=== PATIENT | male | born 1990 | race Caucasian/White ===

== ENCOUNTER 2019-01-10 14:12 | Inpatient (IN) ==
[2019-01-10] MEDS ORDERED: KETOROLAC 30 MG/ML VIAL IV STA (14:55)
[2019-01-10] MEDS ORDERED: SODIUM CHLORIDE 0.9% 1000ML 1,000 ML IV SCH (15:00)
--- NOTE | 2019-01-10 15:13 | Emergency Department Note ---
History of Present Illness General Chief complaint: Illness Stated complaint: BODY ACHES,HEADACHE,RIB PAIN Time Seen by Provider: 01/10/19 14:49 History of Present Illness Maximum Pain Intensity: 5 This is a 28-year-old male with a significant past medical history for that of liver transplantation and on Prograf. He was doing well up until 9 AM this morning when he began with head pressure, diffuse body aches, transition to a headache as well as right upper quadrant/right-sided rib/chest pain. He denies any close contacts, nausea, vomiting, diarrhea. He is short of breath and the pain is worse with a deep breath. He denies any other medical problems or other previous pertinent surgeries. No recent falls or trauma. His last dose of Prograf was at 8 AM. He had Tylenol earlier today. Home Medications Home Medications Medication Instructions Recorded Confirmed Type tacrolimus [Prograf] 2 mg PO Q12H 01/10/19 01/10/19 History Allergies Allergy/AdvReac Type Severity Reaction Status Date / Time albuterol Allergy Mild HIVES Verified 01/10/19 15:30 Past Med/Surg History Medical History Hx of liver transplant Per Dr. 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 He has had mild chronic rejection as late at 2008. At that time, per Dr. 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 Tang' s pediatric GI follow up. 02/09/13 admission for acute liver failure insufficiency, sudden onset with fever, fatigue: 02/10/13 liver bx showed Acute cholangitis 02/13/13 cholangiogram Imaging demonstrated a severe stricture at the biliary /bowel anastomotic site. There was moderate to severe biliary ducts dilatation on the cholangiogram. The anastomotic stenosis was negotiated and an internal external biliary drain was placed in appropriate position 02/20/13 cholangiogram IMAGING FINDINGS: Initial images from the existing biliary catheter demonstrated the catheter with the pigtail loop in satisfactory position. Cholangiogram demonstrated mild biliary ductal dilatation with contrast flow noted in the bowel. A new 8 Swiss biliary catheter was placed and the pigtail loop was appropriately formed in the bowel loop and the catheter sideholes were appropriately placed proximal to the biliary obstruction for adequate drainage. Mid 03-01, saw Dr. Lindo in clinic today, the patient had the biliary tube capped for 2 weeks with no symptoms. He was seen by transplant surgery on 03-11-13, got admitted to [facility] from 03-13-13 to 03-19-13 for disseminated varicella. He underwent CHOLANGIOGRAM BALLOON DILATATION AND CONVERSION OF EXT BILIARY DRAINAGE TO I/E BILIARY CATHETER on 03-24 by IR. He is taking prograf 2mg in AM and 3 mg in PM. Pt had cholangiogram on 04-22-13 that showed PERSISTENT MODERATEY SEVERE CHOLEDOCHO-ENTERIC ANASTOMOTIC STRICTURE. UPSIZED EXISTING 10-FR BILIARY DRAIN TO 12-FR INTERNAL EXTERNAL BILIARY DRAIN--> TUBE LEFT CAPPED Pt was scheduled for I/E biliary catheter exchange and upsizing to 14 Fr on 08-27-13. Last time Rt biliary catheter was changed on 10-21-13, there was a brisk flow of contrast through the catheter. Finally, pt's I/E biliary catheter was pulled out on 12-19-13. Review of labs show that T.bili is down to 2.6, FK levels (05-26-14): 4.2, Cr increased to 1.6 on tacrolimus 2 mg qam, 3 mg q pm. 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) Immunosuppressive therapy (Chronic 02/09/13) Liver transplant rejection (Resolved 02/09/13) Surgical History History of tonsillectomy and adenoidectomy History of tympanoplasty Family History Other No family history of disorders Social History marital status: Single Current Living Situation: Family Other Information That Helps Us Care for You: No Feels Safe at Home: Yes Safety Concerns: Feels Safe At This Time Smoking Status: Never smoker Do You Dip or Chew Tobacco: No Second Hand Exposure: No Tobacco Cessation Education Requested by Patient: No Hx Alcohol Use: No Hx Substance Use: No Beliefs That Will Affect Care: None Preferred Language: Ukrainian Communication Ability: Effective Agitator Operator Required: No Review of Systems A total of 10 systems reviewed and were otherwise negative Physical Exam Vital Signs Vital Signs - 24 hr 01/10/19 14:16 01/10/19 15:05 01/10/19 16:22 Temperature 39.3 C H 37.8 C H Temperature Source Oral Oral Sepsis Recent Fever Within 48 Hours Yes Sepsis New/Unexplained Change in Mental Status No Pulse Rate 144 H 115 H Pulse Rate [Apical] 114 H Pulse Rate [Finger] Pulse Rhythm Regular Pulse Rhythm [Apical] Regular Respiratory Rate 18 18 20 Respiratory Effort / Characteristics Non-Labored Spontaneous Respiratory Depth Normal Normal Respiratory Pattern Blood Pressure 139/89 Blood Pressure [Left Arm] 168/86 H Blood Pressure [Right Arm] Blood Pressure Mean 105 Blood Pressure Mean [Left Arm] 113 Blood Pressure Mean [Right Arm] Blood Pressure Position Sitting Blood Pressure Position [Right Arm] Pulse Oximetry 98 98 97 Oxygen Delivery Method Room Air Room Air Room Air 01/10/19 18:00 01/10/19 19:26 01/10/19 20:13 Temperature 37.3 C Temperature Source Oral Sepsis Recent Fever Within 48 Hours Sepsis New/Unexplained Change in Mental Status Pulse Rate 97 H Pulse Rate [Apical] 106 H 103 H Pulse Rate [Finger] Pulse Rhythm Pulse Rhythm [Apical] Regular Respiratory Rate 18 18 20 Respiratory Effort / Characteristics Non-Labored Non-Labored Spontaneous Respiratory Depth Normal Normal Respiratory Pattern Regular Regular Blood Pressure 125/96 Blood Pressure [Left Arm] 143/92 H Blood Pressure [Right Arm] 148/106 H Blood Pressure Mean Blood Pressure Mean [Left Arm] 109 Blood Pressure Mean [Right Arm] 120 Blood Pressure Position Blood Pressure Position [Right Arm] Lying Pulse Oximetry 97 97 100 Oxygen Delivery Method Room Air Room Air Room Air 01/10/19 20:30 01/10/19 23:13 Temperature 37.0 C Temperature Source Oral Sepsis Recent Fever Within 48 Hours Sepsis New/Unexplained Change in Mental Status Pulse Rate 108 H Pulse Rate [Apical] Pulse Rate [Finger] 102 H Pulse Rhythm Pulse Rhythm [Apical] Respiratory Rate 18 Respiratory Effort / Characteristics Respiratory Depth Normal Respiratory Pattern Blood Pressure Blood Pressure [Left Arm] Blood Pressure [Right Arm] 149/98 H Blood Pressure Mean Blood Pressure Mean [Left Arm] Blood Pressure Mean [Right Arm] 115 Blood Pressure Position Blood Pressure Position [Right Arm] Sitting Pulse Oximetry 97 Oxygen Delivery Method Room Air VITAL SIGNS - Vital signs and nursing notes were reviewed. Tachycardic, febrile. GENERAL - 28-year-old male appearign his stated age who is in no acute distress but does appear to be ill. Communicates well with provider and answers questions appropriately. SKIN - Without rashes. No meningeal or petechial rash. Questionable jaundiced appearing. HEAD - NC/AT. EYES - PERRL with EOMI bilaterally. Sclera anicteric. EARS - No deformities of external structures noted on gross examination bilaterally. NOSE - Midline and without cyanosis. No epistaxis or purulent drainage noted. MOUTH/OROPHARYNX - Without perioral cyanosis. NECK - Neck with FROM. Supple to palpation. No lymphadenopathy noted. No nuchal rigidity. LUNGS - Chest wall symmetric without accessory muscle use, intercostals retractions, or central cyanosis. Normal vesicular breath sounds CTA B/L. No wheezes, rales, or rhonchi appreciated. CARDIAC - RRR with S1/S2. No murmur, rubs, or gallops appreciated. There is reproducible right sided rib tenderness/right flank tenderness. ABDOMEN - Abdominal contour normal without pulsations or visible masses. BS normoactive all four quadrants. No tenderness, palpable masses, hepatosplenomegaly, or ascites noted. EXTREMITIES - No clubbing or peripheral cyanosis. No pretibial edema present. +3 /5 radial, posterior tibial, and dorsalis pedis pulses palpated throughout. +5/ 5 strength noted in UE/LE bilaterally. NEUROLOGIC - Cranial nerves II through XII grossly intact. Sensory intact to light touch throughout. PSYCH - A&Ox3 and cooperates fully with examiner. Pt is very pleasant and interacts well with examiner. Course Administered Medications Sodium Chloride (Nss) 500 mls @ 125 mls/hr IV .Q4H TRENT Stop: 02/09/19 19:14 Last Infusion: 01/10/19 21:20 Dose: 125 mls/hr Infusion: 01/10/19 20:50 Dose: 0 mls/hr Admin: 01/10/19 20:48 Dose: 125 mls/hr Ceftriaxone Sodium 1,000 mg/ (Dextrose) 50 mls @ 100 mls/hr IV Q24H [facility]; Protocol Stop: 01/12/19 20:29 Last Infusion: 01/10/19 21:20 Dose: 0 mls/hr Admin: 01/10/19 20:48 Dose: 100 mls/hr Tacrolimus (Prograf) 2 mg PO Q12H [facility] Stop: 02/09/19 20:29 Last Admin: 01/10/19 20:23 Dose: 2 mg Discontinued Medications Sodium Chloride (Nss 1000ml) 1,000 mls @ 999 mls/hr IV .Q1H1M TRENT Stop: 01/10/19 16:00 Last Infusion: 01/10/19 16:45 Dose: 0 mls/hr Admin: 01/10/19 15:40 Dose: 999 mls/hr Magnesium Sulfate/Dextrose (Magnesium Sulfate / D5w) 1 gm in 100 mls @ 100 mls/ hr IV Q1H TRENT Stop: 01/10/19 20:59 Last Infusion: 01/10/19 23:47 Dose: 0 mls/hr Admin: 01/10/19 22:20 Dose: 100 mls/hr Infusion: 01/10/19 22:20 Dose: 100 mls/hr Admin: 01/10/19 21:27 Dose: 100 mls/hr Ioversol (Optiray 320 125ml) 120 ml IV ONCE PRN PRN Reason: Interaction Checking Stop: 01/14/19 16:56 Last Admin: 01/10/19 16:58 Dose: 120 ml Ketorolac Tromethamine (Toradol) 30 mg IV NOW STA Stop: 01/10/19 14:56 Last Admin: 01/10/19 15:40 Dose: 30 mg Morphine Sulfate (Morphine Sulfate) 4 mg IV NOW STA Stop: 01/10/19 16:10 Last Admin: 01/10/19 16:21 Dose: 4 mg Medical Decision Making Laboratory Data Result diagrams: 01/10/19 15:35 01/10/19 15:35 Lab Results 01/10/19 01/10/19 01/10/19 Range/Units 15:08 15:08 15:35 WBC 12.61 H (4.8-10.8) K/uL RBC 5.26 (4.7-6.1) M/uL Hgb 15.2 (14.0-18.0) g/dL Hct 41.2 L (42-52) % MCV 78.3 L (80-100) fL MCH 28.9 (25-34) pg MCHC 36.9 H (32-36) g/dL RDW Std Deviation 38.7 (36.4-46.3) fL RDW Coeff of Emre 13.8 (11.5-14.5) % Plt Count 119 L (130-400) K/uL MPV 10.3 (7.4-10.4) fL Immature Gran % (Auto) 0.2 % Neut % (Auto) 90.9 % Lymph % (Auto) 2.6 % Lynn % (Auto) 6.2 % Eos % (Auto) 0.1 % Baso % (Auto) 0.0 % Immature Gran # (Auto) 0.03 H (0.00-0.02) K/uL Neut # (Auto) 11.46 H (1.4-6.5) K/uL Lymph # (Auto) 0.33 L (1.2-3.4) K/uL Lynn # (Auto) 0.78 H (0.11-0.59) K/uL Eos # (Auto) 0.01 (0-0.5) K/uL Baso # (Auto) 0.00 (0-0.2) K/uL PT (9.0-12.0) Seconds INR (0.9-1.1) APTT (21.0-31.0) Seconds PTT Ratio Sodium (136-145) mmol/L Potassium (3.5-5.1) mmol/L Chloride (98-107) mmol/L Carbon Dioxide (21-32) mmol/L Anion Gap (3-11) BUN (7-18) mg/dl Creatinine (0.6-1.4) mg/dl Est Cr Clr Drug Dosing ml/min Est GFR ( Amer) Est GFR (Non-Af Amer) BUN/Creatinine Ratio (10-20) Glucose (70-99) mg/dl Lactate (0.4-2.0) mmol/L Calcium (8.5-10.1) mg/dl Magnesium (1.8-2.4) mg/dl Total Bilirubin (0.2-1) mg/dl Direct Bilirubin (0-0.2) mg/dl AST (15-37) U/L ALT (12-78) U/L Alkaline Phosphatase (45-117) U/L Troponin I (0-0.045) ng/ml Total Protein (6.4-8.2) gm/dl Albumin (3.4-5.0) gm/dl Globulin (2.5-4.0) gm/dl Albumin/Globulin Ratio (0.9-2) Lipase (73-393) U/L Procalcitonin (0-0.5) ng/ml Urine Color Urine Appearance (Clear) Urine pH (4.5-7.5) Ur Specific [place] (1.000-1.030) Urine Protein (Negative) Urine Glucose (UA) (Negative) Urine Ketones (Negative) Urine Blood (Negative) Urine Nitrite (Negative) Urine Bilirubin (Negative) Urine Urobilinogen (Negative) Ur Leukocyte Esterase (Negative) Urine WBC (Auto) (0-5) /hpf Urine RBC (Auto) (0-4) /hpf U Hyaline Cast (Auto) (0-5) /lpf U Epithel Cells (Auto) (0-5) /lpf Urine Bacteria (Auto) (Negative) Lyme Disease IgG Ab (Negative) Lyme Disease IgM Ab (Negative) Monoscreen (Negative) Influenza Type A Ag Neg for Influ A (Neg) Influenza Type A (PCR) Neg for Influ A (Neg) Influenza Type B Ag Neg for Influ B (Neg) Influenza Type B (PCR) Neg for Influ B (Neg) 01/10/19 01/10/19 01/10/19 Range/Units 15:35 15:35 15:35 WBC (4.8-10.8) K/uL RBC (4.7-6.1) M/uL Hgb (14.0-18.0) g/dL Hct (42-52) % MCV (80-100) fL MCH (25-34) pg MCHC (32-36) g/dL RDW Std Deviation (36.4-46.3) fL RDW Coeff of Emre (11.5-14.5) % Plt Count (130-400) K/uL MPV (7.4-10.4) fL Immature Gran % (Auto) % Neut % (Auto) % Lymph % (Auto) % Lynn % (Auto) % Eos % (Auto) % Baso % (Auto) % Immature Gran # (Auto) (0.00-0.02) K/uL Neut # (Auto) (1.4-6.5) K/uL Lymph # (Auto) (1.2-3.4) K/uL Lynn # (Auto) (0.11-0.59) K/uL Eos # (Auto) (0-0.5) K/uL Baso # (Auto) (0-0.2) K/uL PT 12.2 H (9.0-12.0) Seconds INR 1.2 H (0.9-1.1) APTT 27.5 (21.0-31.0) Seconds PTT Ratio 1.0 Sodium 134 L (136-145) mmol/L Potassium 3.5 (3.5-5.1) mmol/L Chloride 101 (98-107) mmol/L Carbon Dioxide 26 (21-32) mmol/L Anion Gap 7.0 (3-11) BUN 16 (7-18) mg/dl Creatinine 1.47 H (0.6-1.4) mg/dl Est Cr Clr Drug Dosing 90.1 ml/min Est GFR ( Amer) 74.2 Est GFR (Non-Af Amer) 64.0 BUN/Creatinine Ratio 11.0 (10-20) Glucose 104 H (70-99) mg/dl Lactate 1.1 (0.4-2.0) mmol/L Calcium 9.0 (8.5-10.1) mg/dl Magnesium 1.4 L (1.8-2.4) mg/dl Total Bilirubin 5.8 H (0.2-1) mg/dl Direct Bilirubin 0.5 H (0-0.2) mg/dl AST 44 H (15-37) U/L ALT 82 H (12-78) U/L Alkaline Phosphatase 117 (45-117) U/L Troponin I < 0.015 (0-0.045) ng/ml Total Protein 8.1 (6.4-8.2) gm/dl Albumin 4.2 (3.4-5.0) gm/dl Globulin 3.9 (2.5-4.0) gm/dl Albumin/Globulin Ratio 1.1 (0.9-2) Lipase 101 (73-393) U/L Procalcitonin (0-0.5) ng/ml Urine Color Urine Appearance (Clear) Urine pH (4.5-7.5) Ur Specific [place] (1.000-1.030) Urine Protein (Negative) Urine Glucose (UA) (Negative) Urine Ketones (Negative) Urine Blood (Negative) Urine Nitrite (Negative) Urine Bilirubin (Negative) Urine Urobilinogen (Negative) Ur Leukocyte Esterase (Negative) Urine WBC (Auto) (0-5) /hpf Urine RBC (Auto) (0-4) /hpf U Hyaline Cast (Auto) (0-5) /lpf U Epithel Cells (Auto) (0-5) /lpf Urine Bacteria (Auto) (Negative) Lyme Disease IgG Ab (Negative) Lyme Disease IgM Ab (Negative) Monoscreen (Negative) Influenza Type A Ag (Neg) Influenza Type A (PCR) (Neg) Influenza Type B Ag (Neg) Influenza Type B (PCR) (Neg) 01/10/19 01/10/19 01/10/19 Range/Units 15:35 19:35 20:32 WBC (4.8-10.8) K/uL RBC (4.7-6.1) M/uL Hgb (14.0-18.0) g/dL Hct (42-52) % MCV (80-100) fL MCH (25-34) pg MCHC (32-36) g/dL RDW Std Deviation (36.4-46.3) fL RDW Coeff of Emre (11.5-14.5) % Plt Count (130-400) K/uL MPV (7.4-10.4) fL Immature Gran % (Auto) % Neut % (Auto) % Lymph % (Auto) % Lynn % (Auto) % Eos % (Auto) % Baso % (Auto) % Immature Gran # (Auto) (0.00-0.02) K/uL Neut # (Auto) (1.4-6.5) K/uL Lymph # (Auto) (1.2-3.4) K/uL Lynn # (Auto) (0.11-0.59) K/uL Eos # (Auto) (0-0.5) K/uL Baso # (Auto) (0-0.2) K/uL PT (9.0-12.0) Seconds INR (0.9-1.1) APTT (21.0-31.0) Seconds PTT Ratio Sodium (136-145) mmol/L Potassium (3.5-5.1) mmol/L Chloride (98-107) mmol/L Carbon Dioxide (21-32) mmol/L Anion Gap (3-11) BUN (7-18) mg/dl Creatinine (0.6-1.4) mg/dl Est Cr Clr Drug Dosing ml/min Est GFR ( Amer) Est GFR (Non-Af Amer) BUN/Creatinine Ratio (10-20) Glucose (70-99) mg/dl Lactate (0.4-2.0) mmol/L Calcium (8.5-10.1) mg/dl Magnesium (1.8-2.4) mg/dl Total Bilirubin (0.2-1) mg/dl Direct Bilirubin (0-0.2) mg/dl AST (15-37) U/L ALT (12-78) U/L Alkaline Phosphatase (45-117) U/L Troponin I (0-0.045) ng/ml Total Protein (6.4-8.2) gm/dl Albumin (3.4-5.0) gm/dl Globulin (2.5-4.0) gm/dl Albumin/Globulin Ratio (0.9-2) Lipase (73-393) U/L Procalcitonin 3.79 H (0-0.5) ng/ml Urine Color Yellow Urine Appearance Clear (Clear) Urine pH 5.5 (4.5-7.5) Ur Specific [place] 1.038 H (1.000-1.030) Urine Protein Negative (Negative) Urine Glucose (UA) Negative (Negative) Urine Ketones Negative (Negative) Urine Blood Trace H (Negative) Urine Nitrite Negative (Negative) Urine Bilirubin Negative (Negative) Urine Urobilinogen Positive H (Negative) Ur Leukocyte Esterase Negative (Negative) Urine WBC (Auto) 0 (0-5) /hpf Urine RBC (Auto) 0-4 (0-4) /hpf U Hyaline Cast (Auto) 0 (0-5) /lpf U Epithel Cells (Auto) 0-5 (0-5) /lpf Urine Bacteria (Auto) Negative (Negative) Lyme Disease IgG Ab Positive H (Negative) Lyme Disease IgM Ab Negative (Negative) Monoscreen Negative (Negative) Influenza Type A Ag (Neg) Influenza Type A (PCR) (Neg) Influenza Type B Ag (Neg) Influenza Type B (PCR) (Neg) Imaging Data Radiologist's Impression: XR chest 1V portable HISTORY: 28 years-old Male fever, R sided chest pain fever with acute right- sided chest pain COMPARISON: Chest radiograph 03/26/2013 TECHNIQUE: Portable AP view of the chest FINDINGS: Cardiomediastinal and hilar silhouettes are within normal limits. There is no pneumothorax, pleural effusion, focal airspace consolidation or overt pulmonary edema. Bones of the chest appear grossly intact. IMPRESSION: No acute process. The above report was generated using voice recognition software. It may contain grammatical, syntax or spelling errors. Electronically signed by: Javi Hodge M.D. 01/10/2019 3:[address] angio chest PE protocol CLINICAL HISTORY: 28 years-old Male presenting with right chest pain worse with inspiration, febrile. TECHNIQUE: Multidetector CT angiography of the chest was performed after administration of intravenous contrast. 3-D volumetric and/or maximum intensity projection (MIP) images were subsequently reconstructed for review. IV contrast : 120 mL of Optiray 320. One or more dose lowering techniques were used consistent with the principles of ALARA (as low as reasonably achievable), including automatic exposure control, mA or kV adjustment to individual patient size, and/or use of iterative reconstruction. COMPARISON: Chest x-ray from earlier today. CT DOSE (mGy.cm): The estimated cumulative dose is 1218.84. FINDINGS: Inspector Cold Working topogram: Unremarkable. Pulmonary vasculature: The study is suboptimal for the assessment of the pulmonary vascular tree secondary to timing of the contrast bolus and respiratory motion artifact. No filling defect within the pulmonary arteries to suggest embolus. Main pulmonary artery is not enlarged. No flattening of the interventricular septum. No intracardiac filling defect. No reflux of contrast into the hepatic veins. Remaining chest: Soft tissues: Normal thyroid and thoracic inlet. No axillary, supraclavicular, mediastinal, or hilar lymphadenopathy. Prominent pericardial lymph node measuring 8 mm in the short axis (series 4 image 17). Normal aorta. Normal heart size. Trace bilateral pleural effusions. No pericardial effusion. Fat- containing right Bochdalek hernia. Pneumobilia. This was present in 2012. Lungs and airways: No pneumothorax. Central airways patent. No focal infiltrate or nodule. Pulmonary arteries are not enlarged relative to adjacent bronchi. No interlobular septal thickening. Musculoskeletal: Suggestion of increased sclerosis of the vertebral bodies. Mild height loss of the mid thoracic vertebral bodies. IMPRESSION: 1. No evidence of pulmonary embolus. No acute intrathoracic pathology. 2. Bilateral trace pleural effusions. 3. Mid thoracic vertebral body height loss combined with possible abnormal sclerosis of the vertebral bodies. This may suggest underlying renal osteodystrophy. Electronically signed by: Hernando Stallings M.D. 01/10/2019 5:[address] abd pelvis IV con only CLINICAL HISTORY: 28 years-old Male presenting with R chest pain, worse with inspiration. Febrile, history liver transplant. TECHNIQUE: Multidetector CT of the abdomen and pelvis was performed after the administration of intravenous contrast. IV contrast: 120 mL of Optiray 320. One or more dose lowering techniques were used consistent with the principles of ALARA (as low as reasonably achievable), including automatic exposure control, mA or kV adjustment to individual patient size, and/or use of iterative reconstruction. COMPARISON: 03/13/2013. CT DOSE (mGy.cm): The estimated cumulative dose is 1218.84 mGy.cm. FINDINGS: Inspector Cold Working topogram: Unremarkable. Lung bases: Normal heart size. Trace bilateral pleural effusions. These are similar to prior. No pericardial effusion. Bochdalek hernia on the right containing fat. No focal infiltrate or nodule at the lung bases. Liver: Reportedly the patient is status post liver transplant. The orthotopic liver has a micronodular contour. No focal lesion. Patent hepatic vasculature. Biliary: Pneumobilia again present secondary to the hepaticojejunostomy. Mild to moderate biliary ductal dilatation in segment 8 and 5 slightly progressed from prior exam. Gallbladder surgically absent. Pancreas: Moderate parenchymal atrophy. Spleen: Enlarged measuring nearly 16 cm in maximal sagittal dimension. Adrenal glands: Normal. Kidneys and ureters: Focal hypodensity at the right upper pole may represent a cyst versus scarring. Small cyst also noted in the left kidney area kidneys otherwise normal in appearance. No nephrolithiasis or hydronephrosis. Ureters nondistended. Bladder: Circumferential bladder wall thickening. Pelvic organs: Prostate and seminal vesicles normal. Bowel: Mild stool burden throughout normal caliber colon. The appendix is mildly prominent with a diameter of nearly 8 mm. The appearance is similar to prior exam. No periappendiceal fat infiltration or wall thickening. No bowel obstruction. Patent enteroenteric anastomosis in the mid abdomen. A hepaticojejunostomy is present. No pathologic distention of the biliary limb. Peritoneal cavity: No free fluid or intraperitoneal gas. Lymph nodes: Few subcentimeter prominent mesenteric lymph nodes, possibly reactive. Vasculature: Aorta and IVC patent and normal in caliber. The splenic vein is engorged. There is tortuosity of splenic vessels. No other gross evidence of varices. Abdominal wall: Normal. Musculoskeletal: Suggestion of mild diffuse sclerosis of the osseous structures. IMPRESSION: 1. Micronodular contour of the liver could suggest underlying fibrosis/ cirrhosis. Reportedly the patient is status post liver transplant. Patent hepatic vasculature. 2. Stable to slightly progressed biliary ductal dilatation in segment 8 and 5 likely relates biliary injury/necrosis in the immediate perioperative setting and chronic sequelae. 3. Portal hypertension with splenomegaly. 4. Circumferential bladder wall thickening could suggest cystitis. Correlate with urinalysis. 5. Questionable diffuse osseous sclerosis. Correlate for possible underlying osteodystrophy. Electronically signed by: Hernando Stallings M.D. 01/10/2019 5:16 PM MDM Narrative Patient was seen and evaluated as above in room C1. Review was performed of nursing notes and vital signs. After obtaining a thorough history and physical examination the above work up was performed. He presents to us today tachycardic, and with a fever. He does appear to be ill but is nontoxic on exam. IV access was established. He was ordered fluids, as well as Toradol for pain. He was reevaluated with persistence and given morphine. There is leukocytosis of 12.61 without emergent anemia noted. Creatinine of 1.47. Total bilirubin 5.8, with direct bilirubin of 0.5. Mild elevation of AST and ALT. Troponin negative. Lactic is normal. Blood cultures pending. Urinalysis reveals positive urobilinogen but no evidence of infection. Chest x- ray normal. CAT scan was then obtained given his persistent pain in the right ribs which is exacerbated with a deep breath. No PE. Also abdomen pelvis were ordered. No direct finding which would correlate with his presentation today. Although there certainly are additional findings which will need further addressed. I do believe that further evaluation in the inpatient setting is warranted for the fever and presentation. Case also discussed with the attending physician, and subsequently the hospitalist. At this time given that no source has been found do believe that we can wait to add empiric antibiotics pending evaluation by the hospitalist. Please refer to further documentation regarding his stay. Additionally, I did discuss whether or not to perform lumbar puncture with the patient, family at bedside and the attending physician , at this time through shared decision making with the patient we will refrain. In the evaluation and treatment of this patient the following differential diagnoses were entertained: Sepsis, cellulitis, influenza, Lyme disease, transplant rejection, UTI, pericarditis, PE, pneumonia, among others. Impression & Plan Fever, Hyperbilirubinemia, Rib pain on right side, Headache Discharge Plan Visit Data *Final* Discharge Date/Time: 01/10/19 19:26 Chief Complaint: Illness Stated Complaint: BODY ACHES,HEADACHE,RIB PAIN ED Provider: Jesus Horner ED Midlevel Provider: Max Singletary Discharge Problem: Fever, Hyperbilirubinemia, Rib pain on right side, Headache Patient Disposition: Admitted As Inpatient Condition: Good Discharge Instructions Interventions: ED Discharge Assessment Last Done: 01/10/19 19:26
[2019-01-10 15:55] LABS: Eosinophils # (auto) 0.01 K/uL (0-0.5); Eosinophils % (auto) 0.1 %; Hematocrit (blood only) 41.2 % (42-52); Hemoglobin 15.2 g/dL (14.0-18.0); Immature Granulocytes # (auto) 0.03 K/uL (0.00-0.02); Immature Granulocytes % (auto) 0.2 %; Lymphocytes # (auto) 0.33 K/uL (1.2-3.4); Lymphocytes % (auto) 2.6 %; Mean Corpuscular Hgb Conc 36.9 g/dL (32-36); Mean Corpuscular Volume 78.3 fL (80-100); Mean Platelet Volume 10.3 fL (7.4-10.4); Monocytes # (auto) 0.78 K/uL (0.11-0.59); Monocytes % (auto) 6.2 %; Neutrophils # (auto) 11.46 K/uL (1.4-6.5); Neutrophils % (auto) 90.9 %; Platelet Count 119 K/uL (130-400); RDW Coefficient of Variation 13.8 % (11.5-14.5); RDW Standard Deviation 38.7 fL (36.4-46.3); Red Blood Count 5.26 M/uL (4.7-6.1); White Blood Count 12.61 K/uL (4.8-10.8)
--- NOTE | 2019-01-10 15:57 | XRay Report ---
XR chest 1V portable HISTORY: 28 years-old Male fever, R sided chest pain fever with acute right-sided chest pain COMPARISON: Chest radiograph 03/26/2013 TECHNIQUE: Portable AP view of the chest FINDINGS: Cardiomediastinal and hilar silhouettes are within normal limits. There is no pneumothorax, pleural e ffusion, focal airspace consolidation or overt pulmonary edema. Bones of the chest appear grossly int act. IMPRESSION: No acute process. The above report was generated using voice recognition software. It may contain grammatical, syntax o r spelling errors. Electronically signed by: Javi Hodge M.D. 01/10/2019 3:55 PM
[2019-01-10 16:07] LABS: INR 1.2 (0.9-1.1); Partial Thromboplastin Time 27.5 Seconds (21.0-31.0); Prothrombin Time 12.2 Seconds (9.0-12.0)
[2019-01-10] MEDS ORDERED: MoRPHine SULFATE 4 MG/ML 1 ML CARP\\VIAL IV STA (16:09)
[2019-01-10 16:24] LABS: Alanine Aminotransferase 82 U/L (12-78); Albumin Level 4.2 gm/dl (3.4-5.0); Aspartate Aminotransferase 44 U/L (15-37); Bilirubin Direct 0.5 mg/dl (0-0.2); Blood Urea Nitrogen 16 mg/dl (7-18); Carbon Dioxide 26 mmol/L (21-32); Chloride 101 mmol/L (98-107); Creatinine Clr Calc Pharmacy 90.1 ml/min; Est GFR (African American) 74.2; Glucose 104 mg/dl (70-99); Magnesium 1.4 mg/dl (1.8-2.4); Potassium 3.5 mmol/L (3.5-5.1); Sodium 134 mmol/L (136-145)
[2019-01-10 16:44] LABS: Albumin Globulin Ratio 1.1 (0.9-2); Alkaline Phosphatase 117 U/L (45-117); Bilirubin,Total 5.8 mg/dl (0.2-1); Globulin 3.9 gm/dl (2.5-4.0); Total Protein 8.1 gm/dl (6.4-8.2); Troponin I < 0.015 ng/ml (0-0.045)
[2019-01-10] MEDS ORDERED: OPTIRAY 320 125ml IV PRN (16:57)
--- NOTE | 2019-01-10 17:07 | CT Scan Report ---
CT angio chest PE protocol CLINICAL HISTORY: 28 years-old Male presenting with right chest pain worse with inspiration, febrile. TECHNIQUE: Multidetector CT angiography of the chest was performed after administration of intravenou s contrast. 3-D volumetric and/or maximum intensity projection (MIP) images were subsequently reconst ructed for review. IV contrast: 120 mL of Optiray 320. One or more dose lowering techniques were used consistent with the principles of ALARA (as low as reasonably achievable), including automatic expos ure control, mA or kV adjustment to individual patient size, and/or use of iterative reconstruction. COMPARISON: Chest x-ray from earlier today. CT DOSE (mGy.cm): The estimated cumulative dose is 1218.84. FINDINGS: [place] topogram: Unremarkable. Pulmonary vasculature: The study is suboptimal for the assessment of the pulmonary vascular tree secondary to timing of the contrast bolus and respiratory motion artifact. No filling defect within the pulmonary arteries to garcia ggest embolus. Main pulmonary artery is not enlarged. No flattening of the interventricular septum. N o intracardiac filling defect. No reflux of contrast into the hepatic veins. Remaining chest: Soft tissues: Normal thyroid and thoracic inlet. No axillary, supraclavicular, mediastinal, or hilar lymphadenopathy. Prominent pericardial lymph node measuring 8 mm in the short axis (series 4 image 17 ). Normal aorta. Normal heart size. Trace bilateral pleural effusions. No pericardial effusion. Fat-c ontaining right Bochdalek hernia. Pneumobilia. This was present in 2013. Lungs and airways: No pneumothorax. Central airways patent. No focal infiltrate or nodule. Pulmonary arteries are not enlarged relative to adjacent bronchi. No interlobular septal thickening. Musculoskeletal: Suggestion of increased sclerosis of the vertebral bodies. Mild height loss of the m id thoracic vertebral bodies. IMPRESSION: 1. No evidence of pulmonary embolus. No acute intrathoracic pathology. 2. Bilateral trace pleural effusions. 3. Mid thoracic vertebral body height loss combined with possible abnormal sclerosis of the vertebra l bodies. This may suggest underlying renal osteodystrophy. Electronically signed by: Hernando Stallings M.D. 01/10/2019 5:05 PM
--- NOTE | 2019-01-10 17:18 | CT Scan Report ---
CT abd pelvis IV con only CLINICAL HISTORY: 28 years-old Male presenting with R chest pain, worse with inspiration. Febrile, hi story liver transplant. TECHNIQUE: Multidetector CT of the abdomen and pelvis was performed after the administration of intra venous contrast. IV contrast: 120 mL of Optiray 320. One or more dose lowering techniques were used c onsistent with the principles of ALARA (as low as reasonably achievable), including automatic exposur e control, mA or kV adjustment to individual patient size, and/or use of iterative reconstruction. COMPARISON: 03/13/2013. CT DOSE (mGy.cm): The estimated cumulative dose is 1218.84 mGy.cm. FINDINGS: Protective Service Specialist topogram: Unremarkable. Lung bases: Normal heart size. Trace bilateral pleural effusions. These are similar to prior. No darcie cardial effusion. Bochdalek hernia on the right containing fat. No focal infiltrate or nodule at the lung bases. Liver: Reportedly the patient is status post liver transplant. The orthotopic liver has a micronodula r contour. No focal lesion. Patent hepatic vasculature. Biliary: Pneumobilia again present secondary to the hepaticojejunostomy. Mild to moderate biliary joellen palma dilatation in segment 8 and 5 slightly progressed from prior exam. Gallbladder surgically absent. Pancreas: Moderate parenchymal atrophy. Spleen: Enlarged measuring nearly 16 cm in maximal sagittal dimension. Adrenal glands: Normal. Kidneys and ureters: Focal hypodensity at the right upper pole may represent a cyst versus scarring. Small cyst also noted in the left kidney area kidneys otherwise normal in appearance. No nephrolithia sis or hydronephrosis. Ureters nondistended. Bladder: Circumferential bladder wall thickening. Pelvic organs: Prostate and seminal vesicles normal. Bowel: Mild stool burden throughout normal caliber colon. The appendix is mildly prominent with a luis alfredo meter of nearly 8 mm. The appearance is similar to prior exam. No periappendiceal fat infiltration or wall thickening. No bowel obstruction. Patent enteroenteric anastomosis in the mid abdomen. A hepati cojejunostomy is present. No pathologic distention of the biliary limb. Peritoneal cavity: No free fluid or intraperitoneal gas. Lymph nodes: Few subcentimeter prominent mesenteric lymph nodes, possibly reactive. Vasculature: Aorta and IVC patent and normal in caliber. The splenic vein is engorged. There is tortu osity of splenic vessels. No other gross evidence of varices. Abdominal wall: Normal. Musculoskeletal: Suggestion of mild diffuse sclerosis of the osseous structures. IMPRESSION: 1. Micronodular contour of the liver could suggest underlying fibrosis/cirrhosis. Reportedly the pat ient is status post liver transplant. Patent hepatic vasculature. 2. Stable to slightly progressed biliary ductal dilatation in segment 8 and 5 likely relates biliary injury/necrosis in the immediate perioperative setting and chronic sequelae. 3. Portal hypertension with splenomegaly. 4. Circumferential bladder wall thickening could suggest cystitis. Correlate with urinalysis. 5. Questionable diffuse osseous sclerosis. Correlate for possible underlying osteodystrophy. Electronically signed by: Hernando Stallings M.D. 01/10/2019 5:16 PM
--- NOTE | 2019-01-10 19:20 | History & Physical Report ---
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 Sx started approx 9am. Developed body aches, myalgias, sweats, feverish, headache, right sided chest pain. Pt met SIRS critera on admission febrile 39.3, tachycardic at 115, WBC 12.6k other notable abnormalities Na 134, Cr 1.47, PLT 119, INR 1.2, Tbili 5.8, Direct 0.5, AST 44, ALT 82, Mag 1.4 He received 1L IVF in ED No IV antibiotics given Source of infection: Unknown, CXR negative, UA and blood cultures pending, flu negative, ?viral syndrome Pt last bilirubin was done in 2014 and was elevated at 2.6 but lft wnl (Pt allograft liver tested + for [place] syndrome) which would cause notable indirect bilirubin elevation -admit to telemetry -continue IVF 125cc/hr -Give 1g rocephin x 1 now -check viral serologies, lyme titer, influenza pcr -await blood and urine cultures -repeat cbc, cmp in a.m. 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 Micronodular contour of the liver could suggest underlying fibrosis/ cirrhosis. Reportedly the patient is status post liver transplant. Patent hepatic vasculature. 2. Stable to slightly progressed biliary ductal dilatation in segment 8 and 5 likely relates biliary injury/necrosis in the immediate perioperative setting and chronic sequelae. 3. Portal hypertension with splenomegaly. 4. Circumferential bladder wall thickening could suggest cystitis. Correlate with urinalysis. 5. Questionable diffuse osseous sclerosis. Correlate for possible underlying osteodystrophy. -notable lab abnormalities include thrombocytopenia (? if chronic vs acute inflammatory resp), elevated bili/indirect bili -monitor lft if continue to worsen would recommend GI involvement (3) Immunocompromised state: -on prograf, check prograf level (4) Hypomagnesemia: -Mag sulfate x 2 ordered -repeat mag in a.m. (5) HTN (hypertension): -had been on labetalol but currently not taking -will need to monitor blood pressure accordingly (6) [id number]-[id number] deficiency: (7) DVT prophylaxis: -encourage ambulation Disposition: d/c to home when able Follow up: PCP Dr. Zavala upon discharge; also patient has not followed up with Hepatology since 2014 it will be imperative a follow up is made. He use to see Dr. Ariza in [place] and it is recommended he follow up with new provider in [place]. Patient was seen in collaboration with Dr. Villagran, please see addendum Starting 01/11/19 pt will be followed by Dr. Gallegos History of Present Illness Chief Complaint: Fever, acute illness x 1 day. 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 Sx started approx 9am. Developed body aches, myalgias, sweats, feverish, headache, right sided chest pain. Sx developed abruptly. R chest wall discomfort was non radiating, located R lateral chest wall, worse with inspiration, nothing made better. Appetite is normal. He denies chills, dizziness, lightheaded, sob, palpitations, n/v/d, abdominal pain, dysuria, hematuria, increased urg/freq with urination. Mother is at bedside. States no sick contacts, "we don't let him leave the house much." No recent travel or insect bites. While in ED pt received IVF and chest discomfort resolved with IV toradol. According to SEAN Singletary in ED right chest wall discomfort was lateral and reproducible, again relieved with toradol. Allergies Allergy/AdvReac Type Severity Reaction Status Date / Time albuterol Allergy Mild HIVES Verified 01/10/19 15:30 Home Medications Home Medications Medication Instructions Recorded Confirmed Type tacrolimus [Prograf] 2 mg PO Q12H 01/10/19 01/10/19 History Past Med/Surg History Medical History Hx of liver transplant Per Dr. Ariza note from 05/13/2015: "He is status post a OLT at [facility] in [place] x2 (1992 for A1AT and 1995 for chronic rejection). He has had mild chronic rejection as late at 2008. At that time, per Dr. 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 Tang' s pediatric GI follow up. 02/09/13 admission for acute liver failure insufficiency, sudden onset with fever, fatigue: 02/10/13 liver bx showed Acute cholangitis 02/13/13 cholangiogram Imaging demonstrated a severe stricture at the biliary /bowel anastomotic site. There was moderate to severe biliary ducts dilatation on the cholangiogram. The anastomotic stenosis was negotiated and an internal external biliary drain was placed in appropriate position 02/20/13 cholangiogram IMAGING FINDINGS: Initial images from the existing biliary catheter demonstrated the catheter with the pigtail loop in satisfactory position. Cholangiogram demonstrated mild biliary ductal dilatation with contrast flow noted in the bowel. A new 8 Tajik biliary catheter was placed and the pigtail loop was appropriately formed in the bowel loop and the catheter sideholes were appropriately placed proximal to the biliary obstruction for adequate drainage. Mid 03-01, saw Dr. Lindo in clinic today, the patient had the biliary tube capped for 2 weeks with no symptoms. He was seen by transplant surgery on 03-11-13, [place] [facility] [place] for disseminated varicella. He underwent CHOLANGIOGRAM BALLOON DILATATION AND CONVERSION OF EXT BILIARY DRAINAGE TO I/E BILIARY CATHETER on 03-24 by IR. He is taking prograf 2mg in AM and 3 mg in PM. Pt had cholangiogram on 04-22-13 that showed PERSISTENT MODERATEY SEVERE CHOLEDOCHO-ENTERIC ANASTOMOTIC STRICTURE. UPSIZED EXISTING 10-FR BILIARY DRAIN TO 12-FR INTERNAL EXTERNAL BILIARY DRAIN--> TUBE LEFT CAPPED Pt was scheduled for I/E biliary catheter exchange and upsizing to 14 Fr on 08-27-13. Last time Rt biliary catheter was changed on 10-21-13, there was a brisk flow of contrast through the catheter. Finally, pt's I/E biliary catheter was pulled out on 12-19-13. Review of labs show that T.bili is down to 2.6, FK levels (05-26-14): 4.2, Cr increased to 1.6 on tacrolimus 2 mg qam, 3 mg q pm. Immunocompromised state History of gout (Chronic) [id number] deficiency (Resolved 02/09/13) Immunosuppressive therapy (Chronic 02/09/13) Liver transplant rejection (Resolved 02/09/13) Surgical History History of tonsillectomy and adenoidectomy History of tympanoplasty Family History Other No family history of disorders Social History marital status: Single Current Living Situation: Family Feels Safe at Home: Yes Smoking Status: Never smoker Hx Alcohol Use: No Hx Substance Use: No Preferred Language: Bengali Review of Systems All systems reviewed & are unremarkable except as noted in HPI & below Physical Exam 2 Vital Signs (Past 24 Hours): Last Vital Signs Temp 37.8 C H 01/10/19 16:22 Pulse 106 H 01/10/19 18:00 Resp 18 01/10/19 18:00 BP 143/92 H 01/10/19 18:00 Pulse Ox 97 01/10/19 18:00 Physical Exam: Gen: WD/WN, M, Pale, ill appearing, NAD, sitting up in bed, pleasant, conversing easily Head: Normocephalic, Atraumatic Eyes: Sclera normal, no conjunctival injection, PERRLA, EOMI ENT: Gross hearing intact, normal pharynx, mucous membranes moist Neck: supple, no adenopathy, No JVD, no bruit, Resp: Clear to auscultation b/l, no wheeze, rales, rhonchi. Normal insp/exp effort, no accessory muscle use CV: tachycardic rate, regular rhythm, no murmur, rub, gallop, or ectopy Abd: +BS x 4, soft, nontender, nondistended Musculoskeletal: moves extremities active rom x 4, strength intact, good news production assistant strength Extremities: No edema bilaterally Skin: warm, moist, no rash, negative turgor, cap refill < 2sec Neuro: Alert and oriented x 3, speech normal, good mood/affect, cran nerve 2-12 intact grossly : deferred Results & Data Laboratory Results Short CBC 01/10/19 Range/Units 15:35 WBC 12.61 H (4.8-10.8) K/uL Hgb 15.2 (14.0-18.0) g/dL Hct 41.2 L (42-52) % Plt Count 119 L (130-400) K/uL BMP 01/10/19 15:35 Sodium 134 L Potassium 3.5 Chloride 101 Carbon Dioxide 26 BUN 16 Creatinine 1.47 H Glucose 104 H Calcium 9.0 Cardiac Enzymes 01/10/19 Range/Units 15:35 Troponin I < 0.015 (0-0.045) ng/ml Liver Function 01/10/19 Range/Units 15:35 Total Bilirubin 5.8 H (0.2-1) mg/dl Direct Bilirubin 0.5 H (0-0.2) mg/dl AST 44 H (15-37) U/L ALT 82 H (12-78) U/L Alkaline Phosphatase 117 (45-117) U/L Albumin 4.2 (3.4-5.0) gm/dl Diagnostic Findings Chest CTA: IMPRESSION: 1. No evidence of pulmonary embolus. No acute intrathoracic pathology. 2. Bilateral trace pleural effusions. 3. Mid thoracic vertebral body height loss combined with possible abnormal sclerosis of the vertebral bodies. This may suggest underlying renal osteodystrophy. Abd/Pelvis CT: IMPRESSION: 1. Micronodular contour of the liver could suggest underlying fibrosis/ cirrhosis. Reportedly the patient is status post liver transplant. Patent hepatic vasculature. 2. Stable to slightly progressed biliary ductal dilatation in segment 8 and 5 likely relates biliary injury/necrosis in the immediate perioperative setting and chronic sequelae. 3. Portal hypertension with splenomegaly. 4. Circumferential bladder wall thickening could suggest cystitis. Correlate with urinalysis. 5. Questionable diffuse osseous sclerosis. Correlate for possible underlying osteodystrophy. CXR: IMPRESSION: No acute process. ECG Rate (beats per minute): 113 Rhythm: sinus tachycardia Code Status & VTE Plan Code Status Full Code VTE Prophylaxis Plan VTE Prophylaxis will be ordered: No Reason for no VTE drug order: Treatment not indicated Reason for no VTE mechanical prophylaxis: Treatment not indicated Supervising Physician Co-Signing Physician Notes Patient is a 28-year-old male with history of liver transplant X2 secondary to rejection and other problems presents with history of fever, weakness, body aches, transient headache, episode of right-sided pleuritic chest pain. Denies any recent travel or sick contact. Patient meets sirs criteria but no obvious source of infection is identified. Imaging studies suggest possible cystitis but patient denies any urinary symptoms and UA not suggestive of UTI. Differential: viral etiology, possible cystitis, ? Graft rejection, Bacteremia. Flu PCR screen is pending. On exam patient is moderately built and nourished , no apparent distress, lungs are clear to auscultation, S1-S2,+ tachycardia, abdomen soft nontender, alert awake oriented, no neurological focal deficits, no neck rigidity, no pedal edema. Patient will be started on IV fluids, empirically ceftriaxone initiated. Wait for influenza PCR screen. Blood cultures obtained. Monitor LFTs. Check viral serologies. Lyme screen negative. Normal lactate levels. Negative mono screen. Check blood peripheral smear. Consider infectious disease consult if clinically deteriorates. Obtain prograf levels. Given history of liver transplant consider discussing with transplant center if clinically required. I personally reviewed the record. Patient is interviewed and examined at bedside. Patient's care is coordinated with Esther Yoon PA-C. Please refer to the documentation above for details of patient's presentation and for discussion of other issues. _ (1) HTN (hypertension) Hypertension type: unspecified Qualified Code(s): I10 - Essential (primary) hypertension
[2019-01-10] MEDS ORDERED: ACETAMINOPHEN 325 MG TAB PO PRN (19:59)
[2019-01-10] MEDS ORDERED: ONDANSETRON INJ 2 MG/ML 2 ML VIAL IV PRN (19:59)
[2019-01-10] MEDS ORDERED: MAGNESIUM HYDROXIDE SUSP 30 ML UDC PO PRN (19:59)
[2019-01-10] MEDS ORDERED: POLYETHYLENE (MIRALAX) 17 GM PACK PO PRN (19:59)
[2019-01-10] MEDS ORDERED: ALUMINUM/MAGNESIUM SUSP 30 ML UDC PO PRN (19:59)
[2019-01-10 20:18] LABS: Appearance Urine Clear (Clear); Bacteria Urine Automated Negative (Negative); Bilirubin Urine Negative (Negative); Cast Urine Automated 0 /lpf (0-5); Color Urine Yellow; Epithelial Cell Urine Auto 0-5 /lpf (0-5); Glucose Urine UA Negative (Negative); Ketones Urine Negative (Negative); Leukocyte Esterase Urine Negative (Negative); Nitrite Urine Negative (Negative); Protein Urine Negative (Negative); Specific Gravity Urine 1.038 (1.000-1.030); Urobilinogen Urine Positive (Negative); WBC Urine Automated 0 /hpf (0-5); pH Urine 5.5 (4.5-7.5)
[2019-01-10] MEDS: TACROLIMUS 1 MG CAP PO SCH (20:23)
[2019-01-10 20:24] LABS: Lyme Ab IgM w/WB Rflx Negative (Negative)
[2019-01-10] MEDS ORDERED: cefTRIAXone SODIUM 1,000 MG in DEXTROSE 5% 50 ML IV SCH (20:30)
[2019-01-10 20:32] LABS: Lyme Ab IgG w/WB Rflx Positive (Negative)
[2019-01-10] MEDS: SODIUM CHLORIDE 0.9% 500 ML IV SCH (20:48)
[2019-01-10 21:16] LABS: Influenza A virus by PCR Neg for Influ A (Neg); Influenza B virus by PCR Neg for Influ B (Neg)
[2019-01-10] MEDS: MAGNESIUM SULFATE / D5W 1 GM/100 ML BAG IV SCH ×2 (21:27→22:20)
[2019-01-11] MEDS: SODIUM CHLORIDE 0.9% 500 ML IV SCH (01:24)
[2019-01-11] MEDS: SODIUM CHLORIDE 0.9% 1000ML 1,000 ML IV SCH ×2 (05:27→10:58)
[2019-01-11 06:21] LABS: Basophils # (auto) 0.01 K/uL (0-0.2); Basophils % (auto) 0.1 %; Eosinophils # (auto) 0.06 K/uL (0-0.5); Eosinophils % (auto) 0.6 %; Hematocrit (blood only) 36.2 % (42-52); Hemoglobin 13.3 g/dL (14.0-18.0); Immature Granulocytes # (auto) 0.02 K/uL (0.00-0.02); Immature Granulocytes % (auto) 0.2 %; Lymphocytes # (auto) 1.44 K/uL (1.2-3.4); Lymphocytes % (auto) 14.5 %; Mean Corpuscular Hgb Conc 36.7 g/dL (32-36); Mean Corpuscular Volume 79.6 fL (80-100); Mean Platelet Volume 10.4 fL (7.4-10.4); Monocytes # (auto) 1.45 K/uL (0.11-0.59); Monocytes % (auto) 14.6 %; Neutrophils # (auto) 6.95 K/uL (1.4-6.5); Platelet Count 107 K/uL (130-400); RDW Coefficient of Variation 14.1 % (11.5-14.5); RDW Standard Deviation 40.1 fL (36.4-46.3); Red Blood Count 4.55 M/uL (4.7-6.1); White Blood Count 9.93 K/uL (4.8-10.8)
[2019-01-11 07:04] LABS: Albumin Level 3.4 gm/dl (3.4-5.0); BUN Creatinine Ratio 13.5 (10-20); Calcium 8.2 mg/dl (8.5-10.1); Creatinine Clr Calc Pharmacy 82.2 ml/min; Est GFR (African American) 68.5; Est GFR (Non-African American) 59.1; Magnesium 2.5 mg/dl (1.8-2.4); Potassium 3.5 mmol/L (3.5-5.1)
[2019-01-11 07:11] LABS: Bilirubin,Total 6.2 mg/dl (0.2-1); Globulin 3.4 gm/dl (2.5-4.0); Total Protein 6.8 gm/dl (6.4-8.2)
[2019-01-11] MEDS: TACROLIMUS 1 MG CAP PO SCH (08:37)
--- NOTE | 2019-01-11 15:03 | Discharge Summary ---
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 Sx started approx 9am. Developed body aches, myalgias, sweats, feverish, headache, right sided chest pain. Sx developed abruptly. R chest wall discomfort was non radiating, located R lateral chest wall, worse with inspiration, nothing made better. Appetite is normal. He denies chills, dizziness, lightheaded, sob, palpitations, n/v/d, abdominal pain, dysuria, hematuria, increased urg/freq with urination. Mother is at bedside. States no sick contacts, "we don't let him leave the house much." No recent travel or insect bites. While in ED pt received IVF and chest discomfort resolved with IV toradol. According to SEAN Singletary in ED right chest wall discomfort was lateral and reproducible, again relieved with toradol. Principal Diagnosis Fever chills/possible viral etiology/status post liver transplant/on immunosuppressant Discharge Exam GENERAL: No sign of distress, HEENT: icteric sclera , pink-purple bilateral equal reactive to light extraocular muscle intact Normal oral mucosa, neck: No JVD, no thyromegaly, trachea midline Lungs: Clear to auscultate, no wheeze or rales Cardiovascular: Regular S1 and S2, no murmur or gallop, no JVD, no lower extremity edema Abdomen: Soft, nontender, bowel sounds active, no hepatosplenomegaly Extremities: No rash or deformity, normal joint, Neuro: No focal neurological deficit, no dysarthria, no facial droop Psych: Alert awake oriented x3: Euthymic Skin: No rash LYMPH NODES: No cervical lymphadenopathy Discharge Data Allergies Allergy/AdvReac Type Severity Reaction Status Date / Time albuterol Allergy Mild HIVES Verified 01/10/19 15:30 Consultations 01/10/19 18:24 ED Decision to Admit Stat Ordered Studies 01/10/19 16:31 CT abd pelvis IV con only Stat CT angio chest PE protocol Stat Hospital Course (1) SIRS (systemic inflammatory response syndrome): Symptom has resolved completely, Afebrile, denies of any headache, no nausea vomiting no shortness of breath No complaint of body ache, no chest pain denies of any discomfort Heart rate stable, leukocytosis has resolved Patient is very eager to be discharged home 01/10/2019 This is a 28 year old male with significant pmh of Liver transplant x 2 secondary to rejection, chronic immunosuppression, alpha 1 antitrypsin def, HTN , gout who presents to [facility] secondary to fever, malaise, weakness, right sided chest pain x 1 day. Sx started approx 9am. Developed body aches, myalgias, sweats, feverish, headache, right sided chest pain. Pt met SIRS critera on admission febrile 39.3, tachycardic at 115, WBC 12.6k other notable abnormalities Na 134, Cr 1.47, PLT 119, INR 1.2, Tbili 5.8, Direct 0.5, AST 44, ALT 82, Mag 1.4 Source of infection: Unknown, CXR negative, flu negative, possible viral etiology : clinical symptom resolved after 24 hrs of IV hydration , supportive care CT chest with contrast shows no evidence of PE Serology: IgG positive, Lyme IgG M negative Western blot pending Discussed with ID Dr. Kay Isolated IgG positive could be false positive versus remote exposure to tick bites Active infection highly unlikely Patient will be discharged home with 7 days of p.o. doxycycline( pt given IV Rocephin on admission ) he will follow with family physician, for confirmatory test, Western blot result (2) Acute renal failure superimposed on stage 3 chronic kidney disease: baseline CKD with Cr 1.4-1.5 presented with worsening cr /acute renal failure due to Poor PO intake / dehydration renal function improved with IV hydration out pt follow up for lab work : BMP in a week pt is counselled to avoid NSAID's (3) Hx of liver transplant: -on prograf -hx of liver failure secondary to alpha-1 antitrypsin complicated by acute liver transplant rejection requiring repeat transplantation -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 Micronodular contour of the liver could suggest underlying fibrosis/ cirrhosis. Reportedly the patient is status post liver transplant. Patent hepatic vasculature. 2. Stable to slightly progressed biliary ductal dilatation in segment 8 and 5 likely relates biliary injury/necrosis in the immediate perioperative setting and chronic sequelae. 3. Portal hypertension with splenomegaly. 4. Circumferential bladder wall thickening could suggest cystitis. Correlate with urinalysis. 5. Questionable diffuse osseous sclerosis. Correlate for possible underlying osteodystrophy. -notable lab abnormalities include thrombocytopenia (? if chronic vs acute inflammatory resp), elevated bili/indirect bili -monitor lft if continue to worsen would recommend GI involvement (4) Immunocompromised state: -on prograf, Prograf level ordered, reference lab, result pending (5) Hypomagnesemia: -Corrected (6) HTN (hypertension): -BP elevated SBP 160-150 /DBP 90-100 pt was supposed to take Labetalol 200 mg BID has not been taking it will resume at a lower dose 100 mg BID follow up with family physician for further management (7) [id number] deficiency: (8) DVT prophylaxis: -encourage ambulation Disposition: Will be discharged home today Follow up: Follow-up with only physician Dr. Baron in a week need to establish continued follow-up care with radiological technologist,/will ask Dr. Baron's office will arrange Total Time Total Time Spent Total Time Spent (In Minutes): Approximate 35 minutes Total Time Includes: Discharge Planning and Medication Reconciliation Discharge Plan Discharge Items Patient Disposition: Home - Self-Care Reason For Visit: SIRS Discharge Diagnosis: FEVER /CHILLS /POSSIBLE VIRAL ILLNESS HX OF LIVER TRANSPLANT ON IMMUNOSUPPRESIVE THERAPY Condition: Good Discharge Goals: Decrease discomfort and Diagnostic testing Activity: Resume your previous activity Non-emergency contact: Primary Care Provider Call non-emergency contact if: you have any medication questions Follow-up/Referrals: Deondre Baron MD [Primary Care Provider] - Elmer Angeles M.D. [Hospitalist] - Diet: Regular Other Ambulatory Orders: Basic Metabolic Panel (Routine) Timeframe: 1 Week Location: Determined by Patient Ordered By: Shelly Hickey Provider Instructions: NEED TO FOLLOW UP WITH INDUSTRIAL RELATIONS ANALYST DR ELMER ANGELES FOR CONTINUED CARE PLEASE GET REFERRAL FROM DR [facility] FOLLOW UP WITH DR BARON IN A WEEK , OFFICE WILL CALL YOU WITH APPOINTMENT BLOOD WORK : BASIC METABOLIC PANEL IN A WEEK/AT CLINIC VISIT DO NOT TAKE ALEVE, MOTRIN , ADVIL, IBUPROPHEN , NAPROXEN WILL CAUSE FURTHER DAMAGE TO YOUR KIDNEYS PLEASE DRINK PLENTY OF FLUID ONE OF YOU LAB TEST IS POSITIVE FOR LYME -SUGGESTIVE OF REMOTE EXPOSURE CONFIRMATORY TEST RESULTS ARE STILL PENDING WILL BE SENT TO DR BARON TO REVIEW WHEN AVAILABLE COMPLETE ANTIBIOTIC COURSE PLEASE CALL YOUR DOCTOR OR RETURN TO ER WITH ANY RECURRENCE OF SYMPTOM -FEVER / CHILLS /HEADACHE /BODY ACHE Prescriptions: New doxycycline hyclate 100 mg capsule 100 mg PO BID 7 Days Qty: 14 RF: 0 labetalol 100 mg tablet 100 mg PO BID 30 Days Qty: 60 RF: 0 Continue tacrolimus [Prograf] 1 mg Capsule 2 mg PO Q12H RF: 0 Stand-Alone Forms: [facility] Discharge Orders: Discharge Order (Routine); Ordered 01/11/19 Ordered By: Shelly Gallegos Admission Data Admit Date/Time: 01/10/19 18:53 Attending Provider: Shelly Gallegos Admit Provider: Jayson Villagran Primary Care Provider: Deondre Baron Other Providers: Jayson Villagran Service: Telemetry Other Interventions: Discharge Summary Assessment (RN) Last Done: 01/11/19 14:43
[2019-01-11] MEDS ORDERED: LABETALOL HCL 100 MG TAB PO ONE (15:30)
--- NOTE | 2019-01-11 17:42 | Hospitalist Progress Note ---
Date of Service January 11, 2019 Subjective Patient was discharged this afternoon, Received call from micro lab: Both of the blood cultures bottle: Sample drawn on 01/10/2019 Growing gram-positive cocci: Sensitivity isolation pending Discussed with ID Dr. Mc Patient needs to be treated with broad-spectrum IV antibiotics right away Called patient home Spoke with Mr. Rodney quick he and his cell Updated regarding positive blood culture/need to return to hospital for IV antibiotics Admissions is called already for medical surgical bed Patient will be coming as direct admit, does not need to go to the ER(vitals were stable during discharge earlier today) Patient is agreeable to come tonight Called patient's mother Marsha Capellan Updated regarding the positive blood culture, and importance for Rodney to return back to hospital for IV antibiotics Without adequate and timely treatment infection can lead to sepsis, , especially in his immunocompromised status Patient and patient's mother both verbalized understanding Will be coming to [facility] soon Gave my cell phone number to patient and patient's mother: 2 let me know when they are on their way, I will be able to update them regarding the room number if available Plan of CARE: Gram-positive bacteremia: in a immunocompromise pt Patient will be admitted to medical surgical floor as a direct admit/admission updated already Accepting physician: Shelly Gallegos Patient will be started with broad-spectrum antibiotic IV Zosyn, vancomycin Repeat blood cultures will be obtained . Blood work CBC, basic metabolic panel, liver function test, lactic acid pro calcitonin Infectious disease: Dr. Kay will be consulted, case already discussed with Dr. Jesusita Gallegos MD Physical Exam 2 Vital Signs (Past 24 Hours): Last Vital Signs Temp 36.1 C L 01/11/19 15:02 Pulse 79 01/11/19 15:02 Resp 18 01/11/19 15:02 BP 146/116 H 01/11/19 15:02 Pulse Ox 98 01/11/19 15:02
[2019-01-14 14:17] LABS: CMV IgM Antibody <30.00 Au/mL; Epstein Barr Virus Early Ag Ab >150.00 U/ML
[2019-01-14 17:42] LABS: 18KDIGG Band NONREACTIVE (NONREACTIVE); 23KDIGG Band NONREACTIVE (NONREACTIVE); 23KDIGM Band NONREACTIVE (NONREACTIVE); 28KDIGG Band NONREACTIVE (NONREACTIVE); 30KDIGG Band NONREACTIVE (NONREACTIVE); 39KDIGG Band NONREACTIVE (NONREACTIVE); 39KDIGM Band NONREACTIVE (NONREACTIVE); 41KDIGG Band REACTIVE (NONREACTIVE); 41KDIGM Band NONREACTIVE (NONREACTIVE); 45KDIGG Band REACTIVE (NONREACTIVE); 58KDIGG Band REACTIVE (NONREACTIVE); 66KDIGG Band REACTIVE (NONREACTIVE); 93KDIGG Band NONREACTIVE (NONREACTIVE); Lyme Antibodies, WB IgG NEGATIVE (NEGATIVE); Lyme Antibodies, WB IgM NEGATIVE (NEGATIVE)
== END 2019-01-11 16:40 | disposition home or self-care (01) | DRG 683 ==
LOC: ED 14:12 → 2E 18:53

== ENCOUNTER 2019-01-11 18:18 | Inpatient (IN) ==
[2019-01-11] MEDS ORDERED: VANCOMYCIN CONSULT ACTIVE PRN (19:14)
[2019-01-11] MEDS ORDERED: PIPERACILL/TAZOBAC CONSULT ACTIVE PRN (19:14)
[2019-01-11] MEDS ORDERED: PIPERACILLIN/TAZOBACTAM 3.375 GM in DEXTROSE 5% 100 ML IV SCH (19:15)
--- NOTE | 2019-01-11 19:19 | History & Physical Report ---
Date of Service January 11, 2019 Assessment & Plan (1) Gram-positive cocci bacteremia: Blood cultures X2 Gram positive cocci 01/10/19 iV Abx with Rocephin /Vanco IVF repeat Blood culture repeat Labs : CBC , LFT , BMP , Lactic acid , Pro calcitonin ID eval requested case d/w Dr Mc Transthoracic ECHO will need MALCOLM if persistent bacteremia while on IV Abx at present pt is comfortable , afebrile denies of any chest pain or SOB cont to monitor Present on Admission?: Yes (2) Acute renal failure superimposed on stage 3 chronic kidney disease: cont IVF follow PRP Avoid contrast studies if possible no NSAID's Present on Admission?: Yes (3) HTN (hypertension): ordered Labetalol PO pt has not been taking his meds for some tome (4) Hx of liver transplant: on Tacrolimus -continued normal LFT with elevated bilirubin CT abdomen /pelvis -comments biliary dilatation USG of liver GI eval requested repeat labs in AM Present on Admission?: Yes (5) Immunocompromised state: s/p renal transplant X2 due to alpha 1 antitrypsin deficiency on Tacrolimus FULL CODE DVT PROPHYLAXIS low risk scd and teds ambulate DIPOSITION : expected to be discharged home when medically stable Pt's parents present at bedside -updated History of Present Illness Chief Complaint: 28-year-old male history of alpha 1 anti-trypsin deficiency, status post liver transplant x2, CKD stage III, hypertensionwas [facility] afternoon: Patient was admitted yesterday 01/10/2019 with complaint of fever chills headache , generalized body ache for 3-4 hours, On admission patient was febrile, tachycardic, had mild leukocytosis, UA was negative, chest x-ray had no infiltrate CT abdomen pelvis did not show any evidence of active pathology This morning patient was afebrile, had normal white count, normal LFTs, with elevated bilirubin~6(bilirubin was 5 on admission yesterday) Patient lab work/serology was positive for Lyme IgGLyme IgM negative, Western blot was pending Influenza negative Patient requested to be discharged home since early in the morning, stating he feels well After discussing with infectious disease Dr. Mc regarding the Lyme serology it was thought possible false positive versus prior exposure, patient's presenting symptoms does not correlate with active Lyme disease Patient was discharged home, with close follow-up with family physician and gastroenterology Patient left hospital relies at 3:30 PM Received call from lab around 5 PM: Patient's 2 sets of blood culture drawn on on arrival to ER: Growing gram-positive cocci Patient was called at home: Asked to return back to hospital, will need IV antibiotic treatment admission called : Patient was directly admitted to room 455 ID evaluation requested: Case discussed with Dr. Mc: Patient will be started with IV antibiotic Vanco and Rocephin Repeat blood cultures ordered We will order transthoracic echo , if repeat blood culture continues to be positive positive for bacteria Will need transesophageal echo for evaluation of endocarditis Primary Care Provider: Deondre Zavala MD Allergies Allergy/AdvReac Type Severity Reaction Status Date / Time albuterol Allergy Mild HIVES Verified 01/10/19 15:30 Home Medications Home Medications Medication Instructions Recorded Confirmed Type tacrolimus [Prograf] 2 mg PO Q12H 01/10/19 01/10/19 History doxycycline hyclate 100 mg PO BID 7 Days #14 cap 01/11/19 Rx labetalol 100 mg PO BID 30 Days #60 tab 01/11/19 Rx Past Med/Surg History Family History Other No family history of disorders Social History marital status: Single Current Living Situation: Family Feels Safe at Home: Yes Smoking Status: Never smoker Second Hand Exposure: No Hx Alcohol Use: No Hx Substance Use: No Beliefs That Will Affect Care: None Preferred Language: Turkish Physical Exam 2 Vital Signs (Past 24 Hours): GENERAL: No sign of distress, HEENT: mildy icteric sclera , pink-purple bilateral equal reactive to light extraocular muscle intact Normal oral mucosa, neck: No JVD, no thyromegaly, trachea midline Lungs: Clear to auscultate, no wheeze or rales Cardiovascular: Regular S1 and S2, no murmur or gallop, no JVD, no lower extremity edema Abdomen: Soft, nontender, bowel sounds active, no hepatosplenomegaly Extremities: No rash or deformity, normal joint, Neuro: No focal neurological deficit, no dysarthria, no facial droop Psych: Alert awake oriented x3: Euthymic Skin: No rash LYMPH NODES: No cervical lymphadenopathy Results & Data Diagnostic Findings CT ABDOMEN /PELVIS : 01/10/19 : IMPRESSION: 1. Micronodular contour of the liver could suggest underlying fibrosis/ cirrhosis. Reportedly the patient is status post liver transplant. Patent hepatic vasculature. 2. Stable to slightly progressed biliary ductal dilatation in segment 8 and 5 likely relates biliary injury/necrosis in the immediate perioperative setting and chronic sequelae. 3. Portal hypertension with splenomegaly. 4. Circumferential bladder wall thickening could suggest cystitis. Correlate with urinalysis. 5. Questionable diffuse osseous sclerosis. Correlate for possible underlying osteodystrophy. _ (1) Acute renal failure superimposed on stage 3 chronic kidney disease Acute renal failure type: unspecified Qualified Code(s): N17.9 - Acute kidney failure, unspecified; N18.3 - Chronic kidney disease, stage 3 (moderate) (2) HTN (hypertension) Hypertension type: unspecified Qualified Code(s): I10 - Essential (primary) hypertension
[2019-01-11] MEDS ORDERED: PATIENT'S HEIGHT AND/OR WEIGHT NEEDED SCH (19:45)
[2019-01-11 20:50] LABS: Eosinophils # (auto) 0.03 K/uL (0-0.5); Eosinophils % (auto) 0.4 %; Hematocrit (blood only) 38.4 % (42-52); Hemoglobin 13.9 g/dL (14.0-18.0); Immature Granulocytes # (auto) 0.01 K/uL (0.00-0.02); Immature Granulocytes % (auto) 0.1 %; Lymphocytes # (auto) 0.66 K/uL (1.2-3.4); Mean Platelet Volume 10.5 fL (7.4-10.4); Monocytes # (auto) 0.56 K/uL (0.11-0.59); Monocytes % (auto) 7.6 %; Neutrophils # (auto) 6.11 K/uL (1.4-6.5); Neutrophils % (auto) 82.9 %; Platelet Count 104 K/uL (130-400); RDW Coefficient of Variation 14.1 % (11.5-14.5); White Blood Count 7.37 K/uL (4.8-10.8)
[2019-01-11 20:52] LABS: Mean Corpuscular Hgb Conc 36.2 g/dL (32-36)
[2019-01-11] MEDS ORDERED: VANCOMYCIN HCL 1,000 MG in SODIUM CHLORIDE 0.9% 250 ML IV SCH (21:00)
[2019-01-11] MEDS ORDERED: VANCOMYCIN HCL 2,500 MG in SODIUM CHLORIDE 0.9% 500 ML IV ONE (21:00)
[2019-01-11 21:07] LABS: Albumin Level 3.8 gm/dl (3.4-5.0); BUN Creatinine Ratio 15.5 (10-20); Bilirubin Direct 0.4 mg/dl (0-0.2); Calcium 8.8 mg/dl (8.5-10.1); Est GFR (African American) 83.7; Est GFR (Non-African American) 72.2; Potassium 3.6 mmol/L (3.5-5.1)
[2019-01-11] MEDS ORDERED: ACETAMINOPHEN 325 MG TAB PO PRN (21:14)
[2019-01-11] MEDS ORDERED: ONDANSETRON INJ 2 MG/ML 2 ML VIAL IV PRN (21:14)
[2019-01-11 21:36] LABS: Albumin Globulin Ratio 0.9 (0.9-2); Bilirubin,Total 3.4 mg/dl (0.2-1); Globulin 4.1 gm/dl (2.5-4.0); Total Protein 7.9 gm/dl (6.4-8.2)
[2019-01-11] MEDS: NORMOSOL-R 1,000 ML IV SCH (21:46)
[2019-01-11] MEDS: LABETALOL HCL 100 MG TAB PO SCH (21:50)
[2019-01-11] MEDS: TACROLIMUS 1 MG CAP PO SCH (21:51)
[2019-01-12] MEDS: cefTRIAXone SODIUM 2,000 MG in DEXTROSE 5% 50 ML IV SCH (00:23)
[2019-01-12] MEDS: NORMOSOL-R 1,000 ML IV SCH ×2 (06:34→14:52)
--- NOTE | 2019-01-12 06:35 | Ultrasound Report ---
US liver CLINICAL HISTORY: 28 years-old Male presenting with elevated bilirubin/sp liver transplant . TECHNIQUE: Real-time grayscale and limited color Doppler ultrasound imaging of the abdomen limited to the right upper quadrant was performed. COMPARISON: CT from 01/10/2019. FINDINGS: Pancreas: Largely obscured due to overlying bowel gas. Liver: Normal echogenicity though there may be a mildly coarsened echotexture. The liver measures 17. 4 cm in maximal sagittal dimension. No sonographic evidence of hepatic mass. Main portal vein patent with normal directional flow. Biliary: Intrahepatic biliary ductal dilatation as evident on CT. Hyperechogenicity and shadowing wit hin the bile ducts consistent with pneumobilia. Common bile duct measures up to 9 mm in diameter. Gallbladder: Surgically absent. Right kidney: Normal in appearance without evidence of hydronephrosis. Ascites: None. Other: None. IMPRESSION: 1. Mildly coarsened liver parenchyma, nonspecific. 2. Intrahepatic ductal or ductal dilatation and pneumobilia as evident on CT. 3. Patent portal vein. Electronically signed by: Hernando Stallings M.D. 01/12/2019 6:33 AM
[2019-01-12] MEDS: TACROLIMUS 1 MG CAP PO SCH ×2 (07:25→21:04)
[2019-01-12] MEDS: LABETALOL HCL 100 MG TAB PO SCH ×2 (07:25→21:03)
[2019-01-12] MEDS ORDERED: VANCOMYCIN HCL 1,500 MG in SODIUM CHLORIDE 0.9% 500 ML IV SCH (09:00)
[2019-01-12 09:38] LABS: Creatinine Clr Calc Pharmacy 114.1 ml/min
--- NOTE | 2019-01-12 09:44 | History & Physical Report ---
Date of Service January 12, 2019 History of Present Illness Chief Complaint: Post liver transplant Primary Care Provider: Deondre Zavala MD 28 yo male with a history of reported a1at, s/p cadaveric liver transplant (not sure where/when) on prograf admitted 2 days ago (01/10/19) with malaise. Workup showed gram + cocci in blood cultures. He was noted to have an elevate bilirubin. Abd cherrie now shows coarsened liver, cbd of 9 mm in the setting of prior cholecystectomy. No complaints at this time of fevers, chills, belly pain, jaundice, vomiting. He wants to go home he says. Allergies Allergy/AdvReac Type Severity Reaction Status Date / Time albuterol Allergy Mild HIVES Verified 01/10/19 15:30 Home Medications Home Medications Medication Instructions Recorded Confirmed Type tacrolimus [Prograf] 2 mg PO Q12H 01/10/19 01/11/19 History doxycycline hyclate 100 mg PO BID 7 Days #14 cap 01/11/19 01/11/19 Rx labetalol 100 mg PO BID 30 Days #60 tab 01/11/19 01/11/19 Rx Past Med/Surg History Family History Other No family history of disorders Social History marital status: Single Current Living Situation: Family Other Information That Helps Us Care for You: No Feels Safe at Home: Yes Safety Concerns: Feels Safe At This Time Smoking Status: Never smoker Do You Dip or Chew Tobacco: No Second Hand Exposure: No Tobacco Cessation Education Requested by Patient: No Hx Alcohol Use: No Hx Substance Use: No Beliefs That Will Affect Care: None Preferred Language: Cypriot Communication Ability: Effective [employer] Required: No Review of Systems All systems reviewed & are unremarkable except as noted in HPI & below Physical Exam 2 Vital Signs (Past 24 Hours): Last Vital Signs Temp 36.9 C 01/12/19 08:00 Pulse 90 01/12/19 08:00 Resp 20 01/12/19 08:00 BP 144/92 H 01/12/19 08:00 Pulse Ox 97 01/12/19 08:00 Physical Exam: NAD Eyes: PERRL, conjunctivae normal, anicteric sclerae Respiratory: normal respiratory effort, lungs clear to auscultation Cardiovascular: RRR, no murmur, no edema Gastrointestinal (Abdomen): Liver transplant abdomen Results & Data Laboratory Results Reviewed Abdominal ultrasound reviewed Supervising Physician Co-Signing Physician Notes 28 yo male with a history of a1at s/p liver transplant on prograf. Admitted 2 days ago with malaise, found to have a gram + cocci bacteremia on treatment. Abd cherrie showing ? cirrhosis of the transplant liver, cbd of 9 mm in the setting of cholecystectomy. bilirubin down trending. Bili elevation could have been from infection if truly cirrhotic. Would check prograf level. Ok to follow him as an outpatient at [place]. Once bacteremia is improved, ok from a GI standpoint to [place] home on same prograf dosing if prograf level within normal limits (ideally 8-10 with normal kidney function, 5-8 if impaired renal function)
[2019-01-12 12:00] LABS: Hematocrit (blood only) 34.3 % (42-52); Hemoglobin 12.1 g/dL (14.0-18.0); Mean Corpuscular Hgb Conc 35.3 g/dL (32-36); Mean Corpuscular Volume 80.1 fL (80-100); RDW Coefficient of Variation 14.3 % (11.5-14.5); RDW Standard Deviation 41.4 fL (36.4-46.3); Red Blood Count 4.28 M/uL (4.7-6.1); White Blood Count 3.88 K/uL (4.8-10.8)
--- NOTE | 2019-01-12 12:18 | Hospitalist Progress Note ---
Date of Service January 12, 2019 Assessment & Plan (1) Gram-positive cocci bacteremia: Blood cultures X2 Gram positive cocci 01/10/19 iV Abx with Rocephin /Vanco repeat Blood culture ordered 01/11/2019 Report pending Lactic acid level was elevated on admission, normalized with IV fluid Pro-calcitonin remains elevated ID eval requested Appreciate input, continue broad-spectrum antibiotic until culture report available Ordered transthoracic ECHO -for evaluation of possible endocarditis will need MALCOLM if persistent bacteremia while on IV Abx (2) Acute renal failure superimposed on stage 3 chronic kidney disease: Resolved, creatinine at baseline She has normal appetite, IV fluids discontinued follow PRP Avoid contrast studies if possible no NSAID's (3) HTN (hypertension): Continue labetalol 100 mg p.o. twice daily (4) Hx of liver transplant: on Tacrolimus -continued normal LFT with elevated bilirubin CT abdomen /pelvis -comments biliary dilatation USG of liver IMPRESSION: 1. Mildly coarsened liver parenchyma, nonspecific. 2. Intrahepatic ductal or ductal dilatation and pneumobilia as evident on CT. 3. Patent portal vein. GI eval requested - Appreciate input, [place] will need outpatient follow-up with gastroenterology (5) Immunocompromised state: s/p renal transplant X2 due to alpha 1 antitrypsin deficiency on Tacrolimus FULL CODE DVT PROPHYLAXIS low risk scd and teds ambulate DIPOSITION : expected to be discharged home when medically stable Pt's parents present at bedside -updated Subjective Feels fine, , no shortness of breath, no nausea vomiting, no abdominal pain or discomfort Appetite fair No fever or chills Bleeding independently in room Physical Exam 2 Vital Signs (Past 24 Hours): Last Vital Signs Temp 36.9 C 01/12/19 08:00 Pulse 90 01/12/19 08:00 Resp 20 01/12/19 08:00 BP 144/92 H 01/12/19 08:00 Pulse Ox 97 01/12/19 08:00 Physical Exam: GENERAL: No sign of distress, HEENT: Sclera nonicteric, pink-purple bilateral equal reactive to light extraocular muscle intact Normal oral mucosa, neck: No JVD, no thyromegaly, trachea midline Lungs: Clear to auscultate, no wheeze or rales Cardiovascular: Regular S1 and S2, no murmur or gallop, no JVD, no lower extremity edema Abdomen: Soft, nontender, bowel sounds active, no hepatosplenomegaly Extremities: No rash or deformity, normal joint, Neuro: No focal neurological deficit, no dysarthria, no facial droop Psych: Alert awake oriented x3: Euthymic Skin: No rash LYMPH NODES: No cervical lymphadenopathy Eyes: PERRL, conjunctivae normal, anicteric sclerae Respiratory: normal respiratory effort, lungs clear to auscultation Cardiovascular: RRR, no murmur, no edema _ (1) Acute renal failure superimposed on stage 3 chronic kidney disease Acute renal failure type: unspecified Qualified Code(s): N17.9 - Acute kidney failure, unspecified; N18.3 - Chronic kidney disease, stage 3 (moderate) (2) HTN (hypertension) Hypertension type: unspecified Qualified Code(s): I10 - Essential (primary) hypertension
[2019-01-12 12:20] LABS: Mean Platelet Volume 10.2 fL (7.4-10.4); Platelet Count 88 K/uL (130-400)
[2019-01-12 12:21] LABS: Platelet Estimate Decreased (Normal)
[2019-01-12 12:32] LABS: Albumin Level 3.2 gm/dl (3.4-5.0); Bilirubin Direct 0.4 mg/dl (0-0.2); Bilirubin,Total 1.8 mg/dl (0.2-1); Total Protein 6.9 gm/dl (6.4-8.2)
--- NOTE | 2019-01-12 13:59 | Infectious Disease Consult ---
Date of Consultation January 12, 2019 Assessment & Plan (1) Streptococcal bacteremia: 28-year-old male status post liver transplant on immunosuppressive therapy now with streptococcal bacteremia. Patient appears to have responded clinically to first dose of ceftriaxone. Will need to evaluate for possibility of endocarditis and echocardiogram has been ordered. Will continue patient on ceftriaxone, vancomycin has been discontinued. Will likely need a course of IV antibiotics at home, with length to be determined after above workup available. Await follow-up blood cultures to ensure clearance of bacteremia. Will follow. History of Present Illness Reason for Consultation: Gram-positive bacteremia Attending Physician: Gonzalez Swann MD History of Present Illness 28-year-old male with history of liver transplant x2 on immunosuppressive therapy who was in usual state of health until several days ago when he noted onset of fever, chills, and generalized myalgias and arthralgias, headache and right-sided chest pain. He was admitted to the hospital briefly, given 1 dose of ceftriaxone and was discharged home after resolution of fever and other symptoms. Screening Lyme serology was positive for IgG antibodies, negative IgM , but discussed this with hospitalist and treatment was deferred until Western blot assay available. Yesterday, blood cultures became positive for gram- positive cocci and patient was called and returned for readmission. He has been started as discussed on vancomycin and ceftriaxone. Blood cultures are still pending, but Gram stain consistent with streptococcal species and growth appears most consistent with a viridans strep. Follow-up blood cultures are pending. Patient continues to feel well and is afebrile. White count is normal. Allergies Allergy/AdvReac Type Severity Reaction Status Date / Time albuterol Allergy Mild HIVES Verified 01/10/19 15:30 Home Medications Home Medications Medication Instructions Recorded Confirmed Type tacrolimus [Prograf] 2 mg PO Q12H 01/10/19 01/11/19 History doxycycline hyclate 100 mg PO BID 7 Days #14 cap 01/11/19 01/11/19 Rx labetalol 100 mg PO BID 30 Days #60 tab 01/11/19 01/11/19 Rx Patient History Medical History Hx of liver transplant Per Dr. 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 He has had mild chronic rejection as late at 2008. At that time, per Dr. 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 Tang' s pediatric GI follow up. 02/09/13 admission for acute liver failure insufficiency, sudden onset with fever, fatigue: 02/10/13 liver bx showed Acute cholangitis 02/13/13 cholangiogram Imaging demonstrated a severe stricture at the biliary /bowel anastomotic site. There was moderate to severe biliary ducts dilatation on the cholangiogram. The anastomotic stenosis was negotiated and an internal external biliary drain was placed in appropriate position 02/20/13 cholangiogram IMAGING FINDINGS: Initial images from the existing biliary catheter demonstrated the catheter with the pigtail loop in satisfactory position. Cholangiogram demonstrated mild biliary ductal dilatation with contrast flow noted in the bowel. A new 8 Iranian biliary catheter was placed and the pigtail loop was appropriately formed in the bowel loop and the catheter sideholes were appropriately placed proximal to the biliary obstruction for adequate drainage. Mid 03-01, saw Dr. Lindo in clinic today, the patient had the biliary tube capped for 2 weeks with no symptoms. He was seen by transplant surgery on 03-11-13, got admitted to [facility] from 03-13-13 to 03-19-13 for disseminated varicella. He underwent CHOLANGIOGRAM BALLOON DILATATION AND CONVERSION OF EXT BILIARY DRAINAGE TO I/E BILIARY CATHETER on 03-24 by IR. He is taking prograf 2mg in AM and 3 mg in PM. Pt had cholangiogram on 04-22-13 that showed PERSISTENT MODERATEY SEVERE CHOLEDOCHO-ENTERIC ANASTOMOTIC STRICTURE. UPSIZED EXISTING 10-FR BILIARY DRAIN TO 12-FR INTERNAL EXTERNAL BILIARY DRAIN--> TUBE LEFT CAPPED Pt was scheduled for I/E biliary catheter exchange and upsizing to 14 Fr on 08-27-13. Last time Rt biliary catheter was changed on 10-21-13, there was a brisk flow of contrast through the catheter. Finally, pt's I/E biliary catheter was pulled out on 12-19-13. Review of labs show that T.bili is down to 2.6, FK levels (05-26-14): 4.2, Cr increased to 1.6 on tacrolimus 2 mg qam, 3 mg q pm. Immunocompromised state History of gout (Chronic) [id number] deficiency (Resolved 02/09/13) Immunosuppressive therapy (Chronic 02/09/13) Liver transplant rejection (Resolved 02/09/13) Surgical History History of tonsillectomy and adenoidectomy History of tympanoplasty Family History Other No family history of disorders Social History marital status: Single Current Living Situation: Family Other Information That Helps Us Care for You: No Feels Safe at Home: Yes Safety Concerns: Feels Safe At This Time Smoking Status: Never smoker Do You Dip or Chew Tobacco: No Second Hand Exposure: No Tobacco Cessation Education Requested by Patient: No Hx Alcohol Use: No Hx Substance Use: No Beliefs That Will Affect Care: None Preferred Language: Croatian Communication Ability: Effective Bee Rancher Required: No Review of Systems All systems were reviewed and are negative except as per HPI Physical Exam 2 Vital Signs (Past 24 Hours): Last Vital Signs Temp 36.9 C 01/12/19 08:00 Pulse 90 01/12/19 08:00 Resp 20 01/12/19 08:00 BP 144/92 H 01/12/19 08:00 Pulse Ox 97 01/12/19 08:00 Constitutional: WD/WN, vitals as above comfortable; no acute distress Eyes: PERRL, conjunctivae normal, anicteric sclerae ENMT: external ear and nose normal, oropharynx normal Neck: trachea midline, no thyromegaly neck nontender Respiratory: normal respiratory effort, lungs clear to auscultation normal percussion; does not use accessory muscles Cardiovascular: Rate/Rhythm: regular rate and regular rhythm Heart Sounds: normal S1 and normal S2; no gallop, no murmur and no cardiac rub Vessels: normal peripheral pulses; no JVD Gastrointestinal (Abdomen): normal bowel sounds, soft, nontender, no hepatosplenomegaly Musculoskeletal: no cyanosis or clubbing, extremities motor strength 5/5 Spine: thoracic spine normal to inspection and lumbar spine normal to inspection ; no cervical spinal tenderness Skin: no rashes, warm and dry normal turgor; no lesions Neurologic: patellar DTR's 2+ bilat, sensation intact no focal motor deficits Psychiatric: A+Ox3, euthymic affect Orientation: cooperative Lymphatic: no cervical or axillary lymphadenopathy no inguinal lymphadenopathy Results & Data Laboratory Results Short CBC 01/11/19 01/12/19 Range/Units 20:28 11:44 WBC 7.37 3.88 L (4.8-10.8) K/uL Hgb 13.9 L 12.1 L (14.0-18.0) g/dL Hct 38.4 L 34.3 L (42-52) % Plt Count 104 L 88 L (130-400) K/uL BMP 01/11/19 01/12/19 20:21 08:59 Sodium 140 Potassium 3.6 Chloride 109 H Carbon Dioxide 24 BUN 21 H Creatinine 1.33 1.13 Glucose 136 H Calcium 8.8 Liver Function 01/11/19 01/12/19 Range/Units 20:21 11:44 Total Bilirubin 3.4 H 1.8 H (0.2-1) mg/dl Direct Bilirubin 0.4 H 0.4 H (0-0.2) mg/dl AST 23 14 L (15-37) U/L ALT 64 44 (12-78) U/L Alkaline Phosphatase 111 89 (45-117) U/L Albumin 3.8 3.2 L (3.4-5.0) gm/dl Diagnostic Findings Name: GUNNER MCCOY Acct: [id number] [place]: [place] : 1990 [facility] [place] Age: 28 Sex: M Dis Date: Loc: ICU Medical [address] [place] [address]/Bed: [facility] Spec: [id number] Collected: 01/10/19-1520 Received: 01/10/19-[address]: Max Singletary, PA-C Copy To: Jesus Horner , Deondre Miller MD(JETT) Source: Blood OV Order: Ordered: Blood Culture Comments: Comment Default is separate sites, same time Procedure Result Verified Site Blood Culture Preliminary 01/12/19-1026 Organism 1 Gram positive cocci Sens Sensitivities to Follow Phoned positive Blood Culture Gram Stain report to DR GONZALEZ SWANN on 01/11/19 at 1722 [place] [id number]. [place] [id number]. cc: ~ US liver CLINICAL HISTORY: 28 years-old Male presenting with elevated bilirubin/sp liver transplant . TECHNIQUE: Real-time grayscale and limited color Doppler ultrasound imaging of the abdomen limited to the right upper quadrant was performed. COMPARISON: CT from 01/10/2019. FINDINGS: Pancreas: Largely obscured due to overlying bowel gas. Liver: Normal echogenicity though there may be a mildly coarsened echotexture. The liver measures 17.4 cm in maximal sagittal dimension. No sonographic evidence of hepatic mass. Main portal vein patent with normal directional flow. Biliary: Intrahepatic biliary ductal dilatation as evident on CT. Hyperechogenicity and shadowing within the bile ducts consistent with pneumobilia. Common bile duct measures up to 9 mm in diameter. Gallbladder: Surgically absent. Right kidney: Normal in appearance without evidence of hydronephrosis. Ascites: None. Other: None. IMPRESSION: 1. Mildly coarsened liver parenchyma, nonspecific. 2. Intrahepatic ductal or ductal dilatation and pneumobilia as evident on CT. 3. Patent portal vein. Electronically signed by: Hernando Stallings M.D. 01/12/2019 6:33 AM Dictated: 01/12/19 0631 Transcribed: 01/12/19 0631
[2019-01-13] MEDS: cefTRIAXone SODIUM 2,000 MG in DEXTROSE 5% 50 ML IV SCH ×2 (00:21→23:07)
[2019-01-13 06:38] LABS: Albumin Level 3.5 gm/dl (3.4-5.0); BUN Creatinine Ratio 8.2 (10-20); Bilirubin Direct 0.3 mg/dl (0-0.2); Calcium 8.2 mg/dl (8.5-10.1); Creatinine Clr Calc Pharmacy 98.5 ml/min; Est GFR (African American) 85.3; Est GFR (Non-African American) 73.6; Potassium 3.3 mmol/L (3.5-5.1)
[2019-01-13 06:42] LABS: Albumin Globulin Ratio 0.9 (0.9-2); Bilirubin,Total 1.5 mg/dl (0.2-1); Total Protein 7.5 gm/dl (6.4-8.2)
[2019-01-13 07:35] LABS: Hematocrit (blood only) 35.9 % (42-52); Hemoglobin 12.9 g/dL (14.0-18.0); Mean Corpuscular Hgb Conc 35.9 g/dL (32-36); Mean Corpuscular Volume 79.1 fL (80-100); Mean Platelet Volume 10.7 fL (7.4-10.4); Platelet Count 103 K/uL (130-400); Red Blood Count 4.54 M/uL (4.7-6.1); White Blood Count 3.09 K/uL (4.8-10.8)
[2019-01-13] MEDS: LABETALOL HCL 100 MG TAB PO SCH ×2 (08:45→20:31)
[2019-01-13] MEDS: TACROLIMUS 1 MG CAP PO SCH ×2 (08:45→20:30)
[2019-01-13] MEDS ORDERED: POTASSIUM CHLORIDE 10 MEQ TABCR PO STA (10:37)
--- NOTE | 2019-01-13 12:34 | Gastroenterology Progress Note ---
Date of Service January 13, 2019 I have seen and examined the paient on 01/13/19 - agree with further plan of care as already documented by Kyle. Assessment & Plan (1) Streptococcal bacteremia: Apreciate ID management of bacteremia. Will await tacrolimus level result. Present on Admission?: Yes (2) Hx of liver transplant: F/u with hepatology. Our office will call to offer him an appt here in [place] hepatology clinic. Present on Admission?: Yes Subjective Mr. Rodney Aguirre is a 28 yr old male S/P liver transplant for alpha-1 antitrypsin deficiency on prograf who presented to the ED on 01/10 for fever, aches. Blood cultures positive for gram (-) cocci. Tx with ceftriaxone, vanco. WBC 12->3.8-> 3 today. T bili 1.8 yesterday. Pt feeling well. Ambulating in room. Conversational. fatigue, Aches have resolved. Tells me discharge is awaking arrangements for IV antibiotics at home. Physical Exam 2 Vital Signs (Past 24 Hours): Last Vital Signs Temp 36.7 C 01/13/19 08:07 Pulse 83 01/13/19 08:07 Resp 16 01/13/19 08:07 BP 150/93 H 01/13/19 08:07 Pulse Ox 97 01/13/19 08:07 Constitutional: WD/WN, vitals as above well developed and well nourished; no acute distress Eyes: PERRL, conjunctivae normal, anicteric sclerae ENMT: external ear and nose normal, oropharynx normal Neck: trachea midline, no thyromegaly Respiratory: normal respiratory effort, lungs clear to auscultation Cardiovascular: RRR, no murmur, no edema Gastrointestinal (Abdomen): normal bowel sounds, soft, nontender, no hepatosplenomegaly Skin: no rashes, warm and dry Neurologic: PERRL, EOMI, accommodation nl, no face palsy, no dysarthria Psychiatric: A+Ox3, euthymic affect Lymphatic: no cervical or axillary lymphadenopathy Results & Data Laboratory Results WBC 3., K 3.3, BUN 11, Cr 1.1. tacrolimus level pendingpending Diagnostic Findings Mildly coarsened liver parenchyma, nonspecific. 2. Intrahepatic ductal or ductal dilatation and pneumobilia as evident on CT. 3. Patent portal vein
--- NOTE | 2019-01-13 16:20 | Hospitalist Progress Note ---
Date of Service January 13, 2019 Assessment & Plan (1) Gram-positive cocci bacteremia: Blood cultures X2 Gram positive cocci 01/10/19 Alpha viridens streptococcus Abx adjusted to Rocephin only repeat Blood culture 01/11/2019: no grwoth ID eval requested Ordered transthoracic ECHO -for evaluation of possible endocarditis will need MALCOLM if persistent bacteremia while on IV Abx given positive blood culture , if there is no evidence of endocarditis may need 10-14 days of IV abx from the date of negative blood culture will D/w Dr Mc (2) Acute renal failure superimposed on stage 3 chronic kidney disease: Resolved, creatinine at baseline has normal appetite, IV fluids discontinued follow PRP Avoid contrast studies if possible no NSAID's (3) HTN (hypertension): BP remains elevated pt had been non complaint with BP meds in past was prescribed Labetalol 200 mg BID stopped taking for months initially started on labetalol 100 mg p.o. twice daily SBP remains elevated 150 BP meds titrated to 200 mg BID pt is counselled for medication compliance (4) Hx of liver transplant: on Tacrolimus -continued bilirubin level improved ( elevated level was possible due to acute illess/ dehydration _ normal LFt CT abdomen /pelvis -comments biliary dilatation USG of liver IMPRESSION: 1. Mildly coarsened liver parenchyma, nonspecific. 2. Intrahepatic ductal or ductal dilatation and pneumobilia as evident on CT. 3. Patent portal vein. GI eval requested - Appreciate input, no furthter test needed will need outpatient follow-up with gastroenterology (5) Immunocompromised state: s/p renal transplant X2 due to alpha 1 antitrypsin deficiency on Tacrolimus FULL CODE DVT PROPHYLAXIS low risk scd and teds ambulate DIPOSITION : expected to be discharged home when medically stable Subjective feel fine since admission no fever or chills no headache no abdominal pain or nausea Physical Exam 2 Vital Signs (Past 24 Hours): Last Vital Signs Temp 36.8 C 01/13/19 16:09 Pulse 85 01/13/19 16:09 Resp 18 01/13/19 16:09 BP 157/96 H 01/13/19 16:09 Pulse Ox 97 01/13/19 16:09 Eyes: PERRL, conjunctivae normal, anicteric sclerae Respiratory: normal respiratory effort, lungs clear to auscultation Cardiovascular: RRR, no murmur, no edema _ (1) Acute renal failure superimposed on stage 3 chronic kidney disease Acute renal failure type: unspecified Qualified Code(s): N17.9 - Acute kidney failure, unspecified; N18.3 - Chronic kidney disease, stage 3 (moderate) (2) HTN (hypertension) Hypertension type: unspecified Qualified Code(s): I10 - Essential (primary) hypertension
[2019-01-13] MEDS ORDERED: LABETALOL HCL 100 MG TAB PO ONE (17:21)
[2019-01-14 07:54] LABS: Hematocrit (blood only) 37.1 % (42-52); Mean Corpuscular Volume 79.3 fL (80-100); Mean Platelet Volume 10.8 fL (7.4-10.4); Nucleated RBC # (auto) 0.02 K/uL (0-0); Nucleated RBC % (auto) 0.4 %; Platelet Count 131 K/uL (130-400); RDW Coefficient of Variation 13.9 % (11.5-14.5); RDW Standard Deviation 39.8 fL (36.4-46.3); Red Blood Count 4.68 M/uL (4.7-6.1); White Blood Count 4.52 K/uL (4.8-10.8)
[2019-01-14] MEDS: TACROLIMUS 1 MG CAP PO SCH ×2 (08:22→20:40)
[2019-01-14] MEDS: LABETALOL HCL 100 MG TAB PO SCH ×2 (08:22→20:40)
[2019-01-14 08:26] LABS: Albumin Level 3.5 gm/dl (3.4-5.0); BUN Creatinine Ratio 8.9 (10-20); Bilirubin Direct 0.2 mg/dl (0-0.2); Calcium 8.6 mg/dl (8.5-10.1); Creatinine Clr Calc Pharmacy 113.1 ml/min; Est GFR (African American) 100.9; Potassium 3.4 mmol/L (3.5-5.1)
[2019-01-14 08:28] LABS: Albumin Globulin Ratio 0.9 (0.9-2); Bilirubin,Total 1.5 mg/dl (0.2-1); Globulin 3.8 gm/dl (2.5-4.0); Total Protein 7.3 gm/dl (6.4-8.2)
[2019-01-14] MEDS ORDERED: POTASSIUM CHLORIDE 20 MEQ TABCR PO STA (11:14)
[2019-01-14] MEDS ORDERED: AMLODIPINE BESYLATE 5 MG TAB PO ONE (16:26)
--- NOTE | 2019-01-14 16:27 | Infectious Disease Progress Nt ---
Date of Service January 14, 2019 Assessment & Plan (1) Streptococcal bacteremia: Patient with streptococcal bacteremia of unclear source, no evidence of endocarditis, follow-up blood cultures negative to be continued on ceftriaxone, recommend 10-day course as long as follow-up cultures remain negative. Subjective Patient seen in follow-up for streptococcal bacteremia. Patient feels well, offers no new complaints. Currently afebrile, white count normal, follow-up blood cultures are negative to date. Echocardiogram reportedly negative. Review of Systems All systems reviewed & are unremarkable except as noted in HPI & below Physical Exam Vital Signs (Past 24 Hours): Last Vital Signs Temp 36.7 C 01/14/19 15:14 Pulse 90 01/14/19 15:14 Resp 18 01/14/19 15:14 BP 160/112 H 01/14/19 15:17 Pulse Ox 98 01/14/19 15:14 Constitutional: WD/WN, vitals as above comfortable; no acute distress Eyes: PERRL, conjunctivae normal, anicteric sclerae ENMT: external ear and nose normal, oropharynx normal Neck: trachea midline, no thyromegaly neck nontender Respiratory: normal respiratory effort, lungs clear to auscultation normal percussion; no respiratory distress Cardiovascular: Rate/Rhythm: regular rate and regular rhythm Heart Sounds: normal S1 and normal S2; no gallop, no murmur and no cardiac rub Gastrointestinal (Abdomen): normal bowel sounds, soft, nontender, no hepatosplenomegaly Musculoskeletal: no cyanosis or clubbing, extremities motor strength 5/5 No spinal tenderness, no joint swelling or erythema Skin: no rashes, warm and dry no lesions Neurologic: moves all extremities and awake; no focal motor deficits Motor/Sensory: no sensory deficit Psychiatric: A+Ox3, euthymic affect Lymphatic: no cervical or axillary lymphadenopathy no inguinal lymphadenopathy Results & Data Laboratory Results Short CBC 01/14/19 Range/Units 07:16 WBC 4.52 L (4.8-10.8) K/uL Hgb 13.0 L (14.0-18.0) g/dL Hct 37.1 L (42-52) % Plt Count 131 (130-400) K/uL BMP 01/14/19 07:16 Sodium 139 Potassium 3.4 L Chloride 108 H Carbon Dioxide 24 BUN 10 Creatinine 1.14 Glucose 100 H Calcium 8.6 Liver Function 01/14/19 Range/Units 07:16 Total Bilirubin 1.5 H (0.2-1) mg/dl Direct Bilirubin 0.2 (0-0.2) mg/dl AST 21 (15-37) U/L ALT 48 (12-78) U/L Alkaline Phosphatase 111 (45-117) U/L Albumin 3.5 (3.4-5.0) gm/dl Diagnostic Findings Microbiology 01/11/19 20:28 Blood Blood Culture - Preliminary No growth to date. 01/11/19 20:04 Blood Blood Culture - Preliminary No growth to date.
[2019-01-14] MEDS: cefTRIAXone SODIUM 2,000 MG in DEXTROSE 5% 50 ML IV SCH (16:29)
--- NOTE | 2019-01-14 18:04 | Hospitalist Progress Note ---
Date of Service January 14, 2019 Assessment & Plan (1) Gram-positive cocci bacteremia: Blood cultures X2 Gram positive cocci on 01/10/19 Alpha viridens streptococcus -pansensitive Abx adjusted to IV Rocephin 2 g daily repeat Blood culture 01/11/2019: no grwoth ID eval requested appreciate input Ordered transthoracic ECHO shows no evidence of endocarditis/valvular vegetation Patient will need total 10 days of IV Rocephin treatment: On day 02/26 treatment already Will be discharged with ultrasound-guided peripheral line (provides IV access for at least 2 weeks) Patient will get IV Rocephin tomorrow a.m., will be discharged with rest 5 days of IV antibiotic Appreciate input from case management, Home health, IV antibiotic: Rocephin arranged for tomorrow Patient will have a repeat blood culture drawn in a week (2) Acute renal failure superimposed on stage 3 chronic kidney disease: Resolved, creatinine at baseline has normal appetite, IV fluids discontinued follow PRP Avoid contrast studies if possible no NSAID's (3) HTN (hypertension): BP remains elevated pt had been non complaint with BP meds in past was prescribed Labetalol 200 mg BID stopped taking for months initially started on labetalol 100 mg p.o. twice daily SBP remains elevated 150 BP meds titrated to 200 mg BID Added Norvasc 2.5 mg daily: Prescription sent to pharmacy pt is counselled for medication compliance Patient will continue to follow-up with family physician in office for further adjustment of BP meds and blood pressure monitoring (4) Hx of liver transplant: on Tacrolimus -continued bilirubin level improved ( elevated level was possible due to acute illess/dehydration _ normal LFt CT abdomen /pelvis -comments biliary dilatation USG of liver IMPRESSION: 1. Mildly coarsened liver parenchyma, nonspecific. 2. Intrahepatic ductal or ductal dilatation and pneumobilia as evident on CT. 3. Patent portal vein. GI eval requested - Appreciate input, no furthter test needed will need outpatient follow-up with gastroenterology (5) Immunocompromised state: s/p renal transplant X2 due to alpha 1 antitrypsin deficiency on Tacrolimus FULL CODE DVT PROPHYLAXIS low risk scd and teds ambulate DIPOSITION : Plan for discharge home tomorrow Subjective Offers no complaint complaint, no fever or chills, no headache Echo shows no evidence of endocarditis Discussed with ID Dr. Kay: Patient will need total 10 days of IV antibiotics wi th Rocephin Physical Exam Vital Signs (Past 24 Hours): Last Vital Signs Temp 36.7 C 01/14/19 15:14 Pulse 90 01/14/19 15:14 Resp 18 01/14/19 15:14 BP 160/112 H 01/14/19 15:17 Pulse Ox 98 01/14/19 15:14 Constitutional: WD/WN, vitals as above well developed; no acute distress Eyes: PERRL, conjunctivae normal, anicteric sclerae ENMT: external ear and nose normal, oropharynx normal Neck: trachea midline, no thyromegaly Respiratory: normal respiratory effort, lungs clear to auscultation Cardiovascular: RRR, no murmur, no edema Gastrointestinal (Abdomen): normal bowel sounds, soft, nontender, no hepatosplenomegaly Musculoskeletal: no cyanosis or clubbing, extremities motor strength 5/5 Skin: no rashes, warm and dry Neurologic: PERRL, EOMI, accommodation nl, no face palsy, no dysarthria Psychiatric: A+Ox3, euthymic affect Lymphatic: no cervical or axillary lymphadenopathy (1) Acute renal failure superimposed on stage 3 chronic kidney disease Acute renal failure type: unspecified Qualified Code(s): N17.9 - Acute kidney failure, unspecified; N18.3 - Chronic kidney disease, stage 3 (moderate) (2) HTN (hypertension) Hypertension type: unspecified Qualified Code(s): I10 - Essential (primary) hypertension
[2019-01-15 07:11] VITALS: TEMP 98.2; O2SAT 97
[2019-01-15] MEDS: LABETALOL HCL 100 MG TAB PO SCH (08:24)
[2019-01-15] MEDS: TACROLIMUS 1 MG CAP PO SCH (08:25)
[2019-01-15] MEDS ORDERED: ALUMINUM/MAGNESIUM SUSP 30 ML UDC PO STA (08:27)
[2019-01-15] MEDS ORDERED: MAGNESIUM HYDROXIDE SUSP 30 ML UDC ONE (08:30)
[2019-01-15] MEDS ORDERED: AMLODIPINE BESYLATE 5 MG TAB PO SCH (09:00)
[2019-01-15] MEDS ORDERED: cefTRIAXone SODIUM 2,000 MG in DEXTROSE 5% 50 ML IV SCH (09:00)
[2019-01-15 09:40] VITALS: BP 156/99; PULSE 78
--- NOTE | 2019-01-16 10:54 | Discharge Summary ---
Date of Service January 16, 2019 Admission HPI Per Admitting Provider 28 yo male with a history of reported a1at, s/p cadaveric liver transplant (not sure where/when) on prograf admitted 2 days ago (01/10/19) with malaise. Workup showed gram + cocci in blood cultures. He was noted to have an elevate bilirubin. Abd cherrie now shows coarsened liver, cbd of 9 mm in the setting of prior cholecystectomy. No complaints at this time of fevers, chills, belly pain, jaundice, vomiting. He wants to go home he says. Principal Diagnosis GRAM POSITIVE BACTEREMIA Discharge Exam Constitutional WD/WN, vitals as above well developed; no acute distress Eyes PERRL, conjunctivae normal, anicteric sclerae ENMT external ear and nose normal, oropharynx normal Neck trachea midline, no thyromegaly Respiratory normal respiratory effort, lungs clear to auscultation Cardiovascular RRR, no murmur, no edema Gastrointestinal (Abdomen) normal bowel sounds, soft, nontender, no hepatosplenomegaly Musculoskeletal no cyanosis or clubbing, extremities motor strength 5/5 Skin no rashes, warm and dry Neurologic PERRL, EOMI, accommodation nl, no face palsy, no dysarthria Psychiatric A+Ox3, euthymic affect Lymphatic no cervical or axillary lymphadenopathy Discharge Data Allergies Allergy/AdvReac Type Severity Reaction Status Date / Time albuterol Allergy Mild HIVES Verified 01/10/19 15:30 Consultations 01/11/19 21:14 Consult Gastroenterology Routine Consult Infectious Diseases Routine Ordered Studies 01/12/19 07:00 US liver Routine Hospital Course (1) Gram-positive cocci bacteremia: Blood cultures X2 Gram positive cocci on 01/10/19 Alpha viridens streptococcus -pansensitive Abx adjusted to IV Rocephin 2 g daily repeat Blood culture 01/11/2019: no grwoth ID eval requested appreciate input Ordered transthoracic ECHO shows no evidence of endocarditis/valvular vegetation Patient will need total 10 days of IV Rocephin treatment: On day 02/26 treatment already Will be discharged with ultrasound-guided peripheral line (provides IV access for at least 2 weeks) Patient recieved IV Rocephin today a.m. 03/28 will be discharged home with rest 5 days of IV antibiotic Appreciate input from case management, Patient will have a repeat blood culture drawn in a week (2) Acute renal failure superimposed on stage 3 chronic kidney disease: Resolved, creatinine at baseline has normal appetite, IV fluids discontinued Avoid contrast studies if possible no NSAID's (3) HTN (hypertension): BP improved after medication adjustment BP meds titrated to 200 mg BID Added Norvasc 2.5 mg daily: Prescription sent to pharmacy pt is counselled for medication compliance Patient will continue to follow-up with family physician in office for further adjustment of BP meds and blood pressure monitoring (4) Hx of liver transplant: on Tacrolimus -continued bilirubin level improved ( elevated level was possible due to acute illess/dehydration _ normal LFt CT abdomen /pelvis -comments biliary dilatation USG of liver IMPRESSION: 1. Mildly coarsened liver parenchyma, nonspecific. 2. Intrahepatic ductal or ductal dilatation and pneumobilia as evident on CT. 3. Patent portal vein. GI eval requested - Appreciate input, no furthter test needed will need outpatient follow-up with gastroenterology (5) Immunocompromised state: s/p renal transplant X2 due to alpha 1 antitrypsin deficiency on Tacrolimus FULL CODE DVT PROPHYLAXIS low risk scd and teds ambulate DIPOSITION : stable to be discharged home today Total Time Total Time Spent Total Time Spent (In Minutes): approx 35 mins Discharge Plan Discharge Items Patient Disposition: Home - Home Health Services Reason For Visit: GRAM POSITIVE BECTEREMIA Discharge Diagnosis: GRAM POSITIVE BACTEREMIA Discharge Goals: Decrease discomfort Activity: Resume your previous activity Non-emergency contact: Primary Care Provider Call non-emergency contact if: you have any medication questions Follow-up/Referrals: Jone Gusman [Physician] - 01/17/19 10:15 am (HOSPITAL FOLLOW UP WITH DR JONE BARON'S SCHEDULE IS FULL ) Diet: Regular Other Ambulatory Orders: Blood Culture (Routine) Timeframe: 1 Week Location: Determined by Patient Ordered By: Shelly Miller Provider Instructions: IT IS VERY IMPORTANT FOR YOU TO TAKE MEDICINE DIRECTED YOU HAVE UNCONTROLLED HIGH BLOOD PRESSURE PLEASE TAKE BLOOD PRESSURE MEDS : 1.LABETALOL 200 MG ( 1 TABLET ) TWICE DAILY 2.NORVASC 2.5 MG DAILY FOLLOW UP WITH DR BARON FOR BLOOD PRESSURE MONITORING COMPLETE COURSE OF ANTIBIOTIC REPEAT BLOOD CULTURE IN [address] BARON OR COME TO ER IF YOUR FEVER , BODY ACHES , HEADACHE RETURNS Prescriptions: New labetalol 100 mg Tablet 200 mg PO BID 30 Days Qty: 120 RF: 3 amlodipine [Norvasc] 2.5 mg tablet 2.5 mg PO DAILY 30 Days Qty: 30 RF: 3 ceftriaxone 2 gram recon soln 2 gm IV DAILY 5 Days Qty: 5 RF: 0 Continued tacrolimus [Prograf] 1 mg Capsule 2 mg PO Q12H RF: 0 Discontinued doxycycline hyclate 100 mg capsule 100 mg PO BID 7 Days Qty: 14 RF: 0 labetalol 100 mg tablet 100 mg PO BID 30 Days Qty: 60 RF: 0 Stand-Alone Forms: [facility] Discharge Orders: Discharge Order (Routine); Ordered 01/15/19 Ordered By: Shelly Gallegos Admission Data Admit Date/Time: 01/11/19 19:31 Attending Provider: Shelly Gallegos Admit Provider: Shelly Gallegos Primary Care Provider: Deondre Baron Other Providers: Kyle Miranda ; Nasim Gordillo ; Brittny Vidales ; Paolo Hdz ; Brenden Rasmussen ; Frances Villaseñor ; Viry Merida ; Jesus Moy ; Jose Morales ; Enedina Argueta ; Marisel Atwood ; Lilli Lund ; Hannah Ariza ; Lisandra Murillo ; Berlin Mc Service: Medical Other Interventions: Discharge Summary Assessment (RN) Last Done: 01/15/19 09:39 DC Date/Time DO NOT enter until pt leaves facility: 01/15/19 10:06
== END 2019-01-15 10:06 | disposition home health service (06) | DRG 872 ==
LOC: 4W 19:31
DX: Z94.4 Liver transplant status; N18.3 Chronic kidney disease, stage 3 (moderate); D84.9 Immunodeficiency, unspecified; Z90.49 Acquired absence of other specified parts of digestive tract; N17.9 Acute kidney failure, unspecified; R78.81 Bacteremia; I12.9 Hypertensive chronic kidney disease with stage 1 through stage 4 chronic kidney disease, or unspecified chronic kidney disease; E88.01 Alpha-1-antitrypsin deficiency; B96.89 Other specified bacterial agents as the cause of diseases classified elsewhere

== ENCOUNTER 2021-01-05 19:34 | Inpatient (IN) ==
--- OUTSIDE RECORDS SUMMARY | 2021-01-05 19:36 | External Medical Summary | Continuity of Care Document ---
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 Martínez Mc Start: 16-Jan-2019 Quantity: 90 Refills: 3 cefTRIAXone Sodium 2 GM Injection Soluti on Reconstituted; Infuse 2g daily via ultrasound guided peripheral line through 01/25/19 or until f/u with Martínez Donis Start: 16-Jan-2019 Quantity: 2 Refills: 0 Labetalol HCl - 200 MG Oral Tablet; TAKE 1 TABLET TWIC E DAILY. Martínez Mc Start: 16-Jan-2019 Quantity: 60 Refills: 11 Tacrolimus 1 MG Oral Capsule; TAKE 2 CAPSULES TWICE DAILY Martínez Stewart Start: 16-Jan-2019 Refills: 0 Procedures History of liver transplantation Status: Completed History of Tonsillectomy Status: Complet ed History of tympanoplasty Status: Complet ed Immunizations Immunizations not documented Plan of Treatment Planned Observations Planned Goals not documented Results No Known Results Results not documented Encounters Appointment; Berlin Mc M.D. 22-Jan-2019 14:00 Encounter Diagnosis: Problem not documented Appointment; Berlin Mc M.D. 18-Feb-2019 15:30 Encounter Diagnosis: Problem not documented
--- OUTSIDE RECORDS SUMMARY | 2021-01-05 19:36 | External Medical Summary | Continuity of Care Document ---
:1990 Author Name Carlos Soliz Address Unavailable Unavailable , Care Team Providers Name Role Phone Jesusita Soliz, T. 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 Martínez Mc Start: 16-Jan-2019 Quantity: 90 Refills: 3 Labetalol HCl - 200 MG Oral Tablet; [...]
[2021-01-05] MEDS ORDERED: CEFEPIME 2,000 MG/20 ML VIAL IV STA (19:52)
[2021-01-05] MEDS ORDERED: DAPTOmycin 475 MG in SYRINGE 0 ML IV ONE (19:52)
[2021-01-05] MEDS ORDERED: ACETAMINOPHEN 1000 MG/100 ML IV IV STA (19:55)
[2021-01-05] MEDS ORDERED: IBUPROFEN 600 MG TAB PO STA (19:55)
[2021-01-05] MEDS ORDERED: ONDANSETRON INJ 2 MG/ML 2 ML VIAL IV STA (19:57)
[2021-01-05] MEDS ORDERED: MoRPHine SULFATE 2 MG/ML CARP IV PRN (19:57)
--- NOTE | 2021-01-05 19:57 | Emergency Department Note ---
Impression & Plan Sepsis, History of liver transplant, Immunocompromised, Tachycardia, Body aches, DEBORAH (acute kidney injury), Hepatic abscess ED Provider Note NAME: GUNNER MCCOY JR AGE: 30 SEX: M : 1990 ARRIVES VIA: Walk-In INFORMANT: [Patient] ED PROVIDER(S): [Scot Hernandez MD] CHIEF COMPLAINT: Fever HISTORY OF PRESENT ILLNESS: The patient is a 30-year-old male presents to the ED with flulike symptoms that started 2 days ago. Patient states that he initially had a stuffy nose and sore throat and a mild headache. Things progressed to chills, all over body aches, all over body pain. He has had vomiting. Patient has diffuse abdominal pain. Patient rates all his pain as severe. Patient did try some Tylenol 12 hours ago without relief. There have been no Covid exposures, no sick contacts. Patient does have a history of liver transplant and is immunocompromised. He has a history of sepsis a few years ago. REVIEW OF SYSTEMS: See HPI for pertinent positives and negatives. A total of ten systems were reviewed and were otherwise negative. PMHx/PSHx: See Below SOCIAL HISTORY: See Below. PHYSICAL EXAM: GENERAL: Patient is in moderate distress from pain. HEENT: No acute trauma, normocephalic atraumatic, mucous membranes moist, no nasal congestion, no scleral icterus. No throat erythema or exudate. NECK: No stridor, no adenopathy, no meningismus, trachea is midline. LUNGS: No respiratory distress, no obvious wheeze, no increased respiratory rate or accessory muscle use. HEART: Tachycardic, regular rhythm, equal radial pulses bilaterally. ABDOMEN: Soft, diffusely moderately tender although he seems mostly tender in the upper abdomen, bowel sounds positive, no hernias, no peritonitis. EXTREMITIES: No cyanosis or edema, full range of motion of all the joints without pain or difficulty, no signs for acute trauma. NEUROLOGIC: Oriented x 3, no acute motor or sensory deficits, no focal weakness. SKIN: No rash, no jaundice, no diaphoresis. DIFFERENTIAL DIAGNOSIS: Sepsis, UTI, pneumonia, metabolic abnormality, COVID-19, influenza, liver failure, liver rejection, electrolyte abnormalities, cardiac sources, cellu litis, UTI, bacteremia, intracerebral event, toxicologic etiology, neurologic event, as well as other pathologies. EMERGENCY DEPARTMENT COURSE/PROCEDURES: ECG: Indication was tachycardia. The ECG shows a sinus tachycardia with a rate of 151. The QTc is 519. There is no ST elevation, no PVCs. There is some diffuse nonspecific ST change. Continuous Cardiac Monitoring: An order was placed for continuous cardiac monitoring. The monitor shows a rate of 115 with sinus tachycardia. Critical Care Note: I have personally spent 52 minutes of critical care time in the direct management of this patient. This includes bedside care, interpretation of diagnostic studies, and testing, discussion with consultants, patient, and family members, and other required patient management activities. This 52 minutes is in excess of all separately billable procedures. MEDICAL DECISION MAKING: There is no leukocytosis or worrisome anemia. There is a normal platelet count. No coagulopathy. There was evidence for some acute kidney injury with a creatinine of 1.61. No significant electrolyte abnormality requiring correction. Lactic acid level was not elevated making severe sepsis less likely. Bilirubin was elevated at 3.1, he has had some liver enzyme elevations before although, today's value is higher than the most recent testing. Ammonia level was not elevated. Procalcitonin level was elevated consistent with a bacterial infection. ECG showed a sinus tachycardia, no acute ischemia. Cardiac enzyme testing x1 is not consistent with acute cardiac injury. Chest x- ray did not show pneumonia or free air. Influenza, RSV and Covid testing returned negative. Abdominal and pelvis CT shows a potential hepatic abscess, there was persistent pneumobilia. The patient was aggressively managed. He appeared quite ill. He met criteria for sepsis. He is immunocompromised. He has been septic in the past. The patient received IV Tylenol for his fever. He was given IV cefepime and IV daptomycin as antibiotic coverage. He received oral ibuprofen for fever. He received IV morphine for pain, IV Zofran for nausea, he received 2 L of IV saline. The patient's heart rate has improved, he seems more comfortable. He is being hospitalized. I spoke to the patient and case management. The on-call hospitalist was consulted. I did speak to the transplant physician at [facility] in [place]. The patient is not in need of emergent transfer. He can be treated here and then once improving, can be sent to their facility for IR drainage of his abscess. I relayed this information to the on-call hospitalist. 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 Ariza note from 05/13/2015: "He is status post a OLT at [facility] in [place] x2 (1992 for A1AT and 1995 for chronic rejection). He has had mild chronic rejection as late at 2008. At that time, per Dr. 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 Tang's pediatric GI follow up. 02/09/13 admission for acute liver failure insufficiency, sudden onset with fever, fatigue: 02/10/13 liver bx showed Acute cholangitis 02/13/13 cholangiogram Imaging demonstrated a severe stricture at the biliary /bowel anastomotic site. There was moderate to severe biliary ducts dilatation on the cholangiogram. The anastomotic stenosis was negotiated and an internal external biliary drain was placed in appropriate position 02/20/13 cholangiogram IMAGING FINDINGS: Initial images from the existing biliary catheter demonstrated the catheter with the pigtail loop in satisfactory position. Cholangiogram demonstrated mild biliary ductal dilatation with contrast flow noted in the bowel. A new 8 [place] biliary catheter was placed and the pigtail loop was appropriately formed in the bowel loop and the catheter sideholes were appropriately placed proximal to the biliary obstruction for adequate drainage. Mid 03-01, saw Dr. Lindo in clinic today, the patient had the biliary tube capped for 2 weeks with no symptoms. He was seen by transplant surgery on 03-11-13, got admitted to [facility] from 03-13-13 to 03-19-13 for disseminated varicella. He underwent CHOLANGIOGRAM BALLOON DILATATION AND CONVERSION OF EXT BILIARY DRAINAGE TO I/E BILIARY CATHETER on 03-24-13 by IR. He is taking prograf 2mg in AM and 3 mg in PM. Pt had cholangiogram on 04-22-13 that showed PERSISTENT MODERATEY SEVERE CHOLEDOCHO-ENTERIC ANASTOMOTIC STRICTURE. UPSIZED EXISTING 10-FR BILIARY DRAIN TO 12-FR INTERNAL EXTERNAL BILIARY DRAIN--> TUBE LEFT CAPPED Pt was scheduled for I/E biliary catheter exchange and upsizing to 14 Fr on 08-27-13. Last time Rt biliary catheter was changed on 10-21-13, there was a brisk flow of contrast through the catheter. Finally, pt's I/E biliary catheter was pulled out on 12-19-13. Review of labs show that T.bili is down to 2.6, FK levels (05-26-14): 4.2, Cr increased to 1.6 on tacrolimus 2 mg qam, 3 mg q pm. 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) Surgical History (Updated 01/05/21 @ 22:01 by Scot Hernandez MD) History of tonsillectomy and adenoidectomy History of tympanoplasty Family History Other No family history of disorders Social History Smoking Status: Never smoker Second Hand Exposure: No; Hx Alcohol Use: No Hx Substance Use: No Preferred Language: Cambodian Communication Ability: Effective Mattress Maker Required: No Beliefs That Will Affect Care: None marital status: Single Current Living Situation: Parent Other Information That Helps Us Care for You: No Feels Safe at Home: Yes Safety Concerns: Feels Safe At This Time Assistive Devices: Glasses Allergies Allergies Allergy/AdvReac Type Severity Reaction Status Date / Time albuterol Allergy Mild HIVES Verified 01/05/21 20:39 Home Meds Home Medications Medication Instructions Recorded Confirmed tacrolimus [Prograf] 1 mg PO USEASDIRECTD 01/10/19 01/05/21 acetaminophen [Tylenol Extra 500 - 1,000 mg PO Q6H PRN 01/05/21 01/05/21 Strength] ibuprofen 400 mg PO Q6H PRN 01/05/21 01/05/21 Results & Data (ED) Vital Signs Vital Signs - 24 hr 01/05/21 19:36 01/05/21 19:52 01/05/21 20:00 Temperature 38.6 C H Temperature Source Temporal Artery Scan Pulse Rate 151 H 153 H Pulse Rate from SpO2 Sensor Respiratory Rate 20 22 24 Respiratory Effort / Characteristics Non-Labored Spontaneous Respiratory Depth Normal Respiratory Pattern Regular Blood Pressure 157/80 H Blood Pressure Mean 105 Blood Pressure Position Sitting Pulse Oximetry 100 Oxygen Delivery Method Room Air Sepsis Recent Fever Within 48 Hours Yes Sepsis New/Unexplained Change in Mental Status No Sepsis Action Taken by Nursing No Action Required 01/05/21 20:15 01/05/21 20:16 01/05/21 20:30 Temperature Temperature Source Pulse Rate 138 H 138 H 132 H Pulse Rate from SpO2 Sensor 138 H 132 H Respiratory Rate 21 20 Respiratory Effort / Characteristics Respiratory Depth Respiratory Pattern Blood Pressure Blood Pressure Mean Blood Pressure Position Pulse Oximetry 99 100 98 Oxygen Delivery Method Room Air Sepsis Recent Fever Within 48 Hours Sepsis New/Unexplained Change in Mental Status Sepsis Action Taken by Nursing 01/05/21 20:32 01/05/21 20:39 01/05/21 20:45 Temperature Temperature Source Pulse Rate 130 H 127 H Pulse Rate from SpO2 Sensor 132 H 127 H Respiratory Rate 20 20 18 Respiratory Effort / Characteristics Non-Labored Spontaneous Respiratory Depth Respiratory Pattern Blood Pressure 149/104 H Blood Pressure Mean 119 Blood Pressure Position Pulse Oximetry 99 98 97 Oxygen Delivery Method Room Air Sepsis Recent Fever Within 48 Hours Sepsis New/Unexplained Change in Mental Status Sepsis Action Taken by Nursing 01/05/21 21:00 01/05/21 21:01 01/05/21 21:15 Temperature Temperature Source Pulse Rate 123 H 122 H 117 H Pulse Rate from SpO2 Sensor 124 H 122 H 117 H Respiratory Rate 19 23 15 Respiratory Effort / Characteristics Respiratory Depth Respiratory Pattern Blood Pressure 141/82 H Blood Pressure Mean 101 Blood Pressure Position Pulse Oximetry 95 96 97 Oxygen Delivery Method Sepsis Recent Fever Within 48 Hours Sepsis New/Unexplained Change in Mental Status Sepsis Action Taken by Nursing 01/05/21 21:30 01/05/21 21:31 01/05/21 21:49 Temperature Temperature Source Pulse Rate 114 H 115 H Pulse Rate from SpO2 Sensor 114 H 115 H 110 H Respiratory Rate 17 14 Respiratory Effort / Characteristics Respiratory Depth Respiratory Pattern Blood Pressure 134/81 Blood Pressure Mean 98 Blood Pressure Position Pulse Oximetry 96 96 96 Oxygen Delivery Method Sepsis Recent Fever Within 48 Hours Sepsis New/Unexplained Change in Mental Status Sepsis Action Taken by Nursing 01/05/21 21:58 01/05/21 22:00 01/05/21 22:01 Temperature 38.2 C H Temperature Source Oral Pulse Rate Pulse Rate from SpO2 Sensor 103 H 105 H Respiratory Rate Respiratory Effort / Characteristics Respiratory Depth Respiratory Pattern Blood Pressure 132/74 Blood Pressure Mean 93 Blood Pressure Position Pulse Oximetry 96 97 Oxygen Delivery Method Sepsis Recent Fever Within 48 Hours Sepsis New/Unexplained Change in Mental Status Sepsis Action Taken by Nursing 01/05/21 22:15 Temperature Temperature Source Pulse Rate Pulse Rate from SpO2 Sensor 103 H Respiratory Rate Respiratory Effort / Characteristics Respiratory Depth Respiratory Pattern Blood Pressure Blood Pressure Mean Blood Pressure Position Pulse Oximetry 97 Oxygen Delivery Method Sepsis Recent Fever Within 48 Hours Sepsis New/Unexplained Change in Mental Status Sepsis Action Taken by Correction Medications Current Medication List: was personally reviewed by me Laboratory Data Attestation: I reviewed the patient's lab results. Result diagrams: 01/05/21 20:07 01/05/21 20:07 Lab Results 01/05/21 01/05/21 01/05/21 Range/Units 20:05 20:05 20:07 WBC 8.30 (4.8-10.8) K/uL RBC 4.74 (4.7-6.1) M/uL Hgb 13.9 L (14.0-18.0) g/dL Hct 37.7 L (42-52) % MCV 79.5 L (80-100) fL MCH 29.3 (25-34) pg MCHC 36.9 H (32-36) g/dL RDW Std Deviation 39.7 (36.4-46.3) fL RDW Coeff of Emre 13.6 (11.5-14.5) % Plt Count 159 (130-400) K/uL MPV 11.5 H (7.4-10.4) fL Immature Gran % (Auto) 0.2 % Neut % (Auto) 89.7 % Lymph % (Auto) 4.3 % [facility] % (Auto) 5.7 % Eos % (Auto) 0.1 % Baso % (Auto) 0.0 % Neut # (Auto) 7.44 H (1.4-6.5) K/uL Lymph # (Auto) 0.36 L (1.2-3.4) K/uL [facility] # (Auto) 0.47 (0.11-0.59) K/uL Eos # (Auto) 0.01 (0-0.5) K/uL Baso # (Auto) 0.00 (0-0.2) K/uL Immature Gran # (Auto) 0.02 (0.00-0.02) K/uL PT (9.0-12.0) Seconds INR (0.9-1.1) APTT (21.0-31.0) Seconds PTT Ratio Sodium (136-145) mmol/L Potassium (3.5-5.1) mmol/L Chloride (98-107) mmol/L Carbon Dioxide (21-32) mmol/L Anion Gap (3-11) BUN (7-18) mg/dl Creatinine (0.6-1.4) mg/dl Est Cr Clr Drug Dosing ml/min Est GFR ( Amer) Est GFR (Non-Af Amer) BUN/Creatinine Ratio (10-20) Glucose (70-99) mg/dl Lactate (0.4-2.0) mmol/L Calcium (8.5-10.1) mg/dl Magnesium (1.8-2.4) mg/dl Total Bilirubin (0.2-1) mg/dl AST (15-37) U/L ALT (12-78) U/L Alkaline Phosphatase (45-117) U/L Ammonia (11-32) umol/L Troponin I (0-0.045) ng/ml Total Protein (6.4-8.2) gm/dl Albumin (3.4-5.0) gm/dl Globulin (2.5-4.0) gm/dl Albumin/Globulin Ratio (0.9-2) Procalcitonin (0-0.5) ng/ml COVID-19 Eval Order CovFluRsv at [facility] SARS-CoV-2 (PCR) NEGATIVE (Negative) Influenza Type A (PCR) Negative (Neg) Influenza Type B (PCR) Negative (Neg) RSV (RT-PCR) Negative (Neg) 01/05/21 01/05/21 01/05/21 Range/Units 20:07 20:07 20:07 WBC (4.8-10.8) K/uL RBC (4.7-6.1) M/uL Hgb (14.0-18.0) g/dL Hct (42-52) % MCV (80-100) fL MCH (25-34) pg MCHC (32-36) g/dL RDW Std Deviation (36.4-46.3) fL RDW Coeff of Emre (11.5-14.5) % Plt Count (130-400) K/uL MPV (7.4-10.4) fL Immature Gran % (Auto) % Neut % (Auto) % Lymph % (Auto) % [facility] % (Auto) % Eos % (Auto) % Baso % (Auto) % Neut # (Auto) (1.4-6.5) K/uL Lymph # (Auto) (1.2-3.4) K/uL [facility] # (Auto) (0.11-0.59) K/uL Eos # (Auto) (0-0.5) K/uL Baso # (Auto) (0-0.2) K/uL Immature Gran # (Auto) (0.00-0.02) K/uL PT 10.4 (9.0-12.0) Seconds INR 1.0 (0.9-1.1) APTT 24.4 (21.0-31.0) Seconds PTT Ratio 0.9 Sodium 133 L (136-145) mmol/L Potassium 3.6 (3.5-5.1) mmol/L Chloride 98 (98-107) mmol/L Carbon Dioxide 27 (21-32) mmol/L Anion Gap 8.0 (3-11) BUN 29 H (7-18) mg/dl Creatinine 1.61 H (0.6-1.4) mg/dl Est Cr Clr Drug Dosing 91.5 ml/min Est GFR ( Amer) 65.5 Est GFR (Non-Af Amer) 56.5 BUN/Creatinine Ratio 18.2 (10-20) Glucose 121 H (70-99) mg/dl Lactate (0.4-2.0) mmol/L Calcium 10.0 (8.5-10.1) mg/dl Magnesium 2.1 (1.8-2.4) mg/dl Total Bilirubin 3.1 H (0.2-1) mg/dl AST 26 (15-37) U/L ALT 69 (12-78) U/L Alkaline Phosphatase 156 H (45-117) U/L Ammonia (11-32) umol/L Troponin I < 0.015 (0-0.045) ng/ml Total Protein 8.9 H (6.4-8.2) gm/dl Albumin 3.5 (3.4-5.0) gm/dl Globulin 5.4 H (2.5-4.0) gm/dl Albumin/Globulin Ratio 0.6 L (0.9-2) Procalcitonin 7.55 H (0-0.5) ng/ml COVID-19 Eval Order SARS-CoV-2 (PCR) (Negative) Influenza Type A (PCR) (Neg) Influenza Type B (PCR) (Neg) RSV (RT-PCR) (Neg) 01/05/21 01/05/21 Range/Units 20:07 20:25 WBC (4.8-10.8) K/uL RBC (4.7-6.1) M/uL Hgb (14.0-18.0) g/dL Hct (42-52) % MCV (80-100) fL MCH (25-34) pg MCHC (32-36) g/dL RDW Std Deviation (36.4-46.3) fL RDW Coeff of Emre (11.5-14.5) % Plt Count (130-400) K/uL MPV (7.4-10.4) fL Immature Gran % (Auto) % Neut % (Auto) % Lymph % (Auto) % [facility] % (Auto) % Eos % (Auto) % Baso % (Auto) % Neut # (Auto) (1.4-6.5) K/uL Lymph # (Auto) (1.2-3.4) K/uL [facility] # (Auto) (0.11-0.59) K/uL Eos # (Auto) (0-0.5) K/uL Baso # (Auto) (0-0.2) K/uL Immature Gran # (Auto) (0.00-0.02) K/uL PT (9.0-12.0) Seconds INR (0.9-1.1) APTT (21.0-31.0) Seconds PTT Ratio Sodium (136-145) mmol/L Potassium (3.5-5.1) mmol/L Chloride (98-107) mmol/L Carbon Dioxide (21-32) mmol/L Anion Gap (3-11) BUN (7-18) mg/dl Creatinine (0.6-1.4) mg/dl Est Cr Clr Drug Dosing ml/min Est GFR ( Amer) Est GFR (Non-Af Amer) BUN/Creatinine Ratio (10-20) Glucose (70-99) mg/dl Lactate 1.6 (0.4-2.0) mmol/L Calcium (8.5-10.1) mg/dl Magnesium (1.8-2.4) mg/dl Total Bilirubin (0.2-1) mg/dl AST (15-37) U/L ALT (12-78) U/L Alkaline Phosphatase (45-117) U/L Ammonia < 10.0 L (11-32) umol/L Troponin I (0-0.045) ng/ml Total Protein (6.4-8.2) gm/dl Albumin (3.4-5.0) gm/dl Globulin (2.5-4.0) gm/dl Albumin/Globulin Ratio (0.9-2) Procalcitonin (0-0.5) ng/ml COVID-19 Eval Order SARS-CoV-2 (PCR) (Negative) Influenza Type A (PCR) (Neg) Influenza Type B (PCR) (Neg) RSV (RT-PCR) (Neg) Administered Medications Morphine Sulfate (Morphine Sulfate 2 Mg/Ml Carp) 2 mg IV Q15M PRN PRN Reason: Pain Stop: 01/19/21 19:56 Last Admin: 01/05/21 20:22 Dose: 2 mg Documented by: [id number] Discontinued Medications Acetaminophen (Acetaminophen 1000 Mg/100 Ml Iv) 1,000 mg IV NOW STA Stop: 01/05/21 19:56 Last Admin: 01/05/21 20:29 Dose: 1,000 mg Documented by: [id number] Sodium Chloride (Nss 1000ml) 1,000 mls @ 999 mls/hr IV .Q1H1M TRENT Stop: 01/05/21 21:00 Last Admin: 01/05/21 21:24 Dose: 999 mls/hr Documented by: [id number] Cefepime HCl (Maxipime) 2,000 mg in 20 mls @ 5 mls/min IV NOW STA; Protocol Stop: 01/05/21 19:55 Last Admin: 01/05/21 20:25 Dose: 5 mls/min Documented by: [id number] Daptomycin 475 mg/ Syringe 9.5 mls @ 4.75 mls/min IV NOW ONE; Protocol Stop: 01/05/21 19:53 Last Admin: 01/05/21 20:40 Dose: 4.75 mls/min Documented by: [id number] Sodium Chloride (Nss 1000ml) 1,000 mls @ 999 mls/hr IV .Q1H1M ONE Stop: 01/05/21 21:10 Last Infusion: 01/05/21 21:24 Dose: 0 mls/hr Documented by: [id number] Admin: 01/05/21 20:21 Dose: 999 mls/hr Documented by: [id number] Ibuprofen (Ibuprofen 600 Mg Tab) 600 mg PO NOW STA Stop: 01/05/21 19:56 Last Admin: 01/05/21 20:29 Dose: 600 mg Documented by: [id number] Ioversol (Ioversol 100ml) 93 ml IV ONCE ONE Stop: 01/05/21 21:42 Last Admin: 01/05/21 21:42 Dose: 93 ml Documented by: [id number] Ondansetron HCl (Ondansetron Inj 2 Mg/Ml 2 Ml Vial) 4 mg IV NOW STA Stop: 01/05/21 19:58 Last Admin: 01/05/21 20:32 Dose: 4 mg Documented by: [id number] Imaging Data Attestation: I personally reviewed and interpreted this imaging study as follows: My Impression: Chest x-ray: There is no pneumonia, CHF or free air. No significant mediastinal widening. Radiologist's Impression: Abdominal and pelvis CT with IV contrast: There is persistent pneumobilia and biliary dilatation. There is a new 3.9 x 3.4 x 3.1 complex hypodense collection in the posterior right hepatic lobe likely represe nting an abscess. Splenomegaly was noted. There was perisplenic varices consistent with portal hypertension. There is persistent mild periportal lymphadenopathy. Postsurgical changes noted. No appendicitis. No diverticulitis. Mild bilateral fat-containing inguinal hernias. Discharge Plan Visit Data Chief Complaint: Fever Stated Complaint: body aches, fever ED Provider: Scot Hernandez Discharge Problem: Sepsis, History of liver transplant, Immunocompromised, Tachycardia, Body aches, DEBORAH (acute kidney injury), Hepatic abscess Patient Disposition: Admitted As Inpatient Condition: Serious Discharge Instructions Interventions: ED Discharge Assessment Last Done: 01/05/21 22:49 Discharge Problem: Sepsis Qualifiers: Sepsis type: sepsis due to unspecified organism Sepsis acute organ dysfunction status: with acute organ dysfunction Severe sepsis acute organ dysfunction type: acute renal failure Acute renal failure type: unspecified Severe sepsis shock status: without septic shock Qualified Code(s): A41.9 - Sepsis, unspecified organism
[2021-01-05] MEDS ORDERED: SODIUM CHLORIDE 0.9% 1000ML 1,000 ML IV SCH (20:00)
[2021-01-05] MEDS ORDERED: SODIUM CHLORIDE 0.9% 1000ML 1,000 ML IV ONE (20:10)
[2021-01-05 20:16] LABS: Eosinophils # (auto) 0.01 K/uL (0-0.5); Eosinophils % (auto) 0.1 %; Hematocrit (blood only) 37.7 % (42-52); Hemoglobin 13.9 g/dL (14.0-18.0); Immature Granulocytes # (auto) 0.02 K/uL (0.00-0.02); Immature Granulocytes % (auto) 0.2 %; Lymphocytes # (auto) 0.36 K/uL (1.2-3.4); Lymphocytes % (auto) 4.3 %; Mean Corpuscular Hemoglobin 29.3 pg (25-34); Mean Corpuscular Hgb Conc 36.9 g/dL (32-36); Mean Corpuscular Volume 79.5 fL (80-100); Mean Platelet Volume 11.5 fL (7.4-10.4); Monocytes # (auto) 0.47 K/uL (0.11-0.59); Monocytes % (auto) 5.7 %; Neutrophils # (auto) 7.44 K/uL (1.4-6.5); Neutrophils % (auto) 89.7 %; Platelet Count 159 K/uL (130-400); RDW Coefficient of Variation 13.6 % (11.5-14.5); RDW Standard Deviation 39.7 fL (36.4-46.3); Red Blood Count 4.74 M/uL (4.7-6.1)
[2021-01-05 20:26] LABS: Partial Thromboplastin Ratio 0.9; Partial Thromboplastin Time 24.4 Seconds (21.0-31.0); Prothrombin Time 10.4 Seconds (9.0-12.0)
[2021-01-05 20:33] LABS: Alanine Aminotransferase 69 U/L (12-78); Albumin Level 3.5 gm/dl (3.4-5.0); Aspartate Aminotransferase 26 U/L (15-37); BUN Creatinine Ratio 18.2 (10-20); Blood Urea Nitrogen 29 mg/dl (7-18); Carbon Dioxide 27 mmol/L (21-32); Chloride 98 mmol/L (98-107); Creatinine Clr Calc Pharmacy 91.5 ml/min; Est GFR (African American) 65.5; Est GFR (Non-African American) 56.5; Glucose 121 mg/dl (70-99); Magnesium 2.1 mg/dl (1.8-2.4); Potassium 3.6 mmol/L (3.5-5.1); Sodium 133 mmol/L (136-145)
[2021-01-05 20:37] LABS: Albumin Globulin Ratio 0.6 (0.9-2); Alkaline Phosphatase 156 U/L (45-117); Bilirubin,Total 3.1 mg/dl (0.2-1); Globulin 5.4 gm/dl (2.5-4.0); Total Protein 8.9 gm/dl (6.4-8.2); Troponin I < 0.015 ng/ml (0-0.045)
[2021-01-05 20:53] LABS: Influenza A virus by PCR Negative (Neg); Influenza B virus by PCR Negative (Neg); RSV by PCR Negative (Neg); SARS CoV2 RNA(COVID-19) InHosp NEGATIVE (Negative)
[2021-01-05] MEDS ORDERED: OPTIRAY 320 100ml IV ONE (21:41)
[2021-01-05] MEDS ORDERED: ONDANSETRON INJ 2 MG/ML 2 ML VIAL IV PRN (23:15)
[2021-01-05] MEDS ORDERED: NITROGLYCERIN SL 0.4 MG/TAB TAB SL PRN (23:15)
[2021-01-05] MEDS ORDERED: ACETAMINOPHEN 325 MG TAB PO PRN (23:15)
[2021-01-05] MEDS ORDERED: CEFEPIME CONSULT ACTIVE PRN (23:32)
[2021-01-05] MEDS: SODIUM CHLORIDE 0.9% 1000ML 1,000 ML IV SCH (23:46)
--- NOTE | 2021-01-06 00:06 | History and Physical Report ---
DATE OF ADMISSION: 01/05/2021 CHIEF COMPLAINT: Sepsis. HISTORY OF PRESENT ILLNESS: A 30-year-old male with past medical history significant for s/p Liver transplant,history of cholangitis with transplant of the liver, biliary anastomotic stenosis, history of disseminated varicella, gout, hypertension, but no longer on medications. Presents with fever going on since last Sunday night. He says maximum temperature 102 degrees. He is having body aches, headache, neck pain and fevers. Denies any cough, no shortness of breath, no runny nose, no sore throat, no loss of sense of smell or taste. Lives with mom. No COVID exposure. Denies any blurred vision, no double vision, no earache, no runny nose. He says he was nauseous and vomiting and appetite is down, no abdominal pain, no chest pain, no shortness of breath, no diarrhea or constipation, no blood in stool or black stools. Urine is dark because he seems to be dehydrated. Denies any hematuria or burning micturition. No rash, no swelling in the legs. ALLERGIES: ALBUTEROL, PROVENTIL. PAST MEDICAL HISTORY: As mentioned above. PAST SURGICAL HISTORY: Transhepatic biliary drainage, circumcision, cholangiography, IR drainage, liver biopsy, liver transplant, tonsillectomy. MEDICATIONS: Prograf 1 mg in the a.m. and 2 mg in the p.m. FAMILY HISTORY: Significant for maternal grandmother has hypertension, has thyroid disorder. SOCIAL HISTORY: Single. No smoking. No alcohol use. No drug use. REVIEW OF SYSTEMS: As per HPI. Rest of the review of systems negative. PHYSICAL EXAMINATION: GENERAL: The patient is of moderate build. The patient is not in acute distress. VITAL SIGNS: Temperature 38.2; pulse when he came in was in 150s, currently 94; blood pressure 139/83; oxygen 94% on room air. HEENT: Pupils equal, round, and reactive to light. Oral mucosa moist. NECK: No JVD, no neck masses. Supple, no neck stiffness. CARDIOVASCULAR: S1, S2 heard. Tachycardia. No murmurs. RESPIRATORY SYSTEM: Normal AP diameter. No accessory muscle use. No wheezing, no crackles. ABDOMEN: Soft, bowel sounds present, nontender. No distention. CENTRAL NERVOUS SYSTEM: Cranial nerves II-XII grossly intact. Nonfocal. EXTREMITIES: No edema, no erythema. LABORATORY DATA: WBC 8.3, hemoglobin 13.9, hematocrit 37.7, platelets 159. PT 10.4, INR 1, APTT 24.4. Sodium 133, potassium 3.6, chloride 98, bicarbonate 27, BUN 29, creatinine 1.6, serum glucose 121, lactate 1.6, calcium 10, magnesium 2.1, total bilirubin 3.1, AST 26, ALT 16, alkaline phosphatase 156. Ammonia less than 10. Troponin I less than 0.015. Procalcitonin 7.5. SARS-CoV-2 PCR negative. Influenza A and B PCR negative. RSV PCR negative. EKG: Sinus tachycardia at a rate of 151, no significant change was found. IMAGING DATA: Chest x-ray, no acute findings. CT of abdomen and pelvis, preliminary report is showing persistent intrahepatic biliary dilatation with pneumobilia, a new 3.9 x 3.4 x 3.7 cm complex, hypodense collection in the posterior right hepatic lobe, likely hepatic abscess, splenomegaly .Persistent darcie-splenic varices indicating portal hypertension, persistent mild periportal lymphadenopathy, cholecystectomy as before. No evidence of acute appendicitis, mild colonic diverticulosis. No CT evidence for diverticulitis. Mild bilateral fat-containing inguinal hernias. ASSESSMENT AND PLAN: A 30-year-old male with history of liver transplant, who comes with sepsis. 1. Sepsis: History of bacteremia in the past. COVID is negative, flu PCR negative. Preliminary report in the CAT scan is showing possible hepatic abscess. ER talked to the transplant center, Dr. Brandt and was advised to keep the patient in the hospital overnight and stabilize him and transfer him tomorrow for IR. ER gave him daptomycin and Cefepime, which will be continue. Continue IV fluids at 125 mL per hour. Follow the repeat labs in the a.m. Monitor closely in tele floor. 2. History of liver transplant, on Prograf. Follow up with hepatology. 3. History of hypertension, currently not taking any medications.Will monitor. 4. History of gout, currently not taking any medications. 5. Deep vein thrombosis prophylaxis, sequential compression devices for now, Lovenox. DISPOSITION: Closely monitor in tele floor. Level 1 full code. MTDD
[2021-01-06 06:16] LABS: Eosinophils # (auto) 0.01 K/uL (0-0.5); Eosinophils % (auto) 0.2 %; Hematocrit (blood only) 32.7 % (42-52); Hemoglobin 11.6 g/dL (14.0-18.0); Immature Granulocytes # (auto) 0.01 K/uL (0.00-0.02); Immature Granulocytes % (auto) 0.2 %; Lymphocytes # (auto) 0.63 K/uL (1.2-3.4); Lymphocytes % (auto) 9.6 %; Mean Corpuscular Hemoglobin 28.4 pg (25-34); Mean Corpuscular Hgb Conc 35.5 g/dL (32-36); Mean Corpuscular Volume 80.1 fL (80-100); Mean Platelet Volume 11.5 fL (7.4-10.4); Monocytes # (auto) 0.47 K/uL (0.11-0.59); Monocytes % (auto) 7.2 %; Neutrophils # (auto) 5.44 K/uL (1.4-6.5); Neutrophils % (auto) 82.8 %; Platelet Count 104 K/uL (130-400); RDW Coefficient of Variation 13.9 % (11.5-14.5); RDW Standard Deviation 41.1 fL (36.4-46.3); Red Blood Count 4.08 M/uL (4.7-6.1); White Blood Count 6.56 K/uL (4.8-10.8)
[2021-01-06] MEDS ORDERED: PIPERACILL/TAZOBAC CONSULT ACTIVE PRN (06:18)
[2021-01-06] MEDS: SODIUM CHLORIDE 0.9% 1000ML 1,000 ML IV SCH ×2 (06:27→13:29)
[2021-01-06] MEDS ORDERED: PIPERACILLIN/TAZOBACTAM 3.375 GM in DEXTROSE 5% 100 ML IV ONE (06:30)
[2021-01-06 06:44] LABS: Calcium 8.8 mg/dl (8.5-10.1); Creatinine Clr Calc Pharmacy 93.4 ml/min; Est GFR (African American) 77.6; Est GFR (Non-African American) 66.9; Potassium 3.6 mmol/L (3.5-5.1)
[2021-01-06 06:50] LABS: Estimated Average Glucose 85 mg/dl; Hemoglobin A1C 4.6 % (4.5-5.6)
[2021-01-06 06:58] LABS: Appearance Urine Clear (Clear); Bacteria Urine Automated Negative (Negative); Bilirubin Urine Negative (Negative); Blood Urine Negative (Negative); Color Urine Dark Yellow; Glucose Urine UA Negative (Negative); Ketones Urine Trace (Negative); Leukocyte Esterase Urine Negative (Negative); Nitrite Urine Negative (Negative); Protein Urine 1+ (Negative); Specific Gravity Urine 1.037 (1.000-1.030); Urobilinogen Urine Negative (Negative)
--- NOTE | 2021-01-06 08:00 | XRay Report ---
XR chest 1V portable CLINICAL HISTORY: SEPSIS COMPARISON STUDY: The 2018 FINDINGS: The cardiac and mediastinal contours are normal. There is no evidence of focal pulmonary co nsolidation. There is no evidence of failure. No pleural effusions are visualized.[ IMPRESSION: No active disease in the chest. ACT 112: Negative or not required by law. Electronically signed by: Ren Mulligan M.D. 01/06/2021 7:59 AM
--- NOTE | 2021-01-06 08:11 | CT Scan Report ---
ABDOMEN AND PELVIS CT WITH IV CONTRAST CT DOSE: 769.21 mGy.cm HISTORY: liver transplant, fever, pain TECHNIQUE: Multiaxial CT images of the abdomen and pelvis were performed following the use of intrave nous contrast. A dose lowering technique was utilized adhering to the principles of ALARA. COMPARISON STUDY: Abdomen and pelvis CT 01/10/2019. FINDINGS: The lung bases are clear. There is a small fat-containing right-sided Bochdalek hernia. No pneumoperitoneum. No pneumatosis. No fractures within the visualized osseous structures. Mild circumf erential thickening of the distal esophagus, unchanged. There is a trace right pleural effusion. Incr ease in size in the anterior diaphragmatic lymph node which measures 2.9 x 1.3 cm. Left-sided pneumob crystal persists. Mild right intrahepatic bile duct dilatation remains unchanged. There is a new multise ptated hypodense lesion within the right hepatic lobe which measures 4 cm. This likely represents an abscess. Subtle nodular contour to the liver remains unchanged. The spleen remains enlarged. Dilated splenic vein with perisplenic varices persists consistent with portal hypertension. The main portal v ein remains patent. Normal caliber abdominal aorta. No retroperitoneal lymphadenopathy. The adrenal g lands, pancreas are unremarkable. Focal scarring within the upper pole the right kidney. Subcentimete r hypodense renal lesions remain unchanged. These favor cysts. The bladder is unremarkable. No pelvic free fluid. A few mildly enlarged pericardial lymph nodes have also slightly increased in size. No b owel wall thickening or obstruction. Normal appendix. Prior small bowel anastomosis within the right upper quadrant. IMPRESSION: 1. Interval development of a 4 cm multiseptated hypodense lesion within the right hepatic lobe. This likely represents an abscess. 2. Nodular contour to the liver, unchanged. This could represent underlying fibrosis/cirrhosis. 3. Status post liver transplant. 4. No change in the portal hypertension with splenomegaly. 5. Trace right pleural effusion. 6. Increase in the mild pericardial and anterior diaphragmatic lymphadenopathy. This is nonspecific b ut could be related to the suspected hepatic abscess. 7. Additional findings as described above. ACT 112: Negative or not required by law. Electronically signed by: Akin Redd M.D. 01/06/2021 8:10 AM
[2021-01-06] MEDS ORDERED: MoRPHine SULFATE 2 MG/ML CARP IV STA ×2 (08:48→13:34)
[2021-01-06] MEDS ORDERED: ENOXAPARIN INJ 40 MG/0.4 ML SYR SQ SCH (09:00)
[2021-01-06] MEDS ORDERED: TACROLIMUS 1 MG CAP PO SCH ×2 (09:00→21:00)
[2021-01-06] MEDS ORDERED: CEFEPIME 2,000 MG in SYRINGE 0 ML IV SCH (09:00)
--- NOTE | 2021-01-06 09:07 | Hospitalist Progress Note ---
Date of Service January 06, 2021 Assessment & Plan (1) Sepsis: (2) Gram-negative bacteremia: (3) Hepatic abscess: (4) History of liver transplant: (5) Immunocompromised: A 30-year-old male with history of liver transplant, who comes with sepsis. 1. Sepsis: History of bacteremia and cholangitis in the past. COVID is negative, flu PCR negative. Preliminary report in the CAT scan is showing possible hepatic abscess. ER talked to the transplant center, Dr. Brandt and was advised to keep the patient in the hospital overnight and stabilize him and transfer him next day for IR. Bacteremia - Gram negative 2 out of 2 ER gave daptomycin and Cefepime Currently on Daptomycin and zosyn Received 2L of IVF in ER Continued IV fluids at 125 mL per hour. Pt continues to be febrile as of this morning, tachycardia improved in low 100s. Pt reports feeling slightly better. Contacted [facility] and discussed with Dr. Brandt (liver transplant) and Dr. Lawler (hospitalist), plan for poss. IR at [facility] and liver consult. 2. History of liver transplant, on Prograf. Follow up with hepatology. 3. History of hypertension, currently not taking any medications.Will monitor. 4. History of gout, currently not taking any medications. DVT prophylaxis, sequential compression devices for now, Lovenox. Admission and Anticipated Discharge Date Admission Date: January 05, 2021 Subjective Pt seen in follow up of sepsis/ hepatic abscess, bacteremia Feeling slightly better today Temp - still febrile at 28.1C this AM. tachycardia better low 100s Blood cultx - positive for Gram negat. bacili Final read - concerning for liver abscess Dr. Brandt contacted (liver transplant in [place]) and hospitalist Dr. Lawler - plan for likely IR and hepatology consult at [facility] , plan to transfer pt Images to be sent via PACS now Review of Systems Review of Systems: All systems reviewed & are unremarkable except as noted in HPI & below Constitutional: + fever, + chills and + malaise body ache Respiratory: no cough and no dyspnea Cardiovascular: no chest pain and no palpitations Gastrointestinal: + nausea; no abdominal pain and no vomiting Physical Exam Physical Exam: GENERAL: The patient is of moderate build. The patient is not in acute distress. HEENT: Pupils equal, round, and reactive to light. Oral mucosa moist. NECK: No JVD, no neck masses. Supple, no neck stiffness. CARDIOVASCULAR: S1, S2 heard. + Tachycardia. No murmurs. RESPIRATORY SYSTEM: Normal AP diameter. No accessory muscle use. No wheezing, no crackles. ABDOMEN: Soft, bowel sounds present, nontender. No distention. NEURO: alert and oriented x3, answering questions appropriately, moves extremities EXTREMITIES: No edema, no erythema. Results & Data Results & Data ([facility]) Vital Signs (Past 12 Hours) Vital Signs Temp Pulse Pulse Resp BP BP Pulse Ox 01/06/21 07:43 38.1 C H 114 H 18 159/85 H 97 01/06/21 04:25 37.3 C 101 H 127/64 97 01/06/21 04:23 100 H 01/05/21 23:44 37.1 C 106 H 14 143/88 H 98 01/05/21 22:49 94 H 20 139/83 94 01/05/21 22:45 98 01/05/21 22:31 97 01/05/21 22:30 132/74 97 01/05/21 22:15 97 01/05/21 22:01 97 01/05/21 22:00 132/74 96 01/05/21 21:58 38.2 C H 01/05/21 21:49 96 01/05/21 21:31 115 H 14 96 01/05/21 21:30 114 H 17 134/81 96 01/05/21 21:15 117 H 15 97 Laboratory Results 01/06/21 01/06/21 01/06/21 Range/Units 06:20 05:35 05:35 WBC (4.8-10.8) K/uL RBC (4.7-6.1) M/uL Hgb (14.0-18.0) g/dL Hct (42-52) % MCV (80-100) fL MCH (25-34) pg MCHC (32-36) g/dL RDW Std Deviation (36.4-46.3) fL RDW Coeff of Emre (11.5-14.5) % Plt Count (130-400) K/uL MPV (7.4-10.4) fL Immature Gran % (Auto) % Neut % (Auto) % Lymph % (Auto) % Desha % (Auto) % Eos % (Auto) % Baso % (Auto) % Neut # (Auto) (1.4-6.5) K/uL Lymph # (Auto) (1.2-3.4) K/uL Desha # (Auto) (0.11-0.59) K/uL Eos # (Auto) (0-0.5) K/uL Baso # (Auto) (0-0.2) K/uL Immature Gran # (Auto) (0.00-0.02) K/uL PT (9.0-12.0) Seconds INR (0.9-1.1) APTT (21.0-31.0) Seconds PTT Ratio Sodium 138 (136-145) mmol/L Potassium 3.6 (3.5-5.1) mmol/L Chloride 106 (98-107) mmol/L Carbon Dioxide 22 (21-32) mmol/L Anion Gap 10.0 (3-11) BUN 24 H (7-18) mg/dl Creatinine 1.40 (0.6-1.4) mg/dl Est Cr Clr Drug Dosing 93.4 ml/min Est GFR ( Amer) 77.6 Est GFR (Non-Af Amer) 66.9 BUN/Creatinine Ratio 17.0 (10-20) Glucose 118 H (70-99) mg/dl Estimat Average Glucose 85 mg/dl Hemoglobin A1c 4.6 (4.5-5.6) % Lactate (0.4-2.0) mmol/L Calcium 8.8 (8.5-10.1) mg/dl Magnesium 2.0 (1.8-2.4) mg/dl Total Bilirubin (0.2-1) mg/dl AST (15-37) U/L ALT (12-78) U/L Alkaline Phosphatase (45-117) U/L Ammonia (11-32) umol/L Troponin I (0-0.045) ng/ml Total Protein (6.4-8.2) gm/dl Albumin (3.4-5.0) gm/dl Globulin (2.5-4.0) gm/dl Albumin/Globulin Ratio (0.9-2) Procalcitonin (0-0.5) ng/ml Urine Color Dark Yellow Urine Appearance Clear (Clear) Urine pH 5.0 (4.5-7.5) Ur Specific [place] 1.037 H (1.000-1.030) Urine Protein 1+ H (Negative) Urine Glucose (UA) Negative (Negative) Urine Ketones Trace H (Negative) Urine Blood Negative (Negative) Urine Nitrite Negative (Negative) Urine Bilirubin Negative (Negative) Urine Urobilinogen Negative (Negative) Ur Leukocyte Esterase Negative (Negative) Urine WBC (Auto) 1-5 (0-5) /hpf Urine RBC (Auto) 5-10 H (0-4) /hpf U Hyaline Cast (Auto) 1-5 (0-5) /lpf U Epithel Cells (Auto) 10-20 H (0-5) /lpf Urine Bacteria (Auto) Negative (Negative) COVID-19 Eval Order SARS-CoV-2 (PCR) (Negative) Influenza Type A (PCR) (Neg) Influenza Type B (PCR) (Neg) RSV (RT-PCR) (Neg) 01/06/21 01/05/21 01/05/21 Range/Units 05:35 20:25 20:07 WBC 6.56 (4.8-10.8) K/uL RBC 4.08 L (4.7-6.1) M/uL Hgb 11.6 L (14.0-18.0) g/dL Hct 32.7 L (42-52) % MCV 80.1 (80-100) fL MCH 28.4 (25-34) pg MCHC 35.5 (32-36) g/dL RDW Std Deviation 41.1 (36.4-46.3) fL RDW Coeff of Emre 13.9 (11.5-14.5) % Plt Count 104 L (130-400) K/uL MPV 11.5 H (7.4-10.4) fL Immature Gran % (Auto) 0.2 % Neut % (Auto) 82.8 % Lymph % (Auto) 9.6 % Desha % (Auto) 7.2 % Eos % (Auto) 0.2 % Baso % (Auto) 0.0 % Neut # (Auto) 5.44 (1.4-6.5) K/uL Lymph # (Auto) 0.63 L (1.2-3.4) K/uL Desha # (Auto) 0.47 (0.11-0.59) K/uL Eos # (Auto) 0.01 (0-0.5) K/uL Baso # (Auto) 0.00 (0-0.2) K/uL Immature Gran # (Auto) 0.01 (0.00-0.02) K/uL PT (9.0-12.0) Seconds INR (0.9-1.1) APTT (21.0-31.0) Seconds PTT Ratio Sodium (136-145) mmol/L Potassium (3.5-5.1) mmol/L Chloride (98-107) mmol/L Carbon Dioxide (21-32) mmol/L Anion Gap (3-11) BUN (7-18) mg/dl Creatinine (0.6-1.4) mg/dl Est Cr Clr Drug Dosing ml/min Est GFR ( Amer) Est GFR (Non-Af Amer) BUN/Creatinine Ratio (10-20) Glucose (70-99) mg/dl Estimat Average Glucose mg/dl Hemoglobin A1c (4.5-5.6) % Lactate 1.6 (0.4-2.0) mmol/L Calcium (8.5-10.1) mg/dl Magnesium (1.8-2.4) mg/dl Total Bilirubin (0.2-1) mg/dl AST (15-37) U/L ALT (12-78) U/L Alkaline Phosphatase (45-117) U/L Ammonia < 10.0 L (11-32) umol/L Troponin I (0-0.045) ng/ml Total Protein (6.4-8.2) gm/dl Albumin (3.4-5.0) gm/dl Globulin (2.5-4.0) gm/dl Albumin/Globulin Ratio (0.9-2) Procalcitonin (0-0.5) ng/ml Urine Color Urine Appearance (Clear) Urine pH (4.5-7.5) Ur Specific [place] (1.000-1.030) Urine Protein (Negative) Urine Glucose (UA) (Negative) Urine Ketones (Negative) Urine Blood (Negative) Urine Nitrite (Negative) Urine Bilirubin (Negative) Urine Urobilinogen (Negative) Ur Leukocyte Esterase (Negative) Urine WBC (Auto) (0-5) /hpf Urine RBC (Auto) (0-4) /hpf U Hyaline Cast (Auto) (0-5) /lpf U Epithel Cells (Auto) (0-5) /lpf Urine Bacteria (Auto) (Negative) COVID-19 Eval Order SARS-CoV-2 (PCR) (Negative) Influenza Type A (PCR) (Neg) Influenza Type B (PCR) (Neg) RSV (RT-PCR) (Neg) 01/05/21 01/05/21 01/05/21 Range/Units 20:07 20:07 20:07 WBC (4.8-10.8) K/uL RBC (4.7-6.1) M/uL Hgb (14.0-18.0) g/dL Hct (42-52) % MCV (80-100) fL MCH (25-34) pg MCHC (32-36) g/dL RDW Std Deviation (36.4-46.3) fL RDW Coeff of Emre (11.5-14.5) % Plt Count (130-400) K/uL MPV (7.4-10.4) fL Immature Gran % (Auto) % Neut % (Auto) % Lymph % (Auto) % Desha % (Auto) % Eos % (Auto) % Baso % (Auto) % Neut # (Auto) (1.4-6.5) K/uL Lymph # (Auto) (1.2-3.4) K/uL Desha # (Auto) (0.11-0.59) K/uL Eos # (Auto) (0-0.5) K/uL Baso # (Auto) (0-0.2) K/uL Immature Gran # (Auto) (0.00-0.02) K/uL PT 10.4 (9.0-12.0) Seconds INR 1.0 (0.9-1.1) APTT 24.4 (21.0-31.0) Seconds PTT Ratio 0.9 Sodium 133 L (136-145) mmol/L Potassium 3.6 (3.5-5.1) mmol/L Chloride 98 (98-107) mmol/L Carbon Dioxide 27 (21-32) mmol/L Anion Gap 8.0 (3-11) BUN 29 H (7-18) mg/dl Creatinine 1.61 H (0.6-1.4) mg/dl Est Cr Clr Drug Dosing 91.5 ml/min Est GFR ( Amer) 65.5 Est GFR (Non-Af Amer) 56.5 BUN/Creatinine Ratio 18.2 (10-20) Glucose 121 H (70-99) mg/dl Estimat Average Glucose mg/dl Hemoglobin A1c (4.5-5.6) % Lactate (0.4-2.0) mmol/L Calcium 10.0 (8.5-10.1) mg/dl Magnesium 2.1 (1.8-2.4) mg/dl Total Bilirubin 3.1 H (0.2-1) mg/dl AST 26 (15-37) U/L ALT 69 (12-78) U/L Alkaline Phosphatase 156 H (45-117) U/L Ammonia (11-32) umol/L Troponin I < 0.015 (0-0.045) ng/ml Total Protein 8.9 H (6.4-8.2) gm/dl Albumin 3.5 (3.4-5.0) gm/dl Globulin 5.4 H (2.5-4.0) gm/dl Albumin/Globulin Ratio 0.6 L (0.9-2) Procalcitonin 7.55 H (0-0.5) ng/ml Urine Color Urine Appearance (Clear) Urine pH (4.5-7.5) Ur Specific [place] (1.000-1.030) Urine Protein (Negative) Urine Glucose (UA) (Negative) Urine Ketones (Negative) Urine Blood (Negative) Urine Nitrite (Negative) Urine Bilirubin (Negative) Urine Urobilinogen (Negative) Ur Leukocyte Esterase (Negative) Urine WBC (Auto) (0-5) /hpf Urine RBC (Auto) (0-4) /hpf U Hyaline Cast (Auto) (0-5) /lpf U Epithel Cells (Auto) (0-5) /lpf Urine Bacteria (Auto) (Negative) COVID-19 Eval Order SARS-CoV-2 (PCR) (Negative) Influenza Type A (PCR) (Neg) Influenza Type B (PCR) (Neg) RSV (RT-PCR) (Neg) 01/05/21 01/05/21 01/05/21 Range/Units 20:07 20:05 20:05 WBC 8.30 (4.8-10.8) K/uL RBC 4.74 (4.7-6.1) M/uL Hgb 13.9 L (14.0-18.0) g/dL Hct 37.7 L (42-52) % MCV 79.5 L (80-100) fL MCH 29.3 (25-34) pg MCHC 36.9 H (32-36) g/dL RDW Std Deviation 39.7 (36.4-46.3) fL RDW Coeff of Emre 13.6 (11.5-14.5) % Plt Count 159 (130-400) K/uL MPV 11.5 H (7.4-10.4) fL Immature Gran % (Auto) 0.2 % Neut % (Auto) 89.7 % Lymph % (Auto) 4.3 % Desha % (Auto) 5.7 % Eos % (Auto) 0.1 % Baso % (Auto) 0.0 % Neut # (Auto) 7.44 H (1.4-6.5) K/uL Lymph # (Auto) 0.36 L (1.2-3.4) K/uL Desha # (Auto) 0.47 (0.11-0.59) K/uL Eos # (Auto) 0.01 (0-0.5) K/uL Baso # (Auto) 0.00 (0-0.2) K/uL Immature Gran # (Auto) 0.02 (0.00-0.02) K/uL PT (9.0-12.0) Seconds INR (0.9-1.1) APTT (21.0-31.0) Seconds PTT Ratio Sodium (136-145) mmol/L Potassium (3.5-5.1) mmol/L Chloride (98-107) mmol/L Carbon Dioxide (21-32) mmol/L Anion Gap (3-11) BUN (7-18) mg/dl Creatinine (0.6-1.4) mg/dl Est Cr Clr Drug Dosing ml/min Est GFR ( Amer) Est GFR (Non-Af Amer) BUN/Creatinine Ratio (10-20) Glucose (70-99) mg/dl Estimat Average Glucose mg/dl Hemoglobin A1c (4.5-5.6) % Lactate (0.4-2.0) mmol/L Calcium (8.5-10.1) mg/dl Magnesium (1.8-2.4) mg/dl Total Bilirubin (0.2-1) mg/dl AST (15-37) U/L ALT (12-78) U/L Alkaline Phosphatase (45-117) U/L Ammonia (11-32) umol/L Troponin I (0-0.045) ng/ml Total Protein (6.4-8.2) gm/dl Albumin (3.4-5.0) gm/dl Globulin (2.5-4.0) gm/dl Albumin/Globulin Ratio (0.9-2) Procalcitonin (0-0.5) ng/ml Urine Color Urine Appearance (Clear) Urine pH (4.5-7.5) Ur Specific [place] (1.000-1.030) Urine Protein (Negative) Urine Glucose (UA) (Negative) Urine Ketones (Negative) Urine Blood (Negative) Urine Nitrite (Negative) Urine Bilirubin (Negative) Urine Urobilinogen (Negative) Ur Leukocyte Esterase (Negative) Urine WBC (Auto) (0-5) /hpf Urine RBC (Auto) (0-4) /hpf U Hyaline Cast (Auto) (0-5) /lpf U Epithel Cells (Auto) (0-5) /lpf Urine Bacteria (Auto) (Negative) COVID-19 Eval Order CovFluRsv at [facility] SARS-CoV-2 (PCR) NEGATIVE (Negative) Influenza Type A (PCR) Negative (Neg) Influenza Type B (PCR) Negative (Neg) RSV (RT-PCR) Negative (Neg) Medications Administered Current Inpatient Medications Acetaminophen (Acetaminophen 325 Mg Tab) 650 mg PO Q4H PRN PRN Reason: Pain or Fever Stop: 02/04/21 23:14 Last Admin: 01/06/21 07:56 Dose: 650 mg Documented by: Enoxaparin Sodium (Enoxaparin Inj 40 Mg/0.4 Ml Syr) 40 mg SQ Q24H [facility] Stop: 02/05/21 08:59 Last Admin: 01/06/21 07:58 Dose: 40 mg Documented by: Sodium Chloride (Nss 1000ml) 1,000 mls @ 125 mls/hr IV .Q8H [facility] Stop: 02/04/21 23:14 Last Admin: 01/06/21 06:27 Dose: 125 mls/hr Documented by: Daptomycin 475 mg/ Syringe 9.5 mls @ 4.75 mls/min IV Q24H [facility]; Protocol Stop: 01/06/21 20:01 Piperacillin Sod/Tazobactam (Sod 3.375 gm/ Dextrose) 115 mls @ 28.75 mls/hr IV Q8H [facility]; Protocol Stop: 01/16/21 11:59 Miscellaneous Information (Daptomycin Consult Active) 1 ea N/A UD PRN PRN Reason: Consult Stop: 02/04/21 19:51 Miscellaneous Information (Piperacill/Tazobac Consult Active) 1 ea N/A UD PRN PRN Reason: Consult Stop: 02/05/21 06:17 Nitroglycerin (Nitroglycerin Sl 0.4 Mg/Tab Tab) 0.4 mg SL UD PRN PRN Reason: Chest Pain Stop: 02/04/21 23:14 Ondansetron HCl (Ondansetron Inj 2 Mg/Ml 2 Ml Vial) 4 mg IV Q6H PRN PRN Reason: Nausea Stop: 02/04/21 23:14 Tacrolimus (Tacrolimus 1 Mg Cap) 1 mg PO QAM [facility] Stop: 02/05/21 08:59 Last Admin: 01/06/21 07:57 Dose: 1 mg Documented by: Tacrolimus (Tacrolimus 1 Mg Cap) 2 mg PO PM [facility] Stop: 02/05/21 20:59 (1) Sepsis Acute renal failure type: unspecified Sepsis acute organ dysfunction status: with acute organ dysfunction Sepsis type: sepsis due to unspecified organism Severe sepsis acute organ dysfunction type: acute renal failure Severe sepsis shock status: without septic shock Qualified Code(s): A41.9 - Sepsis, unspecified organism; R65.20 - Severe sepsis without septic shock; N17.9 - Acute kidney failure, unspecified
[2021-01-06] MEDS ORDERED: PIPERACILLIN/TAZOBACTAM 3.375 GM in DEXTROSE 5% 100 ML IV SCH (12:00)
[2021-01-06] MEDS ORDERED: PIPERACILLIN/TAZOBACTAM 4.5 GM in DEXTROSE 5% 100 ML IV SCH (12:00)
--- NOTE | 2021-01-06 13:44 | Discharge Summary ---
Date of Service January 06, 2021 Admission HPI Per Admitting Provider A 30-year-old male with past medical history significant for s/p Liver transplant,history of cholangitis with transplant of the liver, biliary anastomotic stenosis, history of disseminated varicella, gout, hypertension, but no longer on medications. Presents with fever going on since last Sunday night. He says maximum temperature 102 degrees. He is having body aches, headache, neck pain and fevers. Denies any cough, no shortness of breath, no runny nose, no sore throat, no loss of sense of smell or taste. Lives with mom. No COVID exposure. Denies any blurred vision, no double vision, no earache, no runny nose. He says he was nauseous and vomiting and appetite is down, no abdominal pain, no chest pain, no shortness of breath, no diarrhea or constipation, no blood in stool or black stools. Urine is dark because he seems to be dehydrated. Denies any hematuria or burning micturition. No rash, no swelling in the legs. Admission Exam Per Admitting Provider GENERAL: The patient is of moderate build. The patient is not in acute distress. VITAL SIGNS: Temperature 38.2; pulse when he came in was in 150s, currently 94; blood pressure 139/83; oxygen 94% on room air. HEENT: Pupils equal, round, and reactive to light. Oral mucosa moist. NECK: No JVD, no neck masses. Supple, no neck stiffness. CARDIOVASCULAR: S1, S2 heard. Tachycardia. No murmurs. RESPIRATORY SYSTEM: Normal AP diameter. No accessory muscle use. No wheezing, no crackles. ABDOMEN: Soft, bowel sounds present, nontender. No distention. CENTRAL NERVOUS SYSTEM: Cranial nerves II-XII grossly intact. Nonfocal. EXTREMITIES: No edema, no erythema. Principal Diagnosis Sepsis, Gram negative bacteremia Hepatic abscess Hx of liver transplant, immunocompromised Discharge Exam GENERAL: The patient is of moderate build. The patient is not in acute distress. HEENT: Pupils equal, round, and reactive to light. Oral mucosa moist. NECK: No JVD, no neck masses. Supple, no neck stiffness. CARDIOVASCULAR: S1, S2 heard. + Tachycardia. No murmurs. RESPIRATORY SYSTEM: Normal AP diameter. No accessory muscle use. No wheezing, no crackles. ABDOMEN: Soft, bowel sounds present, nontender. No distention. NEURO: alert and oriented x3, answering questions appropriately, moves extremities EXTREMITIES: No edema, no erythema. Discharge Data Allergies Allergy/AdvReac Type Severity Reaction Status Date / Time albuterol Allergy Mild HIVES Verified 01/05/21 20:39 Consultations 01/05/21 21:44 ED Decision to Admit Stat 01/05/21 23:15 Consult Case Management - Discharge Planning Routine 01/06/21 09:30 Burn CD for patient Stat Ordered Studies 01/05/21 19:54 CT abd pelvis IV con only Urgent FINDINGS: The lung bases are clear. There is a small fat-containing right-sided Bochdalek hernia. No pneumoperitoneum. No pneumatosis. No fractures within the visualized osseous structures. Mild circumferential thickening of the distal esophagus, unchanged. There is a trace right pleural effusion. Increase in size in the anterior diaphragmatic lymph node which measures 2.9 x 1.3 cm. Left-sided pneumobilia persists. Mild right intrahepatic bile duct dilatation remains unchanged. There is a new multiseptated hypodense lesion within the right hepatic lobe which measures 4 cm. This likely represents an abscess. Subtle nodular contour to the liver remains unchanged. The spleen remains enlarged. Dilated splenic vein with perisplenic varices persists consistent with portal hypertension. The main portal vein remains patent. Normal caliber abdominal aorta. No retroperitoneal lymphadenopathy. The adrenal glands, pancreas are unremarkable. Focal scarring within the upper pole the right kidney. Subcentimeter hypodense renal lesions remain unchanged. These favor cysts. The bladder is unremarkable. No pelvic free fluid. A few mildly enlarged pericardial lymph nodes have also slightly increased in size. No bowel wall thickening or obstruction. Normal appendix. Prior small bowel anastomosis within the right upper quadrant. IMPRESSION: 1. Interval development of a 4 cm multiseptated hypodense lesion within the right hepatic lobe. This likely represents an abscess. 2. Nodular contour to the liver, unchanged. This could represent underlying fibrosis/cirrhosis. 3. Status post liver transplant. 4. No change in the portal hypertension with splenomegaly. 5. Trace right pleural effusion. 6. Increase in the mild pericardial and anterior diaphragmatic lymphadenopathy. This is nonspecific but could be related to the suspected hepatic abscess. 7. Additional findings as described above. Hospital Course (1) Sepsis: (2) Gram-negative bacteremia: (3) Hepatic abscess: (4) History of liver transplant: (5) Immunocompromised: A 30-year-old male with history of liver transplant, who comes with sepsis. 1. Sepsis: History of bacteremia and cholangitis in the past. COVID is negative, flu PCR negative. Preliminary report in the CAT scan is showing possible hepatic abscess. ER talked to the transplant center, Dr. Brandt and was advised to keep the patient in the hospital overnight and stabilize him and transfer him next day for IR. Bacteremia - Gram negative bacilli 2 out of 2 (on 01/05/21) ER gave daptomycin and Cefepime Currently on Daptomycin and zosyn Received 2L of IVF in ER Continued IV fluids at 125 mL per hour. Pt continues to be febrile as of this morning, tachycardia improved in low 100s. Pt reports feeling slightly better. Contacted [facility] and discussed with Dr. Brandt (liver transplant) and Dr. Lawler (hospitalist), plan for poss. IR at [facility] and liver consult. 2. History of liver transplant, on Prograf. Follow up with hepatology. 3. History of hypertension, currently not taking any medications.Will monitor. 4. History of gout, currently not taking any medications. DVT prophylaxis, sequential compression devices for now, Lovenox. Total Time Total Time Spent Total Time Spent (In Minutes): 37 Total Time Includes: Examination of the Patient, Discharge Planning, Medication Reconciliation and Communication With Other Providers Discharge Plan Discharge Items Patient Disposition: Transfer Acute Care Hospital Reason For Visit: FEVER Discharge Diagnosis: Sepsis, Gram negative bacteremia Hepatic abscess Hx of liver transplant, immunocompromised Condition on Discharge: Serious Activity: Per Instructions section Non-emergency contact: Hospitalist and Specialist Call non-emergency contact if: you have any medication questions and your symptoms worsen Follow-up/Referrals: Deondre Zavala MD [Primary Care Provider] - Diet: Other - See Diet Comment Addtl Attending Provider Instructions: Pt to be transferred to [facility] for further care, pt in need of IR for liver abscess drainage, and liver team consultation. Transfer discussed with Dr. Brandt (liver transplant) and Dr. Lawler (hospitalist - admitting physician). Pending Studies at Discharge: Yes Studies:: Blood culture - final results Stand-Alone Forms: My [facility] Skilled Items Patient informed of condition?: Yes DNR: No Discharge Level of Care: Other Communicable Disease: No Discharge Prognosis: Other Lines: Peripheral IV Urinary Catheter: No Medications and DC Order Prescriptions: Continued tacrolimus [Prograf] 1 mg Capsule 1 mg PO USEASDIRECTD RF: 0 acetaminophen [Tylenol Extra Strength] 500 mg Tablet 500 - 1,000 mg PO Q6H PRN (Reason: Fever Or Pain) RF: 0 ibuprofen 200 mg Tablet 400 mg PO Q6H PRN (Reason: Fever Or Pain) RF: 0 Discharge Orders: Discharge Order (Routine); Ordered 01/06/21 Ordered By: Roly Esparza Admission Data Admit Date/Time: 01/05/21 22:23 Attending Provider: Roly Esparza Admit Provider: Norris Goyal Primary Care Provider: Deondre Zavala Other Providers: Norris Goyal
[2021-01-06] MEDS ORDERED: DAPTOmycin 475 MG in SYRINGE 0 ML IV SCH (20:00)
--- NOTE | 2021-01-07 06:03 | Electrocardiogram Report ---
Test Reason : Blood Pressure : / mmHG Vent. Rate : 151 BPM Atrial Rate : 151 BPM P-R Int : 124 ms QRS Dur : 078 ms QT Int : 328 ms P-R-T Axes : 042 -02 053 degrees QTc Int : 519 ms Sinus tachycardia Otherwise normal ECG When compared with ECG of 10-JAN-2019 15:05, No significant change was found Confirmed by Greg Parisi ([id number]) on 01/07/2021 6:02:41 AM Referred By: REFERRED SELF Confirmed By:Greg Parisi
--- NOTE | 2021-01-07 06:03 | Electrocardiogram Report ---
Test Reason : Blood Pressure : / mmHG Vent. Rate : 138 BPM Atrial Rate : 138 BPM P-R Int : 126 ms QRS Dur : 080 ms QT Int : 282 ms P-R-T Axes : 048 -02 047 degrees QTc Int : 427 ms Sinus tachycardia Otherwise normal ECG When compared with ECG of 05-JAN-2021 19:59, No significant change was found Confirmed by Greg Parisi ([id number]) on 01/07/2021 6:02:57 AM Referred By: REFERRED SELF Confirmed By:Greg Parisi
== END 2021-01-06 16:42 | disposition short-term general hospital (02) | DRG 871 ==
LOC: ED 19:34 → 2E 22:23

== ENCOUNTER 2021-08-01 02:19 | Inpatient (IN) ==
[2021-08-01] MEDS ORDERED: PIPERACILL/TAZOBAC CONSULT ACTIVE PRN (03:22)
[2021-08-01] MEDS ORDERED: PIPERACILLIN/TAZOBACTAM 4.5 GM/120 ML BAG IV ONE (03:22)
[2021-08-01] MEDS ORDERED: SODIUM CHLORIDE 0.9% 1000ML 1,000 ML IV SCH (03:30)
--- NOTE | 2021-08-01 03:32 | Emergency Department Note ---
History of Present Illness General Chief complaint: Fever Stated complaint: FEVER,BODY ACHES Time Seen by Provider: 08/01/21 03:21 History of Present Illness Maximum Pain Intensity: 4 This 31-year-old liver transplant on Prograf presents to the ER complaining of fever body aches and not feeling well today Location: Generalized Quality: Achy Severity: Moderate Duration: Today Timing: Today Context: Patient was concerned and came in Modifying factors: better with Tylenol; worse with activity patient is not vaccinated for COVID-19. Patient complains of body aches and pains, fatigue, abdominal discomfort headache and generalized malaise. Patient denies tobacco alcohol or drug use. Patient denies chest pain, dyspnea, vomiting, diarrhea, dark urine. 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 Ariza note from 05/13/2015: "He is status post a OLT at [facility] in [place] x2 (1992 for A1AT and 1995 for chronic rejection). He has had mild chronic rejection as late at 2008. At that time, per Dr. 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 Tang's pediatric GI follow up. 02/09/13 admission for acute liver failure insufficiency, sudden onset with fever, fatigue: 02/10/13 liver bx showed Acute cholangitis 02/13/13 cholangiogram Imaging demonstrated a severe stricture at the biliary /bowel anastomotic site. There was moderate to severe biliary ducts dilatation on th e cholangiogram. The anastomotic stenosis was negotiated and an internal external biliary drain was placed in appropriate position 02/20/13 cholangiogram IMAGING FINDINGS: Initial images from the existing biliary catheter demonstrated the catheter with the pigtail loop in satisfactory position. Cholangiogram demonstrated mild biliary ductal dilatation with contrast flow noted in the bowel. A new 8 Czech biliary catheter was placed and the pigtail loop was appropriately formed in the bowel loop and the catheter sideholes were appropriately placed proximal to the biliary obstruction for adequate drainage. Mid 03-01, saw Dr. Lindo in clinic today, the patient had the biliary tube capped for 2 weeks with no symptoms. He was seen by transplant surgery on 03-11-13, got admitted to [facility] from 03-13-13 to 03-19-13 for disseminated varicella. He underwent CHOLANGIOGRAM BALLOON DILATATION AND CONVERSION OF EXT BILIARY DRAINAGE TO I/E BILIARY CATHETER on 03-24-13 by IR. He is taking prograf 2mg in AM and 3 mg in PM. Pt had cholangiogram on 04-22-13 that showed PERSISTENT MODERATEY SEVERE CHOLEDOCHO-ENTERIC ANASTOMOTIC STRICTURE. UPSIZED EXISTING 10-FR BILIARY DRAIN TO 12-FR INTERNAL EXTERNAL BILIARY DRAIN--> TUBE LEFT CAPPED Pt was scheduled for I/E biliary catheter exchange and upsizing to 14 Fr on 08-27-13. Last time Rt biliary catheter was changed on 10-21-13, there was a brisk flow of contrast through the catheter. Finally, pt's I/E biliary catheter was pulled out on 12-19-13. Review of labs show that T.bili is down to 2.6, FK levels (05-26-14): 4.2, Cr increased to 1.6 on tacrolimus 2 mg qam, 3 mg q pm. 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) Surgical History (Updated 08/01/21 @ 05:59 by Karen Duran PA-C) History of tonsillectomy and adenoidectomy History of tympanoplasty Family History Other No family history of disorders Social History Smoking Status: Never smoker Second Hand Exposure: No; Hx Alcohol Use: No Hx Substance Use: No Preferred Language: Urdu Communication Ability: Effective Electronic Game Developer Required: No Beliefs That Will Affect Care: None marital status: Single Current Living Situation: Family Feels Safe at Home: Yes Assistive Devices: None Review of Systems A total of 10 systems reviewed and were otherwise negative Physical Exam Vital Signs Vital Signs - 24 hr 08/01/21 02:22 08/01/21 03:55 08/01/21 04:00 Temperature 36.8 C 38.2 C H Temperature Source Temporal Artery Scan Oral Pulse Rate 102 H 100 H Respiratory Rate 22 16 Respiratory Effort / Characteristics Blood Pressure 160/124 H 169/118 H Blood Pressure Mean 136 135 Blood Pressure Position Sitting Pulse Oximetry 97 97 Oxygen Delivery Method Room Air Sepsis Recent Fever Within 48 Hours Yes Sepsis New/Unexplained Change in Mental Status N/A Sepsis Action Taken by Nursing No Action Required 08/01/21 04:07 08/01/21 04:28 08/01/21 05:05 Temperature 37.5 C Temperature Source Pulse Rate 89 97 H Respiratory Rate 20 20 18 Respiratory Effort / Characteristics Non-Labored Blood Pressure 164/101 H 161/104 H Blood Pressure Mean 122 123 Blood Pressure Position Pulse Oximetry 97 96 97 Oxygen Delivery Method Room Air Sepsis Recent Fever Within 48 Hours Sepsis New/Unexplained Change in Mental Status Sepsis Action Taken by Nursing VITALS: Vitals are noted on the nurse's note and reviewed by myself. Vital signs repeat temperature 100.4. GENERAL: White male mildly ill-appearing, in no acute distress SKIN: The skin was without rashes, erythema, edema, or bruising. There is no tenting of the skin. Capillary reflex less than 2 seconds. HEAD: Normocephalic atraumatic. EARS: External auditory canals clear, tympanic membranes pearly terry without erythema or effusion bilaterally. EYES: Pupils equal round and reactive to light and accommodation. Conjunctivae without injection, sclerae with icterus. Extraocular movements intact. NOSE: Patent, turbinates without inflammation or discharge. No sinus tenderness. MOUTH: Mucous membranes moist. Pharynx without erythema or exudate. Uvula midline. Airway patent. Tongue does not deviate. NECK: Supple without nuchal rigidity. No lymphadenopathy. No thyromegaly. Cervical spine is nontender. No JVD. HEART: Regular rate and rhythm LUNGS: Clear to auscultation bilaterally without wheezes, rales or rhonchi. No retractions or accessory muscle use. ABDOMEN: Positive bowel sounds x 4. Normal tympanic percussion. Soft, tender right upper quadrant, without masses or organomegaly. No guarding or rebound tenderness. No CVA tenderness MUSCULOSKELETAL: No muscle atrophy, erythema, or edema noted. NEURO: Patient was alert and oriented to person place and time. Normal sensation to light and sharp touch. No focal neurological deficits. Course Administered Medications Miscellaneous Information (Piperacill/Tazobac Consult Active) 1 ea N/A UD PRN PRN Reason: Consult Stop: 08/31/21 03:21 Last Admin: 08/01/21 05:18 Dose: 1 ea Documented by: [id number] Discontinued Medications Sodium Chloride (Nss 1000ml) 1,000 mls @ 999 mls/hr IV .Q1H1M TRENT Stop: 08/01/21 04:30 Last Infusion: 08/01/21 05:18 Dose: 0 mls/hr Documented by: [id number] Admin: 08/01/21 04:02 Dose: 999 mls/hr Documented by: [id number] Piperacillin Sod/Tazobactam Sod (Zosyn) 4.5 gm in 120 mls @ 240 mls/hr IV NOW ONE Stop: 08/01/21 03:51 Last Infusion: 08/01/21 05:33 Dose: 0 mls/hr Documented by: [id number] Infusion: 08/01/21 04:28 Dose: 0 mls/hr Documented by: [id number] Admin: 08/01/21 04:02 Dose: 240 mls/hr Documented by: [id number] Acetaminophen (Ofirmev) 1,000 mg in 100 mls @ 400 mls/hr IV NOW STA Stop: 08/01/21 04:20 Last Infusion: 08/01/21 05:18 Dose: 0 mls/hr Documented by: [id number] Admin: 08/01/21 04:28 Dose: 400 mls/hr Documented by: [id number] Ioversol (Optiray 320 100ml) 100 ml IV ONCE ONE Stop: 08/01/21 04:25 Last Admin: 08/01/21 04:24 Dose: 91 ml Documented by: [id number] Medical Decision Making Medical Records Attestation: I reviewed the patient's medical records. Home Medications Current Medication List: was personally reviewed by me Laboratory Data Attestation: I reviewed the patient's lab results. Result diagrams: 08/01/21 03:45 08/01/21 03:45 Lab Results 08/01/21 08/01/21 08/01/21 Range/Units 03:40 03:40 03:40 WBC (4.8-10.8) K/uL RBC (4.7-6.1) M/uL Hgb (14.0-18.0) g/dL Hct (42-52) % MCV (80-100) fL MCH (25-34) pg MCHC (32-36) g/dL RDW Std Deviation (36.4-46.3) fL RDW Coeff of Emre (11.5-14.5) % Plt Count (130-400) K/uL MPV (7.4-10.4) fL Immature Gran % (Auto) % Neut % (Auto) % Lymph % (Auto) % [place] % (Auto) % Eos % (Auto) % Baso % (Auto) % Neut # (Auto) (1.4-6.5) K/uL Lymph # (Auto) (1.2-3.4) K/uL [place] # (Auto) (0.11-0.59) K/uL Eos # (Auto) (0-0.5) K/uL Baso # (Auto) (0-0.2) K/uL Immature Gran # (Auto) (0.00-0.02) K/uL Platelet Estimate (Normal) PT (9.0-12.0) Seconds INR (0.9-1.1) APTT (21.0-31.0) Seconds PTT Ratio Sodium (136-145) mmol/L Potassium (3.5-5.1) mmol/L Chloride (98-107) mmol/L Carbon Dioxide (21-32) mmol/L Anion Gap (3-11) BUN (7-18) mg/dl Creatinine (0.6-1.4) mg/dl Est Cr Clr Drug Dosing ml/min Est GFR ( Amer) ml/min Est GFR (Non-Af Amer) ml/min BUN/Creatinine Ratio (10-20) Glucose (70-99) mg/dl Lactate (0.4-2.0) mmol/L Calcium (8.5-10.1) mg/dl Magnesium (1.8-2.4) mg/dl Total Bilirubin (0.2-1) mg/dl AST (15-37) U/L ALT (12-78) U/L Alkaline Phosphatase (45-117) U/L Troponin I (0-0.045) ng/ml Total Protein (6.4-8.2) gm/dl Albumin (3.4-5.0) gm/dl Globulin (2.5-4.0) gm/dl Albumin/Globulin Ratio (0.9-2) Procalcitonin (0-0.5) ng/ml Urine Color Yellow Urine Appearance Clear (Clear) Urine pH 6.5 (4.5-7.5) Ur Specific [place] 1.004 (1.000-1.030) Urine Protein Negative (Negative) Urine Glucose (UA) Negative (Negative) Urine Ketones Negative (Negative) Urine Blood Negative (Negative) Urine Nitrite Negative (Negative) Urine Bilirubin Negative (Negative) Urine Urobilinogen Negative (Negative) Ur Leukocyte Esterase Negative (Negative) Adenovirus (PCR) Not Detected (NotDetected) B. pertussis DNA (PCR) Not Detected (NotDetected) B.parapertussis DNA PCR Not Detected (NotDetected) C. pneumoniae DNA (PCR) Not Detected (NotDetected) Coronavirus OC43 (PCR) Not Detected (NotDetected) Coronavirus HKU1 (PCR) Not Detected (NotDetected) Coronavirus 229E (PCR) Not Detected (NotDetected) COVID-19 Eval Order RESPNP at [facility] SARS-CoV-2 (PCR) Not Detected (NotDetected) Coronavirus NL63 (PCR) Not Detected (NotDetected) Human Metapneumovir PCR Not Detected (NotDetected) Influenza Type A (PCR) Not Detected (NotDetected) Influenza Type B (PCR) Not Detected (NotDetected) M. pneumoniae (PCR) Not Detected (NotDetected) Parainfluenza 1 (PCR) Not Detected (NotDetected) Parainfluenza 2 (PCR) Not Detected (NotDetected) Parainfluenza 3 (PCR) Not Detected (NotDetected) Parainfluenza 4 (PCR) Not Detected (NotDetected) RSV (PCR) Not Detected (NotDetected) Entero/Rhino (PCR) Not Detected (NotDetected) 08/01/21 08/01/21 08/01/21 Range/Units 03:45 03:45 03:45 WBC 3.38 L (4.8-10.8) K/uL RBC 5.01 (4.7-6.1) M/uL Hgb 14.4 (14.0-18.0) g/dL Hct 38.3 L (42-52) % MCV 76.4 L (80-100) fL MCH 28.7 (25-34) pg MCHC 37.6 H (32-36) g/dL RDW Std Deviation 36.7 (36.4-46.3) fL RDW Coeff of Emre 13.4 (11.5-14.5) % Plt Count 96 L (130-400) K/uL MPV 10.0 (7.4-10.4) fL Immature Gran % (Auto) 0.6 % Neut % (Auto) 76.3 % Lymph % (Auto) 8.6 % [place] % (Auto) 14.2 % Eos % (Auto) 0.3 % Baso % (Auto) 0.0 % Neut # (Auto) 2.58 (1.4-6.5) K/uL Lymph # (Auto) 0.29 L (1.2-3.4) K/uL [place] # (Auto) 0.48 (0.11-0.59) K/uL Eos # (Auto) 0.01 (0-0.5) K/uL Baso # (Auto) 0.00 (0-0.2) K/uL Immature Gran # (Auto) 0.02 (0.00-0.02) K/uL Platelet Estimate Decreased L (Normal) PT 11.0 (9.0-12.0) Seconds INR 1.1 (0.9-1.1) APTT 28.2 (21.0-31.0) Seconds PTT Ratio 1.1 Sodium 137 (136-145) mmol/L Potassium 3.7 (3.5-5.1) mmol/L Chloride 104 (98-107) mmol/L Carbon Dioxide 24 (21-32) mmol/L Anion Gap 9.0 (3-11) BUN 19 H (7-18) mg/dl Creatinine 1.61 H (0.6-1.4) mg/dl Est Cr Clr Drug Dosing 81.7 ml/min Est GFR ( Amer) 65.1 ml/min Est GFR (Non-Af Amer) 56.1 ml/min BUN/Creatinine Ratio 11.6 (10-20) Glucose 108 H (70-99) mg/dl Lactate (0.4-2.0) mmol/L Calcium 8.8 (8.5-10.1) mg/dl Magnesium 1.8 (1.8-2.4) mg/dl Total Bilirubin 6.7 H (0.2-1) mg/dl AST 45 H (15-37) U/L ALT 99 H (12-78) U/L Alkaline Phosphatase 143 H (45-117) U/L Troponin I < 0.015 (0-0.045) ng/ml Total Protein 7.8 (6.4-8.2) gm/dl Albumin 4.0 (3.4-5.0) gm/dl Globulin 3.8 (2.5-4.0) gm/dl Albumin/Globulin Ratio 1.1 (0.9-2) Procalcitonin (0-0.5) ng/ml Urine Color Urine Appearance (Clear) Urine pH (4.5-7.5) Ur Specific [place] (1.000-1.030) Urine Protein (Negative) Urine Glucose (UA) (Negative) Urine Ketones (Negative) Urine Blood (Negative) Urine Nitrite (Negative) Urine Bilirubin (Negative) Urine Urobilinogen (Negative) Ur Leukocyte Esterase (Negative) Adenovirus (PCR) (NotDetected) B. pertussis DNA (PCR) (NotDetected) B.parapertussis DNA PCR (NotDetected) C. pneumoniae DNA (PCR) (NotDetected) Coronavirus OC43 (PCR) (NotDetected) Coronavirus HKU1 (PCR) (NotDetected) Coronavirus 229E (PCR) (NotDetected) COVID-19 Eval Order SARS-CoV-2 (PCR) (NotDetected) Coronavirus NL63 (PCR) (NotDetected) Human Metapneumovir PCR (NotDetected) Influenza Type A (PCR) (NotDetected) Influenza Type B (PCR) (NotDetected) M. pneumoniae (PCR) (NotDetected) Parainfluenza 1 (PCR) (NotDetected) Parainfluenza 2 (PCR) (NotDetected) Parainfluenza 3 (PCR) (NotDetected) Parainfluenza 4 (PCR) (NotDetected) RSV (PCR) (NotDetected) Entero/Rhino (PCR) (NotDetected) 08/01/21 08/01/21 Range/Units 03:45 03:45 WBC (4.8-10.8) K/uL RBC (4.7-6.1) M/uL Hgb (14.0-18.0) g/dL Hct (42-52) % MCV (80-100) fL MCH (25-34) pg MCHC (32-36) g/dL RDW Std Deviation (36.4-46.3) fL RDW Coeff of Emre (11.5-14.5) % Plt Count (130-400) K/uL MPV (7.4-10.4) fL Immature Gran % (Auto) % Neut % (Auto) % Lymph % (Auto) % [place] % (Auto) % Eos % (Auto) % Baso % (Auto) % Neut # (Auto) (1.4-6.5) K/uL Lymph # (Auto) (1.2-3.4) K/uL [place] # (Auto) (0.11-0.59) K/uL Eos # (Auto) (0-0.5) K/uL Baso # (Auto) (0-0.2) K/uL Immature Gran # (Auto) (0.00-0.02) K/uL Platelet Estimate (Normal) PT (9.0-12.0) Seconds INR (0.9-1.1) APTT (21.0-31.0) Seconds PTT Ratio Sodium (136-145) mmol/L Potassium (3.5-5.1) mmol/L Chloride (98-107) mmol/L Carbon Dioxide (21-32) mmol/L Anion Gap (3-11) BUN (7-18) mg/dl Creatinine (0.6-1.4) mg/dl Est Cr Clr Drug Dosing ml/min Est GFR ( Amer) ml/min Est GFR (Non-Af Amer) ml/min BUN/Creatinine Ratio (10-20) Glucose (70-99) mg/dl Lactate 0.8 (0.4-2.0) mmol/L Calcium (8.5-10.1) mg/dl Magnesium (1.8-2.4) mg/dl Total Bilirubin (0.2-1) mg/dl AST (15-37) U/L ALT (12-78) U/L Alkaline Phosphatase (45-117) U/L Troponin I (0-0.045) ng/ml Total Protein (6.4-8.2) gm/dl Albumin (3.4-5.0) gm/dl Globulin (2.5-4.0) gm/dl Albumin/Globulin Ratio (0.9-2) Procalcitonin 0.12 (0-0.5) ng/ml Urine Color Urine Appearance (Clear) Urine pH (4.5-7.5) Ur Specific [place] (1.000-1.030) Urine Protein (Negative) Urine Glucose (UA) (Negative) Urine Ketones (Negative) Urine Blood (Negative) Urine Nitrite (Negative) Urine Bilirubin (Negative) Urine Urobilinogen (Negative) Ur Leukocyte Esterase (Negative) Adenovirus (PCR) (NotDetected) B. pertussis DNA (PCR) (NotDetected) B.parapertussis DNA PCR (NotDetected) C. pneumoniae DNA (PCR) (NotDetected) Coronavirus OC43 (PCR) (NotDetected) Coronavirus HKU1 (PCR) (NotDetected) Coronavirus 229E (PCR) (NotDetected) COVID-19 Eval Order SARS-CoV-2 (PCR) (NotDetected) Coronavirus NL63 (PCR) (NotDetected) Human Metapneumovir PCR (NotDetected) Influenza Type A (PCR) (NotDetected) Influenza Type B (PCR) (NotDetected) M. pneumoniae (PCR) (NotDetected) Parainfluenza 1 (PCR) (NotDetected) Parainfluenza 2 (PCR) (NotDetected) Parainfluenza 3 (PCR) (NotDetected) Parainfluenza 4 (PCR) (NotDetected) RSV (PCR) (NotDetected) Entero/Rhino (PCR) (NotDetected) Imaging Data Attestation: I personally reviewed and interpreted this imaging study as follows: MDM Narrative Prior records/ancillary studies reviewed. Triage Nursing notes reviewed. Additional history obtained from nursing. The patient's history was concerning for fever, body aches and pains. Differential diagnosis: Etiologies such as sepsis, UTI, pneumonia, metabolic, electrolyte abnormalities, cardiac sources, intracerebral event, toxicologic, neurologic, as well as others were entertained. Physical examination: As above. Pertinent findings were fever. Vital signs reviewed and revealed fever. ER treatment provided: IV fluid resuscitation with Normal saline solution, 1000 mL bolus. Blood and urine cultures Antibiotics: Zosyn Prior blood culture was reviewed An order was placed for continuous cardiac monitoring. The monitor shows a rate of 60-1 50 with a sinus rhythm. On reassessment the patient vital signs improved. Diagnostics interpretation by me: ECG: Ordered for sepsis EKG: Normal sinus, normal intervals, no acute ST-T wave changes. Impression normal sinus rhythm interpreted by myself I think arrhythmia is unlikely. EKG shows normal sinus rhythm with no interval abnormalities such as QT prolongation or WPW. There are no findings to suggest Brugada syndrome. Cardiac monitoring in the emergency department reveals no tachycardic or bradycardic dysrhythmia. Hypertrophic cardiomyopathy was considered but there are no clear historical elements pointing toward this. EKG is not suggestive. The QRS voltage is not extremely large and there are no suggestive Q waves. The labs revealed leukopenia on CBC. Chemistry panel revealed slightly elevated LFTs and elevated T bili. LFTs revealed. Cardiac enzymes were negative. Negative urine, negative bio fire Serum Lactate measurement was negative. Blood and urine cultures are pending. Slightly elevated creatinine from baseline GUNNER MCCOY JR 31 M [address] [place] [address] / Director: Hernando Felipe M.D. Clinical Laboratory Report Name: GUNNER MCCOY JR Acct: [id number] Status: DIS IN : 1990 [facility] [place] Date: 01/05/21 Age: 31 Sex: M Dis Date: 01/06/21 Loc: ICU Medical [facility] Rm/Bed: E203-1 Spec: [id number] Collected: 01/05/21 Received: 01/05/[address]: Scot Hernandez M.D. Copy To: alt,fax Source: Blood OV Order: Ordered: Blood Culture Comments: Comment Default is separate sites, same time Procedure Result Verified Site Blood Culture Aerobic Final 01/08/21-755 Organism 1 Escherichia coli Sens Sensitivities to Follow Phoned positive Blood Culture Gram Stain report to KEVIN STEEN on 01/06/21 at 0715 [place] [id number]. [place] [id number]. E coli RX M.I.C. --- --------- Amox/Clav S <=8/4 Ampicillin S <=8 Amp/Sul S <=8/4 Cefazolin S <=2 Cefepime S <=2 Ceftriaxone S <=1 Ciprofloxacin S <=0.25 Ertapenem S <=0.5 Gentamicin S <=4 Levofloxacin S <=0.5 Meropenem S <=1 Tobramycin S <=4 Trimeth/Sulfa S <=2/38 Pip/Tazo S <=16 S = SENSITIVE I = INTERMEDIATE R = RESISTANT Blood Culture Anaerobic Final 01/08/21-756 Organism 1 Escherichia coli Sens Sensitivities to Follow Imaging studies: Chest xray revealed with no acute consolidation, pneumothorax or free air per my interpretation Preliminary Findings Only See Final Report For Complete Findings CT ABDOMEN & PELVIS With Contrast: Impression: 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 Moderate splenomegaly measuring 17.2 cm in length. Moderate amount of fecal matter seen in the colon, consistent with constipation Appendiceal caliber measures up to 9.5 mm but not associated with any periappendiceal inflammation. Radiologist: Scot Lobo, Consultation: A consultation was placed with the hospitalist. The case was discussed and diagnostics were reviewed. The patient was evaluated in the ER for further abdirahman tment. I spoke to [facility] about transfer. I spoke to the transplant team, Dr. Garcia who recommends medical admission w/ ERCP. I spoke to Dr Judd, hospitalist and Dr Castro, survival specialist and accepts transfer. They state there is no bed for least 1 to 2 days. Case was reviewed. They do recommend fluids and antibiotics. Exam and history seem consistent with fever with unclear etiology. Negative CAT scan of the abdomen. Clear x-ray. Negative bio fire. Negative urine. Patient earlier in the year had a liver abscess and was septic. Prior blood culture was reviewed. Patient states symptoms feel similar. He was started on broad-spectrum antibiotics. Transfer center was contacted. There are no beds. Patient was stay here until possible transfer. Medicine was consulted. Dr. Awais pena will evaluate. The chart was completed utilizing [employer] Speech voice recognition software. Gr ammatical errors, random word insertions, pronoun errors, and incomplete sentences are an occassional consequence of this system due to software limitations, ambient noise, and hardware issues. Any formal questions or concerns about the content, text, or information contained within the body of this dictation should be directly addressed to the physician manufacturing assistant for clarification. Impression & Plan Fever, Liver transplanted Discharge Plan Visit Data Chief Complaint: Fever Stated Complaint: FEVER,BODY ACHES ED Provider: Indigo Sandoval ED Midlevel Provider: Karen Duran Discharge Problem: Fever, Liver transplanted Patient Disposition: Admitted As Inpatient Condition: Good Forms Stand Alone Forms: [employer] Prescriptions Prescriptions: No Action acetaminophen [Tylenol Extra Strength] 500 mg Tablet 1,000 mg PO Q6H PRN (Reason: Fever Or Pain) RF: 0 ibuprofen 200 mg Tablet 400 mg PO Q6H PRN (Reason: Fever Or Pain) RF: 0 Refresh Lacri-Lube 56.8-42.5 % ointment 1 applic ophthalmic (eye) Q8H PRN (Reason: dry eyes) Qty: 3.5 RF: 5 Referrals Referrals: PCP,NO [Primary Care Provider] - Discharge Problem: Fever Qualifiers: Fever type: unspecified Qualified Code(s): R50.9 - Fever, unspecified
[2021-08-01 04:01] LABS: Hematocrit (blood only) 38.3 % (42-52); Hemoglobin 14.4 g/dL (14.0-18.0); Mean Corpuscular Hemoglobin 28.7 pg (25-34); Mean Corpuscular Hgb Conc 37.6 g/dL (32-36); Mean Corpuscular Volume 76.4 fL (80-100); RDW Coefficient of Variation 13.4 % (11.5-14.5); RDW Standard Deviation 36.7 fL (36.4-46.3); Red Blood Count 5.01 M/uL (4.7-6.1); White Blood Count 3.38 K/uL (4.8-10.8)
[2021-08-01] MEDS ORDERED: ACETAMINOPHEN 1,000 MG/100 ML VIAL IV STA (04:06)
[2021-08-01 04:08] LABS: Appearance Urine Clear (Clear); Bilirubin Urine Negative (Negative); Blood Urine Negative (Negative); Color Urine Yellow; Glucose Urine UA Negative (Negative); Ketones Urine Negative (Negative); Leukocyte Esterase Urine Negative (Negative); Nitrite Urine Negative (Negative); Protein Urine Negative (Negative); Specific Gravity Urine 1.004 (1.000-1.030); Urobilinogen Urine Negative (Negative); pH Urine 6.5 (4.5-7.5)
[2021-08-01 04:11] LABS: INR 1.1 (0.9-1.1); Partial Thromboplastin Ratio 1.1; Partial Thromboplastin Time 28.2 Seconds (21.0-31.0)
[2021-08-01] MEDS ORDERED: OPTIRAY 320 100ml IV ONE (04:24)
[2021-08-01 04:34] LABS: Alanine Aminotransferase 99 U/L (12-78); Albumin Globulin Ratio 1.1 (0.9-2); Alkaline Phosphatase 143 U/L (45-117); Aspartate Aminotransferase 45 U/L (15-37); BUN Creatinine Ratio 11.6 (10-20); Bilirubin,Total 6.7 mg/dl (0.2-1); Blood Urea Nitrogen 19 mg/dl (7-18); Calcium 8.8 mg/dl (8.5-10.1); Carbon Dioxide 24 mmol/L (21-32); Chloride 104 mmol/L (98-107); Creatinine Clr Calc Pharmacy 81.7 ml/min; Est GFR (African American) 65.1 ml/min; Est GFR (Non-African American) 56.1 ml/min; Globulin 3.8 gm/dl (2.5-4.0); Glucose 108 mg/dl (70-99); Magnesium 1.8 mg/dl (1.8-2.4); Potassium 3.7 mmol/L (3.5-5.1); Sodium 137 mmol/L (136-145); Total Protein 7.8 gm/dl (6.4-8.2); Troponin I < 0.015 ng/ml (0-0.045)
[2021-08-01 04:43] LABS: Eosinophils # (auto) 0.01 K/uL (0-0.5); Eosinophils % (auto) 0.3 %; Immature Granulocytes # (auto) 0.02 K/uL (0.00-0.02); Immature Granulocytes % (auto) 0.6 %; Lymphocytes # (auto) 0.29 K/uL (1.2-3.4); Lymphocytes % (auto) 8.6 %; Monocytes # (auto) 0.48 K/uL (0.11-0.59); Monocytes % (auto) 14.2 %; Neutrophils # (auto) 2.58 K/uL (1.4-6.5); Neutrophils % (auto) 76.3 %; Platelet Count 96 K/uL (130-400); Platelet Estimate Decreased (Normal)
[2021-08-01 05:02] LABS: Adenovirus PCR Not Detected (NotDetected); Bordetella parapertussis PCR Not Detected (NotDetected); Bordetella pertussis PCR Not Detected (NotDetected); Chlamydia pneumoniae PCR Not Detected (NotDetected); Coronavirus 229E PCR Not Detected (NotDetected); Coronavirus CoV-2 (COVID19)PCR Not Detected (NotDetected); Coronavirus HKU1 PCR Not Detected (NotDetected); Coronavirus NL63 PCR Not Detected (NotDetected); Coronavirus OC43PCR Not Detected (NotDetected); Human Metapneumovirus PCR Not Detected (NotDetected); Influenza A PCR Not Detected (NotDetected); Influenza B PCR Not Detected (NotDetected); Mycoplasma pneumoniae PCR Not Detected (NotDetected); Parainfluenza Virus 1 PCR Not Detected (NotDetected); Parainfluenza Virus 2 PCR Not Detected (NotDetected); Parainfluenza Virus 3 PCR Not Detected (NotDetected); Parainfluenza Virus 4 PCR Not Detected (NotDetected); Respiratory Syncytial VirusPCR Not Detected (NotDetected); Rhinovirus/Enterovirus PCR Not Detected (NotDetected)
[2021-08-01] MEDS ORDERED: amLODIPine BESYLATE 5 MG TAB PO ONE ×3 (06:49→15:00)
--- NOTE | 2021-08-01 06:49 | History & Physical Report ---
Date of Service August 01, 2021 Assessment & Plan (1) Sepsis: Plan: Immunocompromised patient alpha 1 antitrypsin deficiency status post liver transplantation x2 on tacrolimus Possible recurrent biliary infection hx hepatic abscess status post incomplete ERCP drainage ARF secondary to illness, home NSAIDs contributory hypertension, elevated secondary to medication noncompliance Patient stopped amlodipine few months ago because he did not like taking it. Chronic thrombocytopenia Medical telemetry CS, Zosyn Transfer to [facility] once bed available. GI consult interim as per [facility] ct technician recommendation for possible ERCP. Monitor creatinine response to IVF Patient counseled about adverse effects of NSAIDs on kidney function. Patient agreeable to resuming Amlodipine for BP control DVT prophylaxis. SCDs Re: Thrombocytopenia Full code Text document was generated using [employer] voice recognition software. It may contain grammatical or spelling errors. Kindly contact undersigned for clarification of any documentation item in question. History of Present Illness Chief Complaint: Fever, body aches Primary Care Provider: Timoteo Laurent [facility] Practice History obtained from patient, family, and records. Medical history significant for alpha 1 antitrypsin deficiency status post liver transplantation x2 on tacrolimus, hypertension, chronic thrombocytopenia. Last confinement December 2020 for sepsis secondary to gram-negative bacteremia secondary to hepatic abscess. Patient subsequently transferred to [facility]. Liver abscess not fully drained by ERCP. Endoscopy notes as follows : Successful duodenojejunostomy creation to allow for ERCP post EUS. On ERCP, hepatico-choledocholithiasis status post dilatation of the hepaticojejunostomy and balloon extraction of multiple stones. Right intrahepatic biliary tree abscess noted with subsequent stent placement into the right hepatic duct to facilitate drainage. A small jejunal perforation was identified secondary to cautery enhanced LAMS (lumen apposing metal stent) placement. Defect was successfully closed with hemostatic clips. Repeat ERCP in 6 weeks to exchange stent and performed direct cholangioscopy to ensure complete stone clearance. Multidisciplinary discussion to address issue of leaving the LAMS long-term. Prior ischemic liver injury will likely serve as a nidus for recurrent stone disease requiring repeat ERCPs in the future. ID recommended outpatient Cipro Flagyl course. Repeat CAT scan recommended outpatient to evaluate resolution of abscess. Patient unable to comply with outpatient follow-up imaging/ERCP. Few days history of fever, body aches, not feeling well. No abdominal pain, poor appetite. Patient denies chest pain cough, S OB. At the ER, patient given Zosyn for possible sepsis. [facility] ct technician (Dr. Brandt) recommended [facility] transfer as an admission under [facility] hospitalist service (Dr. Judd) pending bed availability as per conversation with ER provider. Patient's ct technician recommended [facility] GI specialist consultation for possible ERCP. Medical History as above Surgical History : Liver biopsy , liver transplants, tonsillectomy Family History : Hypertension, liver disease Personal/Social history : Non-smoker, no EtOH intake, currently unemployed Allergies Allergy/AdvReac Type Severity Reaction Status Date / Time albuterol Allergy Mild HIVES Verified 08/01/21 02:32 Home Medications Medication Instructions Recorded Confirmed Type acetaminophen 500 mg tablet 1,000 mg PO Q6H PRN 01/05/21 08/01/21 History (Tylenol Extra Strength) ibuprofen 200 mg tablet 400 mg PO Q6H PRN 01/05/21 08/01/21 History white petrolatum-mineral oil 56.8 1 applic OPHTHALMIC (EYE) Q8H PRN 06/21/21 08/01/21 Rx %-42.5 % eye ointment (Refresh #3.5 g Lacri-Lube) tacrolimus 1 mg capsule, 1 mg PO BID 08/01/21 08/01/21 History immediate-release Past Med/Surg History Medical History (Updated 08/01/21 @ 08:16 by Kang Us MD) Bpbtk-[id number] deficiency (02/09/13) History of gout Hx of liver transplant Per Dr. Ariza note from 05/13/2015: "He is status post a OLT at [facility] in [place] x2 (1992 for A1AT and 1995 for chronic rejection). He has had mild chronic rejection as late at 2008. At that time, per Dr. 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 Tang's pediatric GI follow up. 02/09/13 admission for acute liver failure insufficiency, sudden onset with fever, fatigue: 02/10/13 liver bx showed Acute cholangitis 02/13/13 cholangiogram Imaging demonstrated a severe stricture at the biliary /bowel anastomotic site. There was moderate to severe biliary ducts dilatation on the cholangiogram. The anastomotic stenosis was negotiated and an internal external biliary drain was placed in appropriate position 02/20/13 cholangiogram IMAGING FINDINGS: Initial images from the existing biliary catheter demonstrated the catheter with the pigtail loop in satisfactory position. Cholangiogram demonstrated mild biliary ductal dilatation with contrast flow noted in the bowel. A new 8 Swedish biliary catheter was placed and the pigtail loop was appropriately formed in the bowel loop and the catheter sideholes were appropriately placed proximal to the biliary obstruction for adequate drainage. Mid 03-01, saw Dr. Lindo in clinic today, the patient had the biliary tube capped for 2 weeks with no symptoms. He was seen by transplant surgery on 03-11-13, got admitted to [facility] from 03-13-13 to 03-19-13 for disseminated varicella. He underwent CHOLANGIOGRAM BALLOON DILATATION AND CONVERSION OF EXT BILIARY DRAINAGE TO I/E BILIARY CATHETER on 03-24-13 by IR. He is taking prograf 2mg in AM and 3 mg in PM. Pt had cholangiogram on 04-22-13 that showed PERSISTENT MODERATEY SEVERE CHOLEDOCHO-ENTERIC ANASTOMOTIC STRICTURE. UPSIZED EXISTING 10-FR BILIARY DRAIN TO 12-FR INTERNAL EXTERNAL BILIARY DRAIN--> TUBE LEFT CAPPED Pt was scheduled for I/E biliary catheter exchange and upsizing to 14 Fr on 08-27-13. Last time Rt biliary catheter was changed on 10-21-13, there was a brisk flow of contrast through the catheter. Finally, pt's I/E biliary catheter was pulled out on 12-19-13. Review of labs show that T.bili is down to 2.6, FK levels (05-26-14): 4.2, Cr increased to 1.6 on tacrolimus 2 mg qam, 3 mg q pm. 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) Surgical History (Updated 08/01/21 @ 05:59 by Karen Duran PA-C) History of tonsillectomy and adenoidectomy History of tympanoplasty Family History Other No family history of disorders Social History Smoking Status: Never smoker Second Hand Exposure: No; Hx Alcohol Use: No Hx Substance Use: No Preferred Language: Zambian Communication Ability: Effective [employer] Supervisor Required: No Beliefs That Will Affect Care: None marital status: Single Current Living Situation: Family Feels Safe at Home: Yes Assistive Devices: None Review of Systems Review of Systems: As per HPI, all 10 systems reviewed, all other ROS negative Physical Exam Physical Exam: GENERAL: Slightly uncomfortable, no respiratory distress, looks older than state d age SKIN: Normal color, warm HEENT: [place] palpebral conjunctivae, no ptosis, dry buccal mucosa NECK : Supple, no tenderness CHEST : CTA, no tenderness HEART : RRR, no obvious murmurs ABDOMEN: Some distention, nontender EXTREMITIES : No LE swelling/tenderness, no other conspicuous deformities noted NEUROLOGIC : Coherent, no facial asymmetry, no other gross focality Results & Data Results & Data ([facility]) Vital Signs (Past 12 Hours) Vital Signs Temp Pulse Resp BP Pulse Ox 08/01/21 06:30 75 22 158/93 H 97 08/01/21 06:00 82 24 147/93 H 96 08/01/21 05:30 73 20 153/104 H 92 08/01/21 05:05 37.5 C 97 H 18 161/104 H 97 08/01/21 04:28 89 20 164/101 H 96 08/01/21 04:07 20 97 08/01/21 04:00 100 H 16 169/118 H 97 08/01/21 03:55 38.2 C H 08/01/21 02:22 36.8 C 102 H 22 160/124 H 97 Laboratory Results Laboratory Results WBC 3.38 K/uL (4.8-10.8) L 08/01/21 03:45 RBC 5.01 M/uL (4.7-6.1) 08/01/21 03:45 Hgb 14.4 g/dL (14.0-18.0) 08/01/21 03:45 Hct 38.3 % (42-52) L 08/01/21 03:45 MCV 76.4 fL (80-100) L 08/01/21 03:45 MCH 28.7 pg (25-34) 08/01/21 03:45 MCHC 37.6 g/dL (32-36) H 08/01/21 03:45 RDW Std Deviation 36.7 fL (36.4-46.3) 08/01/21 03:45 RDW Coeff of Emre 13.4 % (11.5-14.5) 08/01/21 03:45 Plt Count 96 K/uL (130-400) L 08/01/21 03:45 MPV 10.0 fL (7.4-10.4) 08/01/21 03:45 Immature Gran % (Auto) 0.6 % 08/01/21 03:45 Neut % (Auto) 76.3 % 08/01/21 03:45 Lymph % (Auto) 8.6 % 08/01/21 03:45 Isabela % (Auto) 14.2 % 08/01/21 03:45 Eos % (Auto) 0.3 % 08/01/21 03:45 Baso % (Auto) 0.0 % 08/01/21 03:45 Neut # (Auto) 2.58 K/uL (1.4-6.5) 08/01/21 03:45 Lymph # (Auto) 0.29 K/uL (1.2-3.4) L 08/01/21 03:45 Isabela # (Auto) 0.48 K/uL (0.11-0.59) 08/01/21 03:45 Eos # (Auto) 0.01 K/uL (0-0.5) 08/01/21 03:45 Baso # (Auto) 0.00 K/uL (0-0.2) 08/01/21 03:45 Immature Gran # (Auto) 0.02 K/uL (0.00-0.02) 08/01/21 03:45 Platelet Estimate Decreased (Normal) L 08/01/21 03:45 PT 11.0 Seconds (9.0-12.0) 08/01/21 03:45 INR 1.1 (0.9-1.1) 08/01/21 03:45 APTT 28.2 Seconds (21.0-31.0) 08/01/21 03:45 PTT Ratio 1.1 08/01/21 03:45 Sodium 137 mmol/L (136-145) 08/01/21 03:45 Potassium 3.7 mmol/L (3.5-5.1) 08/01/21 03:45 Chloride 104 mmol/L (98-107) 08/01/21 03:45 Carbon Dioxide 24 mmol/L (21-32) 08/01/21 03:45 Anion Gap 9.0 (3-11) 08/01/21 03:45 BUN 19 mg/dl (7-18) H 08/01/21 03:45 Creatinine 1.61 mg/dl (0.6-1.4) H 08/01/21 03:45 Est Cr Clr Drug Dosing 81.7 ml/min 08/01/21 03:45 Est GFR ( Amer) 65.1 ml/min 08/01/21 03:45 Est GFR (Non-Af Amer) 56.1 ml/min 08/01/21 03:45 BUN/Creatinine Ratio 11.6 (10-20) 08/01/21 03:45 Glucose 108 mg/dl (70-99) H 08/01/21 03:45 Lactate 0.8 mmol/L (0.4-2.0) 08/01/21 03:45 Calcium 8.8 mg/dl (8.5-10.1) 08/01/21 03:45 Magnesium 1.8 mg/dl (1.8-2.4) 08/01/21 03:45 Total Bilirubin 6.7 mg/dl (0.2-1) H 08/01/21 03:45 AST 45 U/L (15-37) H 08/01/21 03:45 ALT 99 U/L (12-78) H 08/01/21 03:45 Alkaline Phosphatase 143 U/L (45-117) H 08/01/21 03:45 Troponin I < 0.015 ng/ml (0-0.045) 08/01/21 03:45 Total Protein 7.8 gm/dl (6.4-8.2) 08/01/21 03:45 Albumin 4.0 gm/dl (3.4-5.0) 08/01/21 03:45 Globulin 3.8 gm/dl (2.5-4.0) 08/01/21 03:45 Albumin/Globulin Ratio 1.1 (0.9-2) 08/01/21 03:45 Procalcitonin 0.12 ng/ml (0-0.5) 08/01/21 03:45 Urine Color Yellow 08/01/21 03:40 Urine Appearance Clear (Clear) 08/01/21 03:40 Urine pH 6.5 (4.5-7.5) 08/01/21 03:40 Ur Specific [place] 1.004 (1.000-1.030) 08/01/21 03:40 Urine Protein Negative (Negative) 08/01/21 03:40 Urine Glucose (UA) Negative (Negative) 08/01/21 03:40 Urine Ketones Negative (Negative) 08/01/21 03:40 Urine Blood Negative (Negative) 08/01/21 03:40 Urine Nitrite Negative (Negative) 08/01/21 03:40 Urine Bilirubin Negative (Negative) 08/01/21 03:40 Urine Urobilinogen Negative (Negative) 08/01/21 03:40 Ur Leukocyte Esterase Negative (Negative) 08/01/21 03:40 Adenovirus (PCR) Not Detected (NotDetected) 08/01/21 03:40 B. pertussis DNA (PCR) Not Detected (NotDetected) 08/01/21 03:40 B.parapertussis DNA PCR Not Detected (NotDetected) 08/01/21 03:40 C. pneumoniae DNA (PCR) Not Detected (NotDetected) 08/01/21 03:40 Coronavirus OC43 (PCR) Not Detected (NotDetected) 08/01/21 03:40 Coronavirus HKU1 (PCR) Not Detected (NotDetected) 08/01/21 03:40 Coronavirus 229E (PCR) Not Detected (NotDetected) 08/01/21 03:40 COVID-19 Eval Order RESPNP at [facility] 08/01/21 03:40 SARS-CoV-2 (PCR) Not Detected (NotDetected) 08/01/21 03:40 Coronavirus NL63 (PCR) Not Detected (NotDetected) 08/01/21 03:40 Human Metapneumovir PCR Not Detected (NotDetected) 08/01/21 03:40 Influenza Type A (PCR) Not Detected (NotDetected) 08/01/21 03:40 Influenza Type B (PCR) Not Detected (NotDetected) 08/01/21 03:40 M. pneumoniae (PCR) Not Detected (NotDetected) 08/01/21 03:40 Parainfluenza 1 (PCR) Not Detected (NotDetected) 08/01/21 03:40 Parainfluenza 2 (PCR) Not Detected (NotDetected) 08/01/21 03:40 Parainfluenza 3 (PCR) Not Detected (NotDetected) 08/01/21 03:40 Parainfluenza 4 (PCR) Not Detected (NotDetected) 08/01/21 03:40 RSV (PCR) Not Detected (NotDetected) 08/01/21 03:40 Entero/Rhino (PCR) Not Detected (NotDetected) 08/01/21 03:[address] abdomen and pelvis initial read: 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 Moderate splenomegalymeasuring 17.2 cmin length. Moderate amount of fecal matter seen in the colon, consistent with constipation Appendiceal caliber measures up to 9.5 mmbut not associated with anyperiappendiceal inflammation. Chest x-ray as per my interpretation no congestion EKG as per my interpretation : Rate 100, NSR, LAD, LAFB, LVH, no ischemia
--- NOTE | 2021-08-01 06:55 | XRay Report ---
XR chest 1V portable CLINICAL HISTORY: SEPSIS COMPARISON STUDY: Chest CT January 10, 2019. Chest radiograph March 05, 2021. FINDINGS: Lung volumes are normal. Lungs are clear. There is no pneumothorax or pleural effusion. Car diac size is normal. Mediastinal contours are normal. There is no evidence for pulmonary edema. IMPRESSION: No acute cardiopulmonary findings. ACT 112: Negative or not required by law. Electronically signed by: Gene Garza M.D. 08/01/2021 6:54 AM
[2021-08-01] MEDS ORDERED: MoRPHine SULFATE 4 MG/ML 1 ML CARP\\VIAL IV STA (07:32)
[2021-08-01] MEDS ORDERED: ONDANSETRON INJ 2 MG/ML 2 ML VIAL IV STA (07:32)
[2021-08-01] MEDS: NSS + 20MEQ KCL 20 MEQ/1,000 ML BAG IV SCH ×2 (08:40→20:13)
[2021-08-01] MEDS ORDERED: TACROLIMUS 1 MG CAP PO SCH (09:00)
--- NOTE | 2021-08-01 09:58 | CT Scan Report ---
CT OF THE ABDOMEN AND PELVIS WITH CONTRAST CLINICAL HISTORY: fever, liver transplant, hx liver abscess COMPARISON STUDY: CT of the abdomen and pelvis January 05, 2021. TECHNIQUE: Following IV administration of 91 mL of Optiray, axial images of the abdomen and pelvis we re obtained from the lung bases to the proximal femurs. Images were reviewed in the axial, sagittal, and coronal planes. IV contrast was administered without complication. Automated exposure control wa s utilized for the study. A dose lowering technique was utilized adhering to the principles of ALARA . CT DOSE: 825.23 mGy.cm FINDINGS: A trace right pleural effusion is noted. There is a right-sided Bochdalek hernia. A biliary stent is in place. Pneumobilia is present. Mild hepatic lobe biliary ductal dilatation has improved since CT of October 05, 2021. No fluid collection within the transplanted liver is noted. There is m ild nodularity of the liver surface. Splenomegaly is unchanged. The main, left and right portal veins are patent. An apparent stent extending between the duodenum and the jejunum is patent. The adrenal glands, kidneys and pancreas are unremarkable. There is no peripancreatic infiltration or fluid. Ther e is no hydronephrosis. There is no evidence for a bowel obstruction. Appendix contains hyperdense ma terial. The appendix is mildly dilated. There is no periappendiceal infiltration. There is no evidenc e for acute appendicitis. Prominent mesenteric lymph nodes are unchanged. IMPRESSION: 1. No acute process within the abdomen or pelvis. 2. Interval resolution of the right hepatic lobe abscess on prior CT. Interval placement of a biliary stent with pneumobilia. Interval improvement in right hepatic lobe biliary ductal dilatation. 3. No change in nodularity of the transplanted liver which may reflect underlying fibrosis/cirrhosis. Stable splenomegaly. No ascites. 4. No bowel obstruction. No bowel wall thickening. ACT 112: Negative or not required by law. Electronically signed by: Gene Garza M.D. 08/01/2021 9:57 AM
[2021-08-01] MEDS ORDERED: ACETAMINOPHEN 325 MG TAB PO PRN (10:01)
[2021-08-01] MEDS ORDERED: PROMETHAZINE HCL 12.5 MG in SODIUM CHLORIDE 0.9% 50 ML IV PRN (10:01)
[2021-08-01] MEDS ORDERED: traMADol HCL 50 MG TABLET PO PRN (10:01)
[2021-08-01 10:07] LABS: iSTAT Creatinine 1.6 mg/dl (0.6-1.3); iSTAT Hemoglobin 13.3 g/dl (14.0-18.0); iSTAT Ionized Calcium 1.17 mmol/l (1.12-1.32); iSTAT Potassium 3.8 mmol/L (3.3-5.0)
[2021-08-01] MEDS: PIPERACILLIN/TAZOBACTAM 4.5 GM in DEXTROSE 5% 100 ML IV SCH ×2 (11:42→19:52)
--- NOTE | 2021-08-01 12:30 | Gastrointestinal Consultation ---
Date of Consultation August 01, 2021 Assessment & Plan (1) Sepsis: 31 year old immunocompromised male s/p liver transplant admitted w/ fevers, malaise and jaundice CT w/ interval resolution of the right hepatic lobe abscess on prior CT. Interval placement of a biliary stent with pneumobilia. Interval improvement in right hepatic lobe biliary ductal dilatation He is awaiting bed for transfer to [facility] GI will discuss case with [facility] Continue ABX and other supportive measures at ths time Thank you for allowing us to participate in the care of this patient. Please call with any acute changes, questions or concerns. Please see addendum below with additional recommendation from my supervising physician. (2) Liver transplanted: Supervising Physician Co-Signing Physician Notes I performed a history and physical examination of the patient today, including specifically on physical exam - soft abdomen. I have discussed the patient's management with the advanced practitioner. Please refer to the nurse kayli bonner's note for the documented findings and plan of care. Discussed with Liver transplant and advanced endoscopy team at [facility], patient has signs suggestive of acute cholangitis likely due to occluded biliary stent, there are no beds available at [facility] for today and perhaps even tomorrow hence to avoid the risk of worsening sepsis given his immunocompromised status and Hx of Liver abscess, we all agreed to perform his ERCP here to exchange his current biliary stent. ERCP today at [facility] Patient was explained in detail regarding risks, benefits, limitations and alternatives of the above endoscopic procedure. Risks of intravenous sedation used for procedure were also explained. Risks include, but not limited to perforation, bleeding, infection, respiratory distress, cardiac arrest and . Patient is also aware about the possibility of missed lesion. Patient's questions were answered. The patient verbalized understanding the information and agreed to undergo the procedure. History of Present Illness Reason for Consultation: elevated LFTs Requesting Physician: Tyshawn Attending Physician: Jayson Villagran MD History of Present Illness 31 year old male with history of alpha 1 antitrypsin deficiency s/p liver transplantation x 2, hypertension, chronic thrombocytopenia recent admission in 12/2020 at [facility] w/ gram-negative bacteremia secondary to hepatic abscess s/p s uccessful duodenojejunostomy admitted through the ED w/ malaise, fevers. He denies any abd pain. No nausea, vomting. No GERD. Moving bowels well. Denies black/bloody stools. No CP, SOB. CTAP 2020: No acute process within the abdomen or pelvis.. Interval resolution of the right hepatic lobe abscess on prior CT. Interval placement of a biliary stent with pneumobilia. Interval improvement in right hepatic lobe biliary ductal dilatationNo change in nodularity of the transplanted liver which may reflect underlying fibrosis/cirrhosis. Stable splenomegaly. No ascites. No bowel obstruction. No bowel wall thickening. Allergies Allergy/AdvReac Type Severity Reaction Status Date / Time albuterol Allergy Mild HIVES Verified 08/01/21 02:32 Home Medications Medication Instructions Recorded Confirmed Type acetaminophen 500 mg tablet 1,000 mg PO Q6H PRN 01/05/21 08/01/21 History (Tylenol Extra Strength) ibuprofen 200 mg tablet 400 mg PO Q6H PRN 01/05/21 08/01/21 History white petrolatum-mineral oil 56.8 1 applic OPHTHALMIC (EYE) Q8H PRN 06/21/21 08/01/21 Rx %-42.5 % eye ointment (Refresh #3.5 g Lacri-Lube) tacrolimus 1 mg capsule, 1 mg PO BID 08/01/21 08/01/21 History immediate-release Patient History Medical History (Updated 08/01/21 @ 08:16 by Kang Us MD) Dueqv-6-iwxinmldjth deficiency (02/09/13) History of gout Hx of liver transplant Per Dr. Ariza note from 05/13/2015: "He is status post a OLT at [facility] in [place] x2 (1992 for A1AT and 1995 for chronic rejection). He has had mild chronic rejection as late at 2008. At that time, per Dr. 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 Tang's pediatric GI follow up. 02/09/13 admission for acute liver failure insufficiency, sudden onset with fever, fatigue: 02/10/13 liver bx showed Acute cholangitis 02/13/13 cholangiogram Imaging demonstrated a severe stricture at the biliary /bowel anastomotic site. There was moderate to severe biliary ducts dilatation on the cholangiogram. The anastomotic stenosis was negotiated and an internal external biliary drain was placed in appropriate position 02/20/13 cholangiogram IMAGING FINDINGS: Initial images from the existing biliary catheter demonstrated the catheter with the pigtail loop in satisfactory position. Cholangiogram demonstrated mild biliary ductal dilatation with contrast flow noted in the bowel. A new 8 Nepali biliary catheter was placed and the pigtail loop was appropriately formed in the bowel loop and the catheter sideholes were appropriately placed proximal to the biliary obstruction for adequate drainage. Mid 03-01, saw Dr. Lindo in clinic today, the patient had the biliary tube capped for 2 weeks with no symptoms. He was seen by transplant surgery on 03-11-13, got admitted to [facility] from 03-13-13 to 03-19-13 for disseminated varicella. He underwent CHOLANGIOGRAM BALLOON DILATATION AND CONVERSION OF EXT BILIARY DRAINAGE TO I/E BILIARY CATHETER on 03-24-13 by IR. He is taking prograf 2mg in AM and 3 mg in PM. Pt had cholangiogram on 04-22-13 that showed PERSISTENT MODERATEY SEVERE CHOLEDOCHO-ENTERIC ANASTOMOTIC STRICTURE. UPSIZED EXISTING 10-FR BILIARY DRAIN TO 12-FR INTERNAL EXTERNAL BILIARY DRAIN--> TUBE LEFT CAPPED Pt was scheduled for I/E biliary catheter exchange and upsizing to 14 Fr on 08-27-13. Last time Rt biliary catheter was changed on 10-21-13, there was a brisk flow of contrast through the catheter. Finally, pt's I/E biliary catheter was pulled out on 12-19-13. Review of labs show that T.bili is down to 2.6, FK levels (05-26-14): 4.2, Cr increased to 1.6 on tacrolimus 2 mg qam, 3 mg q pm. 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) Surgical History (Updated 08/01/21 @ 05:59 by Karen Duran PA-C) History of tonsillectomy and adenoidectomy History of tympanoplasty Family History Other No family history of disorders Social History Smoking Status: Never smoker Second Hand Exposure: No; Hx Alcohol Use: No Hx Substance Use: No Preferred Language: Panamanian Communication Ability: Effective Scale Model Maker Required: No Beliefs That Will Affect Care: None marital status: Single Current Living Situation: Family Feels Safe at Home: Yes Assistive Devices: None Review of Systems Review of Systems: All systems reviewed & are unremarkable except as noted in HPI & below Physical Exam Constitutional: WD/WN, vitals as above Eyes: + icterus Neck: trachea midline, no thyromegaly Respiratory: normal respiratory effort, lungs clear to auscultation Cardiovascular: RRR, no murmur, no edema Gastrointestinal (Abdomen): normal bowel sounds, soft, nontender, no hepatosplenomegaly Skin: +jaundice Results & Data ([facility]) Vital Signs (Past 12 Hours) Vital Signs Temp Pulse Pulse Resp BP BP Pulse Ox 08/01/21 10:09 91 H 16 155/105 H 95 08/01/21 10:01 91 H 19 158/102 H 97 08/01/21 09:32 95 H 20 147/97 H 93 08/01/21 06:30 75 22 158/93 H 97 08/01/21 06:00 82 24 147/93 H 96 08/01/21 05:30 73 20 153/104 H 92 08/01/21 05:05 37.5 C 97 H 18 161/104 H 97 08/01/21 04:28 89 20 164/101 H 96 08/01/21 04:07 20 97 08/01/21 04:00 100 H 16 169/118 H 97 08/01/21 03:55 38.2 C H 08/01/21 02:22 36.8 C 102 H 22 160/124 H 97 Pulse Ox 08/01/21 10:09 08/01/21 10:01 97 08/01/21 09:32 08/01/21 06:30 08/01/21 06:00 08/01/21 05:30 08/01/21 05:05 08/01/21 04:28 08/01/21 04:07 08/01/21 04:00 08/01/21 03:55 08/01/21 02:22 Laboratory Results 08/01/21 08/01/21 08/01/21 Range/Units 03:58 03:45 03:45 WBC (4.8-10.8) K/uL RBC (4.7-6.1) M/uL Hgb (14.0-18.0) g/dL POC Hgb 13.3 L (14.0-18.0) g/dl Hct (42-52) % POC Hct 39 L (42-52) % MCV (80-100) fL MCH (25-34) pg MCHC (32-36) g/dL RDW Std Deviation (36.4-46.3) fL RDW Coeff of Emre (11.5-14.5) % Plt Count (130-400) K/uL MPV (7.4-10.4) fL Immature Gran % (Auto) % Neut % (Auto) % Lymph % (Auto) % [place] % (Auto) % Eos % (Auto) % Baso % (Auto) % Neut # (Auto) (1.4-6.5) K/uL Lymph # (Auto) (1.2-3.4) K/uL [place] # (Auto) (0.11-0.59) K/uL Eos # (Auto) (0-0.5) K/uL Baso # (Auto) (0-0.2) K/uL Immature Gran # (Auto) (0.00-0.02) K/uL Platelet Estimate (Normal) PT (9.0-12.0) Seconds INR (0.9-1.1) APTT (21.0-31.0) Seconds PTT Ratio POC Sodium 137 (135-144) mmol/L Sodium (136-145) mmol/L POC Potassium 3.8 (3.3-5.0) mmol/L Potassium (3.5-5.1) mmol/L POC Chloride 101 (101-112) mmol/L Chloride (98-107) mmol/L Carbon Dioxide (21-32) mmol/L POC Total CO2 22 L (24-31) mmol/L Anion Gap (3-11) POC Anion Gap 19.0 (16-25) mmol/L POC BUN 19 H (7-18) mg/dl BUN (7-18) mg/dl Creatinine (0.6-1.4) mg/dl POC Creatinine 1.6 H (0.6-1.3) mg/dl Est Cr Clr Drug Dosing ml/min Est GFR ( Amer) ml/min Est GFR (Non-Af Amer) ml/min BUN/Creatinine Ratio (10-20) Glucose (70-99) mg/dl POC Glucose (other) 108 H (70-99) mg/dl Lactate 0.8 (0.4-2.0) mmol/L Calcium (8.5-10.1) mg/dl POC Ioniz Calcium Cortez 1.17 (1.12-1.32) mmol/l Magnesium (1.8-2.4) mg/dl Total Bilirubin (0.2-1) mg/dl AST (15-37) U/L ALT (12-78) U/L Alkaline Phosphatase (45-117) U/L Troponin I (0-0.045) ng/ml Total Protein (6.4-8.2) gm/dl Albumin (3.4-5.0) gm/dl Globulin (2.5-4.0) gm/dl Albumin/Globulin Ratio (0.9-2) Procalcitonin 0.12 (0-0.5) ng/ml Urine Color Urine Appearance (Clear) Urine pH (4.5-7.5) Ur Specific [place] (1.000-1.030) Urine Protein (Negative) Urine Glucose (UA) (Negative) Urine Ketones (Negative) Urine Blood (Negative) Urine Nitrite (Negative) Urine Bilirubin (Negative) Urine Urobilinogen (Negative) Ur Leukocyte Esterase (Negative) Adenovirus (PCR) (NotDetected) B. pertussis DNA (PCR) (NotDetected) B.parapertussis DNA PCR (NotDetected) C. pneumoniae DNA (PCR) (NotDetected) Coronavirus OC43 (PCR) (NotDetected) Coronavirus HKU1 (PCR) (NotDetected) Coronavirus 229E (PCR) (NotDetected) COVID-19 Eval Order SARS-CoV-2 (PCR) (NotDetected) Coronavirus NL63 (PCR) (NotDetected) Human Metapneumovir PCR (NotDetected) Influenza Type A (PCR) (NotDetected) Influenza Type B (PCR) (NotDetected) M. pneumoniae (PCR) (NotDetected) Parainfluenza 1 (PCR) (NotDetected) Parainfluenza 2 (PCR) (NotDetected) Parainfluenza 3 (PCR) (NotDetected) Parainfluenza 4 (PCR) (NotDetected) RSV (PCR) (NotDetected) Entero/Rhino (PCR) (NotDetected) 08/01/21 08/01/21 08/01/21 Range/Units 03:45 03:45 03:45 WBC 3.38 L (4.8-10.8) K/uL RBC 5.01 (4.7-6.1) M/uL Hgb 14.4 (14.0-18.0) g/dL POC Hgb (14.0-18.0) g/dl Hct 38.3 L (42-52) % POC Hct (42-52) % MCV 76.4 L (80-100) fL MCH 28.7 (25-34) pg MCHC 37.6 H (32-36) g/dL RDW Std Deviation 36.7 (36.4-46.3) fL RDW Coeff of Emre 13.4 (11.5-14.5) % Plt Count 96 L (130-400) K/uL MPV 10.0 (7.4-10.4) fL Immature Gran % (Auto) 0.6 % Neut % (Auto) 76.3 % Lymph % (Auto) 8.6 % [place] % (Auto) 14.2 % Eos % (Auto) 0.3 % Baso % (Auto) 0.0 % Neut # (Auto) 2.58 (1.4-6.5) K/uL Lymph # (Auto) 0.29 L (1.2-3.4) K/uL [place] # (Auto) 0.48 (0.11-0.59) K/uL Eos # (Auto) 0.01 (0-0.5) K/uL Baso # (Auto) 0.00 (0-0.2) K/uL Immature Gran # (Auto) 0.02 (0.00-0.02) K/uL Platelet Estimate Decreased L (Normal) PT 11.0 (9.0-12.0) Seconds INR 1.1 (0.9-1.1) APTT 28.2 (21.0-31.0) Seconds PTT Ratio 1.1 POC Sodium (135-144) mmol/L Sodium 137 (136-145) mmol/L POC Potassium (3.3-5.0) mmol/L Potassium 3.7 (3.5-5.1) mmol/L POC Chloride (101-112) mmol/L Chloride 104 (98-107) mmol/L Carbon Dioxide 24 (21-32) mmol/L POC Total CO2 (24-31) mmol/L Anion Gap 9.0 (3-11) POC Anion Gap (16-25) mmol/L POC BUN (7-18) mg/dl BUN 19 H (7-18) mg/dl Creatinine 1.61 H (0.6-1.4) mg/dl POC Creatinine (0.6-1.3) mg/dl Est Cr Clr Drug Dosing 81.7 ml/min Est GFR ( Amer) 65.1 ml/min Est GFR (Non-Af Amer) 56.1 ml/min BUN/Creatinine Ratio 11.6 (10-20) Glucose 108 H (70-99) mg/dl POC Glucose (other) (70-99) mg/dl Lactate (0.4-2.0) mmol/L Calcium 8.8 (8.5-10.1) mg/dl POC Ioniz Calcium [place] (1.12-1.32) mmol/l Magnesium 1.8 (1.8-2.4) mg/dl Total Bilirubin 6.7 H (0.2-1) mg/dl AST 45 H (15-37) U/L ALT 99 H (12-78) U/L Alkaline Phosphatase 143 H (45-117) U/L Troponin I < 0.015 (0-0.045) ng/ml Total Protein 7.8 (6.4-8.2) gm/dl Albumin 4.0 (3.4-5.0) gm/dl Globulin 3.8 (2.5-4.0) gm/dl Albumin/Globulin Ratio 1.1 (0.9-2) Procalcitonin (0-0.5) ng/ml Urine Color Urine Appearance (Clear) Urine pH (4.5-7.5) Ur Specific [place] (1.000-1.030) Urine Protein (Negative) Urine Glucose (UA) (Negative) Urine Ketones (Negative) Urine Blood (Negative) Urine Nitrite (Negative) Urine Bilirubin (Negative) Urine Urobilinogen (Negative) Ur Leukocyte Esterase (Negative) Adenovirus (PCR) (NotDetected) B. pertussis DNA (PCR) (NotDetected) B.parapertussis DNA PCR (NotDetected) C. pneumoniae DNA (PCR) (NotDetected) Coronavirus OC43 (PCR) (NotDetected) Coronavirus HKU1 (PCR) (NotDetected) Coronavirus 229E (PCR) (NotDetected) COVID-19 Eval Order SARS-CoV-2 (PCR) (NotDetected) Coronavirus NL63 (PCR) (NotDetected) Human Metapneumovir PCR (NotDetected) Influenza Type A (PCR) (NotDetected) Influenza Type B (PCR) (NotDetected) M. pneumoniae (PCR) (NotDetected) Parainfluenza 1 (PCR) (NotDetected) Parainfluenza 2 (PCR) (NotDetected) Parainfluenza 3 (PCR) (NotDetected) Parainfluenza 4 (PCR) (NotDetected) RSV (PCR) (NotDetected) Entero/Rhino (PCR) (NotDetected) 08/01/21 08/01/21 08/01/21 Range/Units 03:40 03:40 03:40 WBC (4.8-10.8) K/uL RBC (4.7-6.1) M/uL Hgb (14.0-18.0) g/dL POC Hgb (14.0-18.0) g/dl Hct (42-52) % POC Hct (42-52) % MCV (80-100) fL MCH (25-34) pg MCHC (32-36) g/dL RDW Std Deviation (36.4-46.3) fL RDW Coeff of Emre (11.5-14.5) % Plt Count (130-400) K/uL MPV (7.4-10.4) fL Immature Gran % (Auto) % Neut % (Auto) % Lymph % (Auto) % [place] % (Auto) % Eos % (Auto) % Baso % (Auto) % Neut # (Auto) (1.4-6.5) K/uL Lymph # (Auto) (1.2-3.4) K/uL [place] # (Auto) (0.11-0.59) K/uL Eos # (Auto) (0-0.5) K/uL Baso # (Auto) (0-0.2) K/uL Immature Gran # (Auto) (0.00-0.02) K/uL Platelet Estimate (Normal) PT (9.0-12.0) Seconds INR (0.9-1.1) APTT (21.0-31.0) Seconds PTT Ratio POC Sodium (135-144) mmol/L Sodium (136-145) mmol/L POC Potassium (3.3-5.0) mmol/L Potassium (3.5-5.1) mmol/L POC Chloride (101-112) mmol/L Chloride (98-107) mmol/L Carbon Dioxide (21-32) mmol/L POC Total CO2 (24-31) mmol/L Anion Gap (3-11) POC Anion Gap (16-25) mmol/L POC BUN (7-18) mg/dl BUN (7-18) mg/dl Creatinine (0.6-1.4) mg/dl POC Creatinine (0.6-1.3) mg/dl Est Cr Clr Drug Dosing ml/min Est GFR ( Amer) ml/min Est GFR (Non-Af Amer) ml/min BUN/Creatinine Ratio (10-20) Glucose (70-99) mg/dl POC Glucose (other) (70-99) mg/dl Lactate (0.4-2.0) mmol/L Calcium (8.5-10.1) mg/dl POC Ioniz Calcium [place] (1.12-1.32) mmol/l Magnesium (1.8-2.4) mg/dl Total Bilirubin (0.2-1) mg/dl AST (15-37) U/L ALT (12-78) U/L Alkaline Phosphatase (45-117) U/L Troponin I (0-0.045) ng/ml Total Protein (6.4-8.2) gm/dl Albumin (3.4-5.0) gm/dl Globulin (2.5-4.0) gm/dl Albumin/Globulin Ratio (0.9-2) Procalcitonin (0-0.5) ng/ml Urine Color Yellow Urine Appearance Clear (Clear) Urine pH 6.5 (4.5-7.5) Ur Specific [place] 1.004 (1.000-1.030) Urine Protein Negative (Negative) Urine Glucose (UA) Negative (Negative) Urine Ketones Negative (Negative) Urine Blood Negative (Negative) Urine Nitrite Negative (Negative) Urine Bilirubin Negative (Negative) Urine Urobilinogen Negative (Negative) Ur Leukocyte Esterase Negative (Negative) Adenovirus (PCR) Not Detected (NotDetected) B. pertussis DNA (PCR) Not Detected (NotDetected) B.parapertussis DNA PCR Not Detected (NotDetected) C. pneumoniae DNA (PCR) Not Detected (NotDetected) Coronavirus OC43 (PCR) Not Detected (NotDetected) Coronavirus HKU1 (PCR) Not Detected (NotDetected) Coronavirus 229E (PCR) Not Detected (NotDetected) COVID-19 Eval Order RESPNP at [facility] SARS-CoV-2 (PCR) Not Detected (NotDetected) Coronavirus NL63 (PCR) Not Detected (NotDetected) Human Metapneumovir PCR Not Detected (NotDetected) Influenza Type A (PCR) Not Detected (NotDetected) Influenza Type B (PCR) Not Detected (NotDetected) M. pneumoniae (PCR) Not Detected (NotDetected) Parainfluenza 1 (PCR) Not Detected (NotDetected) Parainfluenza 2 (PCR) Not Detected (NotDetected) Parainfluenza 3 (PCR) Not Detected (NotDetected) Parainfluenza 4 (PCR) Not Detected (NotDetected) RSV (PCR) Not Detected (NotDetected) Entero/Rhino (PCR) Not Detected (NotDetected)
--- NOTE | 2021-08-01 14:40 | Anesthesiology Consultation ---
Date of Service August 01, 2021 Assessment & Plan (1) Encounter for pre-operative examination: Chart Review Chart Review: Acceptable Risk for Surgery History Surgery Operation Date: 08/01/21 20:05 Proposed Procedures p Endoscopic Retrograde Cholangiopancreato - Lisandra Murillo MD Height/Weight Height: 5 ft 11 in Weight: 104.2 kg Allergies Allergy/AdvReac Type Severity Reaction Status Date / Time albuterol Allergy Mild HIVES Verified 08/01/21 02:32 Medications Home Medications Medication Instructions Recorded Confirmed Last Taken acetaminophen 500 mg tablet 1,000 mg PO Q6H PRN 01/05/21 08/01/21 07/31/21 23:00 (Tylenol Extra Strength) ibuprofen 200 mg tablet 400 mg PO Q6H PRN 01/05/21 08/01/21 Unknown white petrolatum-mineral oil 56.8 1 applic OPHTHALMIC (EYE) Q8H PRN 06/21/21 08/01/21 Unknown %-42.5 % eye ointment (Refresh #3.5 g Lacri-Lube) tacrolimus 1 mg capsule, 1 mg PO BID 08/01/21 08/01/21 Unknown immediate-release Active Medications Generic Name Dose Route Start Last Admin Trade Name Freq PRN Reason Stop Dose Admin Acetaminophen 325 mg 08/01/21 10:01 08/01/21 11:53 Acetaminophen 325 Mg Tab PO 08/31/21 10:00 325 mg Q6H PRN Administration Mild Pain Potassium Chloride/Sodium Chloride 20 meq in 1,000 mls @ 75 mls/hr 08/01/21 07:00 08/01/21 08:40 Normal Saline W/20 Meq Kcl IV 08/31/21 06:59 75 mls/hr .[id number] TRENT Administration Piperacillin Sod/Tazobactam 120 mls @ 30 mls/hr 08/01/21 10:30 08/01/21 11:42 Sod 4.5 gm/ Dextrose IV 08/03/21 10:29 30 mls/hr Q8H TRENT Administration Protocol Miscellaneous Information 1 ea 08/01/21 03:22 08/01/21 05:18 Piperacill/Tazobac Consult Active N/A 08/31/21 03:21 1 ea UD PRN Administration Consult Tramadol HCl 25 mg 08/01/21 10:01 08/01/21 12:53 Tramadol Hcl 50 Mg Tablet PO 08/31/21 10:00 25 mg Q4H PRN Administration Pain Past Medical History Medical History (Updated 08/01/21 @ 14:40 by Deondre Jacobsen MD) Acute renal failure superimposed on stage 3 chronic kidney disease Isvfp-3-yzvemjsxnlw deficiency (02/09/13) Hepatic abscess History of gout Hx of liver transplant Per Dr. Ariza note from 05/13/2015: "He is status post a OLT at [facility] in [place] x2 (1992 for A1AT and 1995 for chronic rejection). He has had mild chronic rejection as late at 2008. At that time, per Dr. 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 Tang's pediatric GI follow up. 02/09/13 admission for acute liver failure insufficiency, sudden onset with fever, fatigue: 02/10/13 liver bx showed Acute cholangitis 02/13/13 cholangiogram Imaging demonstrated a severe stricture at the biliary /bowel anastomotic site. There was moderate to severe biliary ducts dilatation on the cholangiogram. The anastomotic stenosis was negotiated and an internal external biliary drain was placed in appropriate position 02/20/13 cholangiogram IMAGING FINDINGS: Initial images from the existing biliary catheter demonstrated the catheter with the pigtail loop in satisfactory position. Cholangiogram demonstrated mild biliary ductal dilatation with contrast flow noted in the bowel. A new 8 Maori biliary catheter was placed and the pigtail loop was appropriately formed in the bowel loop and the catheter sideholes were appropriately placed proximal to the biliary obstruction for adequate drainage. Mid 03-01, saw Dr. Lindo in clinic today, the patient had the biliary tube capped for 2 weeks with no symptoms. He was seen by transplant surgery on 03-11-13, got admitted to [facility] from 03-13-13 to 03-19-13 for disseminated varicella. He underwent CHOLANGIOGRAM BALLOON DILATATION AND CONVERSION OF EXT BILIARY DRAINAGE TO I/E BILIARY CATHETER on 03-24-13 by IR. He is taking prograf 2mg in AM and 3 mg in PM. Pt had cholangiogram on 04-22-13 that showed PERSISTENT MODERATEY SEVERE CHOLEDOCHO-ENTERIC ANASTOMOTIC STRICTURE. UPSIZED EXISTING 10-FR BILIARY DRAIN TO 12-FR INTERNAL EXTERNAL BILIARY DRAIN--> TUBE LEFT CAPPED Pt was scheduled for I/E biliary catheter exchange and upsizing to 14 Fr on 08-27-13. Last time Rt biliary catheter was changed on 10-21-13, there was a brisk flow of contrast through the catheter. Finally, pt's I/E biliary catheter was pulled out on 12-19-13. Review of labs show that T.bili is down to 2.6, FK levels (05-26-14): 4.2, Cr increased to 1.6 on tacrolimus 2 mg qam, 3 mg q pm. 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) Past Family History Family History Other No family history of disorders Past Surgical History Surgical History (Updated 08/01/21 @ 14:38 by Deondre Jacobsen MD) History of ERCP History of liver transplant History of tonsillectomy and adenoidectomy History of tympanoplasty Social History Smoking Status: Never smoker Hx Alcohol Use: No Hx Substance Use: No Physical Exam Vital Signs Last Vital Signs Temp 37.5 C 08/01/21 05:05 Pulse 91 H 08/01/21 10:09 Resp 16 08/01/21 10:09 BP 155/105 H 08/01/21 10:09 Pulse Ox 95 08/01/21 10:09 Testing Laboratory Results 08/01/21 03:45 08/01/21 03:45 PT 11.0 Seconds (9.0-12.0) 08/01/21 03:45 INR 1.1 (0.9-1.1) 08/01/21 03:45 APTT 28.2 Seconds (21.0-31.0) 08/01/21 03:45 Urine Color Yellow 08/01/21 03:40 Urine Appearance Clear (Clear) 08/01/21 03:40 Urine pH 6.5 (4.5-7.5) 08/01/21 03:40 Ur Specific [place] 1.004 (1.000-1.030) 08/01/21 03:40 Urine Protein Negative (Negative) 08/01/21 03:40 Urine Glucose (UA) Negative (Negative) 08/01/21 03:40 Urine Ketones Negative (Negative) 08/01/21 03:40 Urine Nitrite Negative (Negative) 08/01/21 03:40 Ur Leukocyte Esterase Negative (Negative) 08/01/21 03:40 08/01/21 03:58 POC Glucose (other) 108 H Electrocardiogram Date: 08/01/21 Findings: + NSR @ (100) Chest X-Ray Date: 08/01/21 Findings: + NAD Echocardiogram Date: 01/14/19 EF: 55-60% LV Function: normal Valvular Disease: + no significant valvular disease
--- NOTE | 2021-08-01 14:52 | Hospitalist Progress Note ---
Date of Service August 01, 2021 Assessment & Plan (1) Sepsis: Plan: Sepsis Immunocompromised patient Suspected Cholangitis -CT ABD: No acute process within the abdomen or pelvis. Interval resolution of the right hepatic lobe abscess on prior CT. Interval placement of a biliary stent with pneumobilia. Interval improvement in right hepatic lobe biliary ductal dilatation. No change in nodularity of the transplanted liver which may reflect underlying fibrosis/cirrhosis. Stable splenomegaly. No ascites. No bowel obstruction. No bowel wall thickening. -Blood cultures pending Continue IV fluids, Zosyn Appreciate GI help Plan for ERCP today H/O Alpha 1 antitrypsin deficiency S/P liver transplantation On tacrolimus Plan to be transferred to [facility] when bed is available Lead Applications Developer accepted the patient Tacrolimus levels pending H/O Hepatic abscess S/P biliary stent CT ABD as above Hypertensive Urgency Likely situational secondary to pain/Non compliance Past stopped taking Amlodipine Restarted on Amlodipine Monitor Acute Kidney Injury Likely due to NSAIDs use Cr: 1.6 Ibuprofen discontinued Avoid nephrotoxic agents as able Monitor renal function Chronic thrombocytopenia Secondary to chronic liver disease No acute bleeding issues Monitor platelet count DVT Px: SCDs Re: Thrombocytopenia Code Status Full code Admission and Anticipated Discharge Date Admission Date: August 01, 2021 Subjective Patient is seen and examined at bedside States having generalized body ache, headache, dizziness and feels very tired Also reports poor appetite Discussed with gastroenterology today Denies nausea, vomiting, abdominal pain, diarrhea Also denies chest pain, dyspnea Offers no other complaints Review of Systems Review of Systems: All systems reviewed & are unremarkable except as noted in Subjective Physical Exam Physical Exam: Physical Exam: Vitals signs as noted above General Appearance:Obese, no apparent distress Head: normocephalic, Atraumatic Eyes: normal inspection, EOMI Neck: supple, Trachea midline Respiratory/Chest: Normal breath sounds, CTA, No accessory muscle use Cardiovascular: S1, S2, No murmur, +Tachycardia Abdomen/GI:Soft, Non tender, mildly distended, Bowel sounds present Extremities/Musculoskeletal:normal inspection, no edema Neurologic/Psych:AAOX3, grossly no focal neurological deficits Skin: normal color, warm Results & Data Results & Data ([facility]) Vital Signs (Past 12 Hours) Vital Signs Temp Pulse Pulse Resp BP BP Pulse Ox 08/01/21 10:09 91 H 16 155/105 H 95 08/01/21 10:01 91 H 19 158/102 H 97 08/01/21 09:32 95 H 20 147/97 H 93 08/01/21 06:30 75 22 158/93 H 97 08/01/21 06:00 82 24 147/93 H 96 08/01/21 05:30 73 20 153/104 H 92 08/01/21 05:05 37.5 C 97 H 18 161/104 H 97 08/01/21 04:28 89 20 164/101 H 96 08/01/21 04:07 20 97 08/01/21 04:00 100 H 16 169/118 H 97 08/01/21 03:55 38.2 C H Pulse Ox 08/01/21 10:09 08/01/21 10:01 97 08/01/21 09:32 08/01/21 06:30 08/01/21 06:00 08/01/21 05:30 08/01/21 05:05 08/01/21 04:28 08/01/21 04:07 08/01/21 04:00 08/01/21 03:55 Laboratory Results Short CBC 08/01/21 Range/Units 03:45 WBC 3.38 L (4.8-10.8) K/uL Hgb 14.4 (14.0-18.0) g/dL Hct 38.3 L (42-52) % Plt Count 96 L (130-400) K/uL BMP 08/01/21 03:45 Sodium 137 Potassium 3.7 Chloride 104 Carbon Dioxide 24 BUN 19 H Creatinine 1.61 H Glucose 108 H Calcium 8.8 Cardiac Enzymes 08/01/21 Range/Units 03:45 Troponin I < 0.015 (0-0.045) ng/ml Liver Function 08/01/21 Range/Units 03:45 Total Bilirubin 6.7 H (0.2-1) mg/dl AST 45 H (15-37) U/L ALT 99 H (12-78) U/L Alkaline Phosphatase 143 H (45-117) U/L Albumin 4.0 (3.4-5.0) gm/dl Urine 08/01/21 Range/Units 03:40 Urine Color Yellow Urine Appearance Clear (Clear) Urine pH 6.5 (4.5-7.5) Ur Specific [place] 1.004 (1.000-1.030) Urine Protein Negative (Negative) Urine Glucose (UA) Negative (Negative)
--- NOTE | 2021-08-01 15:40 | Electrocardiogram Report ---
Test Reason : Blood Pressure : / mmHG Vent. Rate : 100 BPM Atrial Rate : 100 BPM P-R Int : 156 ms QRS Dur : 082 ms QT Int : 350 ms P-R-T Axes : 053 -12 062 degrees QTc Int : 451 ms Normal sinus rhythm Moderate voltage criteria for LVH, may be normal variant Borderline ECG When compared with ECG of 05-JAN-2021 20:04, No significant change was found Confirmed by Jesus Capps ([id number]) on 08/01/2021 3:39:55 PM Referred By: REFERRED SELF Confirmed By:Jesus Capps
[2021-08-01] MEDS ORDERED: INDOMETHACIN 50 MG SUPP PR ONE (16:17)
[2021-08-01] MEDS ORDERED: MIDAZOLAM HCL 1 MG/ML 2ML VIAL ONE (16:29)
[2021-08-01] MEDS ORDERED: fentaNYL citrate 100 MCG/2 ML VIAL ONE (16:29)
[2021-08-01] MEDS ORDERED: fentaNYL citrate 100 MCG/2 ML VIAL IV PRN (16:39)
[2021-08-01] MEDS ORDERED: ONDANSETRON INJ 2 MG/ML 2 ML VIAL IV PRN (16:39)
[2021-08-01] MEDS ORDERED: ATROPINE SULFATE 0.1 MG/ML 10ML SYR IV PRN (16:39)
[2021-08-01] MEDS ORDERED: ePHEDrine sulfate 50 MG/ML AMP IV PRN (16:39)
[2021-08-01] MEDS ORDERED: PROPOFOL IV EMULSION 10 MG/ML 20 ML VIAL IV ONE (16:58)
[2021-08-01] MEDS ORDERED: DEXAMETHASONE SOD INJ 4 MG/ML VIAL ONE (16:58)
[2021-08-01] MEDS ORDERED: ONDANSETRON INJ 2 MG/ML 2 ML VIAL ONE (16:58)
--- NOTE | 2021-08-01 17:17 | Operative Report ---
Post Operative Report Pre & Post Diagnosis Operation Date: 08/01/21 20:05 Pre-Op Diagnosis: Sepsis; Liver transplanted Post-Op Diagnosis: Sepsis; Liver transplanted I identified the patient and participated in the time-out.: Yes Procedure Operation Date: 08/01/21 20:05 Actual Procedures p Endoscopic Retrograde Cholangiopancreatogram(Not Applicable) - Lisandra Murillo MD Surgeon Lisandra Murillo MD Hospital Nurse None Estimated Blood Loss 0 Findings See Below (Biliary stent and stones removed, new stent placed) Specimens None Description of Procedure ERCP I attest to the content of the Intraoperative Record and any orders documented therein. Any exceptions are noted below.
[2021-08-01] MEDS ORDERED: LABETALOL HCL IV 5 MG/ML 20ML IV STA (17:45)
[2021-08-01] MEDS ORDERED: LABETALOL HCL IV 5 MG/ML 20ML IV ONE (17:48)
--- NOTE | 2021-08-01 18:03 | GI REPORT ---
Patient Name: Rodney Aguirre Procedure Date: 08/01/2021 4:11 PM Date of : 1990 Admit Type: Inpatient Age: 31 Gender: Male Attending MD: Lisandra Murillo MD Procedure: ERCP Providers: Lisandra Murillo MD Referring MD: Jayson Villagran Md, Parth Munson Md, Lui Partida DO, Bradly Brandt MD Indications: For therapy of ascending cholangitis, Stent change Medicines: General Anesthesia Complications: No immediate complications. Estimated Blood Loss: Estimated blood loss: none. Procedure: Pre-Anesthesia Assessment: - Prior to the procedure, a History and Physical was performed, and patient medications, allergies and sensitivities were reviewed. The patient's tolerance of previous anesthesia was reviewed. - The risks and benefits of the procedure and the sedation options and risks were discussed with the patient. All questions were answered and informed consent was obtained. - Patient identification and proposed procedure were verified prior to the procedure by the physician and the nurse. The procedure was verified in the procedure room. - Pre-procedure physical examination revealed no contraindications to sedation. After obtaining informed consent, the scope was passed under direct vision. Throughout the procedure, the patient's blood pressure, pulse, and oxygen saturations were monitored continuously. The Endoscope was introduced through the mouth, and advanced to the duodenum and used to inject contrast into the bile duct. The ERCP was accomplished without difficulty. The patient tolerated the procedure well. Findings: A biliary stent and an Axios stent were visible on the supervisor meter repair shop film. The esophagus was successfully intubated under direct vision. The scope was advanced to the hepaticojejunostomy without detailed examination of the pharynx, larynx and associated structures, and upper GI tract. The upper GI tract was grossly normal. Using a therapeutic 1T esophagogastroduodenoscopy scope, the scope was passed under direct vision through the upper GI tract. A previously placed Axios (LAMS) duodenojejunostomy metal stent was seen in the duodenal bulb connecting with the jejunum near the hepaticojejunostomy area (EDEE). One retained metallic endoclip seen in the jejunum on the opposite wall from the Axios stent. One plastic stent was removed from the common bile duct using a snare. The [id number] endoscope with a cap was then able to traverse the Axios duodenojejunostomy into the pancreaticobiliary jejunal limb. The hepaticojejunostomy was identified and appeared open. A 0.035 inch straight standard wire was passed into the biliary tree. The 8.5 mm balloon was passed over the guidewire and the bile duct was then deeply cannulated. Contrast was injected. I personally interpreted the bile duct images. Ductal flow of contrast was adequate. Image quality was adequate. Contrast extended to the bifurcation intrahepatic ducts. Opacification of the common hepatic duct, hepatic duct bifurcation and left and right hepatic ducts and all intrahepatic branches was successful. The maximum diameter of the ducts was 8 mm. The biliary tree was swept with an 11.5 mm balloon starting at the right main hepatic duct. Sludge was swept from the duct. A few black stones were removed. No stones remained. One 7 Fr by 7 cm plastic biliary stent with a single external flap and a single internal flap was placed into the right hepatic duct. Bile flowed through the stent. The stent was in good position. Impression: - Intact Axios stent (LAMS) duodenojejunostomy. - One plastic stent was removed from the biliary tree/ hepaticojejunostomy. - Choledocholithiasis was found. Complete removal was accomplished by balloon extraction. - One plastic biliary stent was placed into the right hepatic duct. Recommendation: - [facility]. - Repeat ERCP in 6 weeks to remove stent, to be scheduled at [facility] with , may consider direct cholangioscopy to ensure complete stone clearance as previously planned. - Continue IV ABx. - Monitor LFTs. Lisandra Murillo MD 08/01/2021 6:03:30 PM This report has been signed electronically. Note Initiated On: 08/01/2021 4:11 PM Number of Addenda: 0 I attest to the content of the Intraoperative Record and orders documented therein, exceptions below {[id number]}
--- NOTE | 2021-08-01 18:20 | Anesthesiology Progress Note ---
Date of Service August 01, 2021 Anesthesia Post Procedure Vital Signs Vital Signs: Temp Pulse Pulse Pulse Resp BP BP 08/01/21 18:15 83 18 149/93 H 08/01/21 18:05 37 C 82 19 146/98 H 08/01/21 17:55 79 18 154/99 H 08/01/21 17:45 79 18 163/103 H 08/01/21 17:35 82 18 143/117 H 08/01/21 17:29 36 C L 86 18 169/110 H 08/01/21 15:30 85 08/01/21 15:16 37.2 C 94 H 18 158/106 H 08/01/21 14:30 37.3 C 88 16 156/108 H 08/01/21 10:09 91 H 16 155/105 H 08/01/21 10:01 91 H 19 158/102 H 08/01/21 09:32 95 H 20 147/97 H 08/01/21 06:30 75 22 158/93 H 08/01/21 06:00 82 24 147/93 H 08/01/21 05:30 73 20 153/104 H 08/01/21 05:05 37.5 C 97 H 18 161/104 H 08/01/21 04:28 89 20 164/101 H 08/01/21 04:07 20 08/01/21 04:00 100 H 16 169/118 H 08/01/21 03:55 38.2 C H 08/01/21 02:22 36.8 C 102 H 22 160/124 H Pulse Ox Pulse Ox 08/01/21 18:15 94 08/01/21 18:05 94 08/01/21 17:55 97 08/01/21 17:45 97 08/01/21 17:35 100 08/01/21 17:29 99 08/01/21 15:30 08/01/21 15:16 98 08/01/21 14:30 08/01/21 10:09 95 08/01/21 10:01 97 97 08/01/21 09:32 93 08/01/21 06:30 97 08/01/21 06:00 96 08/01/21 05:30 92 08/01/21 05:05 97 08/01/21 04:28 96 08/01/21 04:07 97 08/01/21 04:00 97 08/01/21 03:55 08/01/21 02:22 97 Pain Intensity Generalized: Pain Intensity: 2 Transfer of Care Handoff Completed per policy Notes Mental Status: alert / awake / arousable Patient Amnestic to Procedure: Yes Nausea / Vomiting: adequately controlled Pain: adequately controlled Airway Patency, RR, SpO2: stable & adequate BP & HR: stable & adequate Hydration State: stable & adequate Anesthetic Complications: no major complications apparent and Pt Satisfied with anesthetic care
[2021-08-01] MEDS: oxyCODONE HCL IR 5 MG TAB (IMMEDIATE RELEASE) PO PRN (20:31)
[2021-08-01] MEDS: TACROLIMUS 1 MG CAP PO SCH (20:31)
--- NOTE | 2021-08-01 22:11 | Fluoroscopy Report ---
FL ERCP biliary ductal CLINICAL HISTORY: ERCP COMPARISON STUDY: None FLUOROSCOPY TIME: 3 minutes and 3 seconds. NUMBER OF FLUOROSCOPIC IMAGES: 10 FINDINGS: Intraoperative fluoroscopy images are presented for review and shows catheter and stent within right upper quadrant with subsequent placement of the duodenal carotid, extension of the wire to the anatom ical region of the biliary ducts and the intrabiliary contrast injection. No significant biliary dila tation is seen. No definite filling defect is demonstrated to suggest calculi. IMPRESSION: As above. ACT 112: Negative or not required by law. The above report was generated using voice recognition software. It may contain grammatical, syntax o r spelling errors. Electronically signed by: Alpa Pike DO 08/01/2021 10:10 PM
[2021-08-02] MEDS: oxyCODONE HCL IR 5 MG TAB (IMMEDIATE RELEASE) PO PRN ×4 (01:51→20:32)
[2021-08-02] MEDS: PIPERACILLIN/TAZOBACTAM 4.5 GM in DEXTROSE 5% 100 ML IV SCH ×3 (04:04→20:20)
[2021-08-02 07:46] LABS: Hematocrit (blood only) 40.8 % (42-52); Hemoglobin 14.7 g/dL (14.0-18.0); Mean Corpuscular Hemoglobin 28.4 pg (25-34); Mean Corpuscular Volume 78.9 fL (80-100); RDW Coefficient of Variation 13.6 % (11.5-14.5); RDW Standard Deviation 38.5 fL (36.4-46.3); Red Blood Count 5.17 M/uL (4.7-6.1); White Blood Count 3.92 K/uL (4.8-10.8)
[2021-08-02 08:25] LABS: Albumin Level 3.9 gm/dl (3.4-5.0); Bilirubin,Total 7.2 mg/dl (0.2-1); Calcium 9.4 mg/dl (8.5-10.1); Creatinine Clr Calc Pharmacy 73.4 ml/min; Est GFR (Non-African American) 50.1 ml/min; Globulin 3.9 gm/dl (2.5-4.0); Total Protein 7.8 gm/dl (6.4-8.2)
[2021-08-02 08:26] LABS: Immature Granulocytes # (auto) 0.01 K/uL (0.00-0.02); Immature Granulocytes % (auto) 0.3 %; Lymphocytes # (auto) 0.23 K/uL (1.2-3.4); Lymphocytes % (auto) 5.9 %; Mean Platelet Volume 10.3 fL (7.4-10.4); Monocytes # (auto) 0.47 K/uL (0.11-0.59); Neutrophils # (auto) 3.21 K/uL (1.4-6.5); Neutrophils % (auto) 81.8 %; Platelet Count 98 K/uL (130-400)
--- NOTE | 2021-08-02 09:16 | Gastroenterology Progress Note ---
Date of Service August 02, 2021 Assessment & Plan (1) Sepsis: Plan: 31 year old immunocompromised male s/p liver transplant admitted w/ fevers, malaise and jaundice CT w/ interval resolution of the right hepatic lobe abscess on prior CT. Interval placement of a biliary stent with pneumobilia. Interval improvement in right hepatic lobe biliary ductal dilatation. He underwent urgent ERCP yesterday as he was unable to be transfered to [facility] for removal of biliary s tent, treatment of cholangitis - Can continue with transfer to [facility] given persistent elevated LFT - Repeat ERCP in 6 weeks to remove stent - to be scheduled at [facility] with - may consider direct cholangioscopy to ensure complete stone clearance as previously planned. - Continue IV ABx. - Monitor LFTs. - No GI contraindication to diet Thank you for allowing us to participate in the care of this patient. Please call with any acute changes, questions or concerns. Please see addendum below with additional recommendation from my supervising physician. (2) Liver transplanted: Admission and Anticipated Discharge Date Admission Date: August 01, 2021 Supervising Physician Co-Signing Physician Notes I performed a history and physical examination of the patient today, including specifically on physical exam - soft abdomen. I have discussed the patient's management with the advanced practitioner. Please refer to the nurse practitioner's note for the documented findings and plan of care. Feeling much better today. LFTs stable. Vitals normal. Bilirubin usually takes time to recover. Please keep his transfer as he still needs to be evaluated at a liver center. Subjective s/p ERCP for removal of biliary stent, treatment of cholangitis feeling better this am no abd pain no fevers tolerating po less fatigue/tired/weak lfts persistently high ERCP 2020: - Intact Axios stent (LAMS) duodenojejunostomy. - One plastic stent was removed from the biliary tree/ hepaticojejunostomy. - Choledocholithiasis was found. Complete removal was accomplished by balloon extraction. - One plastic biliary stent was placed into the right hepatic duct. Review of Systems Review of Systems: All systems reviewed & are unremarkable except as noted in HPI & below Physical Exam Constitutional: WD/WN, vitals as above Respiratory: normal respiratory effort, lungs clear to auscultation Cardiovascular: Rate/Rhythm: regular rate and regular rhythm Gastrointestinal (Abdomen): normal bowel sounds, soft, nontender, no hepatosplenomegaly Skin: + jaundice Results & Data ([facility]) Vital Signs (Past 12 Hours) Vital Signs Temp Pulse Pulse Resp BP Pulse Ox 08/02/21 07:20 37 C 82 16 155/98 H 99 08/02/21 03:53 37.1 C 79 18 157/89 H 97 08/01/21 23:50 79 08/01/21 21:38 37.1 C 72 18 156/90 H 92 Laboratory Results 08/02/21 08/02/21 08/02/21 Range/Units 07:35 07:35 07:35 WBC 3.92 L (4.8-10.8) K/uL RBC 5.17 (4.7-6.1) M/uL Hgb 14.7 (14.0-18.0) g/dL POC Hgb (14.0-18.0) g/dl Hct 40.8 L (42-52) % POC Hct (42-52) % MCV 78.9 L (80-100) fL MCH 28.4 (25-34) pg MCHC 36.0 (32-36) g/dL RDW Std Deviation 38.5 (36.4-46.3) fL RDW Coeff of Emre 13.6 (11.5-14.5) % Plt Count 98 L (130-400) K/uL MPV 10.3 (7.4-10.4) fL Immature Gran % (Auto) 0.3 % Neut % (Auto) 81.8 % Lymph % (Auto) 5.9 % [place] % (Auto) 12.0 % Eos % (Auto) 0.0 % Baso % (Auto) 0.0 % Neut # (Auto) 3.21 (1.4-6.5) K/uL Lymph # (Auto) 0.23 L (1.2-3.4) K/uL [place] # (Auto) 0.47 (0.11-0.59) K/uL Eos # (Auto) 0.00 (0-0.5) K/uL Baso # (Auto) 0.00 (0-0.2) K/uL Immature Gran # (Auto) 0.01 (0.00-0.02) K/uL POC Sodium (135-144) mmol/L Sodium 137 (136-145) mmol/L POC Potassium (3.3-5.0) mmol/L Potassium 4.0 (3.5-5.1) mmol/L POC Chloride (101-112) mmol/L Chloride 104 (98-107) mmol/L Carbon Dioxide 25 (21-32) mmol/L POC Total CO2 (24-31) mmol/L Anion Gap 7.0 (3-11) POC Anion Gap (16-25) mmol/L POC BUN (7-18) mg/dl BUN 19 H (7-18) mg/dl Creatinine 1.77 H (0.6-1.4) mg/dl POC Creatinine (0.6-1.3) mg/dl Est Cr Clr Drug Dosing 73.4 ml/min Est GFR ( Amer) 58.0 ml/min Est GFR (Non-Af Amer) 50.1 ml/min BUN/Creatinine Ratio 11.0 (10-20) Glucose 116 H (70-99) mg/dl POC Glucose (other) (70-99) mg/dl Calcium 9.4 (8.5-10.1) mg/dl POC Ioniz Calcium [place] (1.12-1.32) mmol/l Total Bilirubin 7.2 H (0.2-1) mg/dl AST 42 H (15-37) U/L ALT 99 H (12-78) U/L Alkaline Phosphatase 154 H (45-117) U/L Total Protein 7.8 (6.4-8.2) gm/dl Albumin 3.9 (3.4-5.0) gm/dl Globulin 3.9 (2.5-4.0) gm/dl Albumin/Globulin Ratio 1.0 (0.9-2) Tacrolimus Pending 08/01/21 Range/Units 03:58 WBC (4.8-10.8) K/uL RBC (4.7-6.1) M/uL Hgb (14.0-18.0) g/dL POC Hgb 13.3 L (14.0-18.0) g/dl Hct (42-52) % POC Hct 39 L (42-52) % MCV (80-100) fL MCH (25-34) pg MCHC (32-36) g/dL RDW Std Deviation (36.4-46.3) fL RDW Coeff of Emre (11.5-14.5) % Plt Count (130-400) K/uL MPV (7.4-10.4) fL Immature Gran % (Auto) % Neut % (Auto) % Lymph % (Auto) % [place] % (Auto) % Eos % (Auto) % Baso % (Auto) % Neut # (Auto) (1.4-6.5) K/uL Lymph # (Auto) (1.2-3.4) K/uL [place] # (Auto) (0.11-0.59) K/uL Eos # (Auto) (0-0.5) K/uL Baso # (Auto) (0-0.2) K/uL Immature Gran # (Auto) (0.00-0.02) K/uL POC Sodium 137 (135-144) mmol/L Sodium (136-145) mmol/L POC Potassium 3.8 (3.3-5.0) mmol/L Potassium (3.5-5.1) mmol/L POC Chloride 101 (101-112) mmol/L Chloride (98-107) mmol/L Carbon Dioxide (21-32) mmol/L POC Total CO2 22 L (24-31) mmol/L Anion Gap (3-11) POC Anion Gap 19.0 (16-25) mmol/L POC BUN 19 H (7-18) mg/dl BUN (7-18) mg/dl Creatinine (0.6-1.4) mg/dl POC Creatinine 1.6 H (0.6-1.3) mg/dl Est Cr Clr Drug Dosing ml/min Est GFR ( Amer) ml/min Est GFR (Non-Af Amer) ml/min BUN/Creatinine Ratio (10-20) Glucose (70-99) mg/dl POC Glucose (other) 108 H (70-99) mg/dl Calcium (8.5-10.1) mg/dl POC Ioniz Calcium [place] 1.17 (1.12-1.32) mmol/l Total Bilirubin (0.2-1) mg/dl AST (15-37) U/L ALT (12-78) U/L Alkaline Phosphatase (45-117) U/L Total Protein (6.4-8.2) gm/dl Albumin (3.4-5.0) gm/dl Globulin (2.5-4.0) gm/dl Albumin/Globulin Ratio (0.9-2) Tacrolimus
[2021-08-02] MEDS: amLODIPine BESYLATE 5 MG TAB PO SCH (09:49)
[2021-08-02] MEDS: TACROLIMUS 1 MG CAP PO SCH ×2 (09:50→20:30)
[2021-08-02] MEDS ORDERED: MoRPHine SULFATE 2 MG/ML CARP IV PRN (10:09)
[2021-08-02] MEDS ORDERED: traMADol HCL 50 MG TABLET PO PRN (10:10)
[2021-08-02] MEDS ORDERED: MoRPHine SULFATE 2 MG/ML CARP IV ONE (10:10)
[2021-08-02] MEDS ORDERED: FAMOTIDINE 10 MG TABLET PO PRN (11:33)
[2021-08-02] MEDS ORDERED: FAMOTIDINE 10 MG TABLET PO ONE (12:00)
--- NOTE | 2021-08-02 13:53 | Hospitalist Progress Note ---
Date of Service August 02, 2021 Assessment & Plan (1) Sepsis: Plan: Sepsis Immunocompromised patient Suspected Cholangitis -CT ABD: No acute process within the abdomen or pelvis. Interval resolution of the right hepatic lobe abscess on prior CT. Interval placement of a biliary stent with pneumobilia. Interval improvement in right hepatic lobe biliary ductal dilatation. No change in nodularity of the transplanted liver which may reflect underlying fibrosis/cirrhosis. Stable splenomegaly. No ascites. No bowel obstruction. No bowel wall thickening. -S/P ERCP:Intact Axios stent duodenojejunostomy. 1 plastic stent was removed from the biliary tree/hepatojejunostomy. Choledocholithiasis was found. Complete removal was accomplished by balloon extraction. 1 plastic biliary stent was placed into the right hepatic duct. -Needs repeat ERCP in 6 weeks to remove stent, to be scheduled at [facility] with . Also to consider direct cholangioscopy to ensure complete stone clearance as previously planned. -Blood cultures: Negative to date Continue IV fluids, Zosyn Appreciate GI help Monitor LFTs Plan to transfer to [facility] when bed available H/O Alpha 1 antitrypsin deficiency S/P liver transplantation On tacrolimus Tacrolimus level pending Plan to be transferred to [facility] when bed is available Varsity Baseball Coach accepted the patient H/O Hepatic abscess S/P biliary stent CT ABD as above Hypertensive Urgency Likely situational secondary to pain/Non compliance Past stopped taking Amlodipine Restarted on Amlodipine Monitor Acute Kidney Injury Likely due to NSAIDs use Cr: 1.6> 1.7 Ibuprofen discontinued Avoid nephrotoxic agents as able Monitor renal function Consider nephrology evaluation if renal function continues to worsen Chronic thrombocytopenia Secondary to chronic liver disease No acute bleeding issues Monitor platelet count DVT Px: SCDs Re: Thrombocytopenia Code Status Full code Disposition [facility] Admission and Anticipated Discharge Date Admission Date: August 01, 2021 Subjective Patient is seen and examined at bedside Reports having shoulder/back ache Also restates having heartburn Denies nausea, vomiting, abdominal pain, diarrhea Also denies chest pain, dyspnea Plan to discharge to [facility] when bed available Review of Systems Review of Systems: All systems reviewed & are unremarkable except as noted in Subjective Physical Exam Physical Exam: Physical Exam: Vitals signs as noted above General Appearance:Obese, no apparent distress Head: normocephalic, Atraumatic Eyes: normal inspection, EOMI Neck: supple, Trachea midline Respiratory/Chest: Normal breath sounds, CTA, No accessory muscle use Cardiovascular: S1, S2, No murmur Abdomen/GI:Soft, Non tender, mildly distended, Bowel sounds present Extremities/Musculoskeletal:normal inspection, no edema Neurologic/Psych:AAOX3, grossly no focal neurological deficits Skin: normal color, warm Results & Data Results & Data ([facility]) Vital Signs (Past 12 Hours) Vital Signs Temp Pulse Pulse Resp BP Pulse Ox 08/02/21 11:00 36.8 C 80 18 146/98 H 98 08/02/21 07:20 37 C 82 16 155/98 H 99 08/02/21 06:20 82 08/02/21 03:53 37.1 C 79 18 157/89 H 97 Laboratory Results Short CBC 08/02/21 Range/Units 07:35 WBC 3.92 L (4.8-10.8) K/uL Hgb 14.7 (14.0-18.0) g/dL Hct 40.8 L (42-52) % Plt Count 98 L (130-400) K/uL BMP 08/02/21 07:35 Sodium 137 Potassium 4.0 Chloride 104 Carbon Dioxide 25 BUN 19 H Creatinine 1.77 H Glucose 116 H Calcium 9.4 Liver Function 08/02/21 Range/Units 07:35 Total Bilirubin 7.2 H (0.2-1) mg/dl AST 42 H (15-37) U/L ALT 99 H (12-78) U/L Alkaline Phosphatase 154 H (45-117) U/L Albumin 3.9 (3.4-5.0) gm/dl
[2021-08-03] MEDS: oxyCODONE HCL IR 5 MG TAB (IMMEDIATE RELEASE) PO PRN ×2 (00:44→07:56)
[2021-08-03] MEDS ORDERED: DICLOFENAC SOD 1% GEL 100 GM TUBE EXT PRN ×2 (00:51→00:53)
[2021-08-03] MEDS: PIPERACILLIN/TAZOBACTAM 4.5 GM in DEXTROSE 5% 100 ML IV SCH (04:44)
--- NOTE | 2021-08-03 07:27 | Discharge Summary ---
Date of Service August 03, 2021 Admission HPI Per Admitting Provider History obtained from patient, family, and records. Medical history significant for alpha 1 antitrypsin deficiency status post liver transplantation x2 on tacrolimus, hypertension, chronic thrombocytopenia. Last confinement December 2020 for sepsis secondary to gram-negative bacteremia secondary to hepatic abscess. Patient subsequently transferred to [facility]. Liver abscess not fully drained by ERCP. Endoscopy notes as follows : Successful duodenojejunostomy creation to allow for ERCP post EUS. On ERCP, hepatico-choledocholithiasis status post dilatation of the hepaticojejunostomy and balloon extraction of multiple stones. Right intrahepatic biliary tree abscess noted with subsequent stent placement into the right hepatic duct to facilitate drainage. A small jejunal perforation was identified secondary to cautery enhanced LAMS (lumen apposing metal stent) placement. Defect was successfully closed with hemostatic clips. Repeat ERCP in 6 weeks to exchange stent and performed direct cholangioscopy to ensure complete stone clearance. Multidisciplinary discussion to address issue of leaving the LAMS long-term. Prior ischemic liver injury will likely serve as a nidus for recurrent stone disease requiring repeat ERCPs in the future. ID recommended outpatient Cipro Flagyl course. Repeat CAT scan recommended outpatient to evaluate resolution of abscess. Patient unable to comply with outpatient follow-up imaging/ERCP. Few days history of fever, body aches, not feeling well. No abdominal pain, poor appetite. Patient denies chest pain cough, S OB. At the ER, patient given Zosyn for possible sepsis. [facility] software programmer (Dr. Brandt) recommended [facility] transfer as an admission under [facility] hospitalist service (Dr. Judd) pending bed availability as per conversation with ER provider. Patient's software programmer recommended [facility] GI specialist consultation for possible ERCP. Medical History as above Surgical History : Liver biopsy , liver transplants, tonsillectomy Family History : Hypertension, liver disease Personal/Social history : Non-smoker, no EtOH intake, currently unemployed Discharge Data Consultations 08/01/21 06:08 ED Decision to Admit Stat 08/01/21 06:57 Consult Gastroenterology Routine 08/03/21 06:19 Burn CD for patient Stat Procedures Performed Operation Date: 08/01/21 20:05 Actual Procedures p Endoscopic Retrograde Cholangiopancreatogram(Not Applicable) - Lisandra Murillo MD Hospital Course (1) Sepsis: as per AM provider Sepsis Immunocompromised patient Suspected Cholangitis -CT ABD: No acute process within the abdomen or pelvis. Interval resolution of the right hepatic lobe abscess on prior CT. Interval placement of a biliary st ent with pneumobilia. Interval improvement in right hepatic lobe biliary ductal dilatation. No change in nodularity of the transplanted liver which may reflect underlying fibrosis/cirrhosis. Stable splenomegaly. No ascites. No bowel obstruction. No bowel wall thickening. -S/P ERCP:Intact Axios stent duodenojejunostomy. 1 plastic stent was removed from the biliary tree/hepatojejunostomy. Choledocholithiasis was found. Complete removal was accomplished by balloon extraction. 1 plastic biliary stent was placed into the right hepatic duct. -Needs repeat ERCP in 6 weeks to remove stent, to be scheduled at [facility] with . Also to consider direct cholangioscopy to ensure complete stone clearance as previously planned. -Blood cultures: Negative to date Continue IV fluids, Zosyn Appreciate GI help Monitor LFTs Plan to transfer to [facility] when bed available H/O Alpha 1 antitrypsin deficiency S/P liver transplantation On tacrolimus Tacrolimus level pending Plan to be transferred to [facility] when bed is available [employer] accepted the patient H/O Hepatic abscess S/P biliary stent CT ABD as above Hypertensive Urgency Likely situational secondary to pain/Non compliance Past stopped taking Amlodipine Restarted on Amlodipine Monitor Acute Kidney Injury Likely due to NSAIDs use Cr: 1.6> 1.7 Ibuprofen discontinued Avoid nephrotoxic agents as able Monitor renal function Consider nephrology evaluation if renal function continues to worsen 08/03/21 [facility] made aware [facility] bed availability. Total time to prepare this discharge summary was less than 10 mins.
[2021-08-03] MEDS: TACROLIMUS 1 MG CAP PO SCH (07:56)
[2021-08-03] MEDS: amLODIPine BESYLATE 5 MG TAB PO SCH (07:57)
[2021-08-03 08:11] LABS: Hematocrit (blood only) 37.7 % (42-52); Hemoglobin 13.7 g/dL (14.0-18.0); Mean Corpuscular Hemoglobin 28.1 pg (25-34); Mean Corpuscular Hgb Conc 36.3 g/dL (32-36); Mean Corpuscular Volume 77.4 fL (80-100); RDW Coefficient of Variation 13.6 % (11.5-14.5); RDW Standard Deviation 38.4 fL (36.4-46.3); Red Blood Count 4.87 M/uL (4.7-6.1)
[2021-08-03 08:15] LABS: Mean Platelet Volume 10.5 fL (7.4-10.4); Platelet Count 81 K/uL (130-400)
[2021-08-03 08:55] LABS: Albumin Level 3.6 gm/dl (3.4-5.0); BUN Creatinine Ratio 14.5 (10-20); Creatinine Clr Calc Pharmacy 72.2 ml/min; Est GFR (African American) 56.9 ml/min; Est GFR (Non-African American) 49.1 ml/min; Magnesium 2.4 mg/dl (1.8-2.4); Potassium 3.8 mmol/L (3.5-5.1)
[2021-08-03 09:01] LABS: Albumin Globulin Ratio 0.9 (0.9-2); Bilirubin,Total 5.7 mg/dl (0.2-1); Globulin 3.8 gm/dl (2.5-4.0); Total Protein 7.4 gm/dl (6.4-8.2)
== END 2021-08-03 10:45 | disposition short-term general hospital (02) | DRG 872 ==
LOC: ED 02:19 → SUATTDRO 06:53 → EDINP 06:53 → 2W 09:32